=== PATIENT | female | born 1965 | race Caucasian/White ===

== ENCOUNTER 2016-03-16 12:46 | Outpatient (RCR) | payer OTHER ==
--- OUTSIDE RECORDS SUMMARY | 2016-02-03 12:28 | XMS REPORT | Continuity of Care Document ---
Author Author [facility] Organization [facility] Address Unknown Phone Unavailable Care Team Providers Care Liability Claims Adjuster Name Role Phone MICHAEL MACHUCA MD PCP Insurance Providers Payer Name Policy Number Subscriber Name Relationship [employer] [id number] Peter Downing 17 Self / Same As Patient Advance Directives Directive Response Recorded Date/Time Advance Directives No 09/27/14 10:30am Health Care Power of Development Representative No 09/27/14 10:30am Organ Donor No 09/27/14 10:30am Resuscitation Status Full Code 09/27/14 10:30am Problems No known problems or medical conditions. Medications Medication Dose Route Sig Days/Qty Instructions Order Date Discontinued Date Status Alprazolam 1 Mg PO THREE TIMES A DAY 02/02/07 04/23/13 Discontinued Propranolol HCl 02/02/07 02/01/09 Discontinued [Xopenex] 1 Inh INH QID PRN 02/02/07 04/17/13 Discontinued Levothyroxine Sodium 50 Mcg PO DAILY 08/06/08 04/17/13 Discontinued Promethazine HCl/Codeine 01/31/09 06/05/09 Discontinued Propranolol HCl 20 Mg PO FOUR TIMES DAILY 02/01/09 Active Fluoxetine HCl (Prozac) 06/05/09 06/09/10 Discontinued Budesonide/Formoterol Fumarate 2 Puff IH TWICE A DAY 06/09/10 Active Cefuroxime Axetil (Ceftin) 1 Each PO TWICE A DAY 10 Qty 06/13/1009/09 Discontinued Atropine Sulfate/Normal Saline 1 Mg IV 06/13/10 06/13/10 Discontinued Ipratropium [place] 0.5 Mg IH THREE TIMES A DAY 30 Qty 06/13/10 Discontinued Prednisone 10 Mg PO DIRECTED 12 Qty 3 TABS DAILY X2 DAYS 06/13/1004/21 Discontinued Phentermine Hcl 37.5 Mg PO DAILY 09/09/10 04/17/13 Discontinued [Motrin 600MG] PO EVERY 6 HOURS 40 Qty 09/15/10 04/17/13 Discontinued [Tylenol #3] PO EVERY 4HRS 15 Qty 09/15/10 04/17/13 Discontinued Metronidazole 1 Each PO THREE TIMES A DAY 30 Qty 06/30/12 04/17/13 Discontinued Aspirin/Acetaminophen/Caffeine 1 Tab PO EVERY 6 HOURS PRN 04/17/13 04/23/13 Discontinued Albuterol Sulfate/Ipratropium 2.5 Ml IH FOUR TIMES DAILY 04/17/13 Discontinued [Kenalog] 80 Mg IM NEEDED 04/17/13 04/23/13 Discontinued Levothyroxine Sodium (Levothroid) 50 Mcg PO DAILY 04/17/13 Active Phentermine Hcl 15 Mg PO DAILY 04/17/13 04/23/13 Discontinued Omeprazole 20 Mg PO DAILY PRN HEARTBURN 04/17/13 04/23/13 Discontinued Promethazine HCl/Codeine 5 Ml PO EVERY 4HRS PRN COUGH 04/17/13 Active Albuterol Sulfate 2.5 Mg IH THREE TIMES A DAY PT HOME DOSE IS 1.25MG/ 3ML 04/17/13 Active Levofloxacin 1 Each PO DAILY 5 Qty 04/20/13 Active Prednisone 1 Tab PO DAILY 5 Days 04/20/13 Active Ondansetron HCl 8 Mg PO EVERY 4HRS PRN NAUSEA 20 Qty 04/20/13 Active Acetaminophen 500 Mg PO EVERY 6 HOURS PRN PAIN 0 Qty 04/23/13 Active Albuterol Sulfate 2.5 Mg INH RT Q2HR FROM START TIME PRN SHORTNESS OF BREATH 0 Qty 04/23/13 Active Alprazolam 1 Mg PO THREE TIMES A DAY 0 Qty 04/23/13 Active Levofloxacin 250 Mg PO DAILY 5 Qty 04/23/13 Active Prednisone 1 Tab PO DAILY 5 Days 04/23/13 Active Fluconazole 1 Each PO Every 48 Hours 4 Qty 04/23/13 Active Social History Social History Problem Response Recorded Date/Time Alcohol Use Occasionally Uses 04/17/2013 4:41pm Recreational Drug Use No 04/17/2013 4:41pm Recent Foreign Travel No 04/17/2013 4:41pm Recent Infectious Disease Exposure No 04/17/2013 4:41pm Hospitalization with Isolation Denies 04/23/2013 2:53pm Smoking Status Former Smoker 09/27/2014 10:30am Query Response Start Date Stop Date Smoking Status Former Smoker 09/27/2006 Hospital Discharge Instructions No hospital discharge instructions. Plan of Care No plan of care. Functional Status No functional status results. Allergies, Adverse Reactions, Alerts Allergen Type Severity Reaction Status Last Updated Levofloxacin Allergy Unknown NAUSEA/VOMITING, NUMBNESS OF FACE AND ARMS Active 01/17/08 moxifloxacin ([id number]) Allergy Unknown N/V Active 01/17/08 Immunizations Name Given Type Date of Pneumonia Vaccine 04/17/11 Historical Date of Influenza Vaccine 04/19/13 Historical Vital Signs Acute Vital Signs Vital Response Date/Time Temperature (Fahrenheit) 97.0 degrees F (97.6 - 99.5) Temperature (Calculated Celsius) 36.54789 degrees C (36.4 - 37.5) Temperature Source Tympanic Pulse Rate (adult) 84 bpm (60 - 90) Respiratory Rate 20 bpm (12 - 24) O2 Sat by Pulse Oximetry 99 % (88 - 100) Blood Pressure 110/80 mm Hg Pain Pain Intensity 0 Height (Feet) 5 feet Height (Inches) 2.00 inches Height (Calculated Centimeters) 157.800065 cm Weight (Pounds) 112 pounds Weight (Calculated Grams) 83813.346 gm Weight (Calculated Kilograms) 50.897665 kilograms Calculated BMI 20.48 Results Laboratory Results Test Name Result Units Flags Reference Collection Date/Time Result Date/ Time Comments White Blood Count 8.3 10^3/uL 4.3-11.0 09/10/2014 5:33pm 09/10/2014 5: 43pm Red Blood Count 5.05 10^6/uL 4.35-5.85 09/10/2014 5:33pm 09/10/2014 5: 43pm Hemoglobin 14.7 G/DL 11.5-16.0 09/10/2014 5:33pm 09/10/2014 5:43pm Hematocrit 44 % 35-52 09/10/2014 5:33pm 09/10/2014 5:43pm Mean Corpuscular Volume 87 FL 80-99 09/10/2014 5:33pm 09/10/2014 5: 43pm Mean Corpuscular Hemoglobin 29 PG 25-34 09/10/2014 5:33pm 09/10/2014 5: 43pm Mean Corpuscular Hemoglobin Concent 33 G/DL 32-36 09/10/2014 5:33pm 05/2014 5:43pm Red Cell Distribution Width 13.5 % 10.0-14.5 09/10/2014 5:33pm 2014 5:43pm Platelet Count 321 10^3/uL 130-400 09/10/2014 5:33pm 09/10/2014 5:43pm Mean Platelet Volume 10.9 FL H 7.4-10.4 09/10/2014 5:33pm 09/10/2014 5: 43pm Prothrombin Time 11.2 SEC L 12.2-14.7 09/10/2014 5:33pm 09/10/2014 5: 52pm INR Comment 0.8 0.8-1.4 09/10/2014 5:33pm 09/10/2014 5:52pm INTERPRETIVE DATA SUGGESTED THERAPEUTIC RANGE FOR INR'S: VENOUS THROMBOSIS, PULMONARY EMBOLISM, OR PREVENTION OF SYSTEMIC EMBOLISM (EG. IN ATRIAL FIBRILLATION): 2.0 - 3.0 MECHANICAL PROSTHETIC HEART VALVES: 2.5 - 3.5* *NOTE: INR'S UP TO 4.5 MAY BE NECESSARY IN SELECTED GROUPS OF HIGH RISK PATIENTS. [employer] [employer] CONSENSUS CONFERENCE ON ANTITHROMBOTIC THERAPY (2000). Activated Partial Thromboplast Time 31 SEC 24-35 09/10/2014 5:33pm 05/2014 5:53pm Sodium Level 140 MMOL/L 135-145 09/10/2014 5:33pm 09/10/2014 6:03pm Potassium Level 4.7 MMOL/L 3.6-5.0 09/10/2014 5:33pm 09/10/2014 6:03pm Chloride Level 101 MMOL/L 98-107 09/10/2014 5:33pm 09/10/2014 6:03pm Carbon Dioxide Level 29 MMOL/L 21-32 09/10/2014 5:33pm 09/10/2014 6: 03pm Blood Urea Nitrogen 14 MG/DL 7-18 09/10/2014 5:33pm 09/10/2014 6:03pm Creatinine 0.84 MG/DL 0.60-1.30 09/10/2014 5:33pm 09/10/2014 6:03pm BUN/Creatinine Ratio 17 09/10/2014 5:33pm 09/10/2014 6:03pm Estimat Glomerular Filtration Rate > 60 09/10/2014 5:33pm 2014 6:03pm GFR INTERPRETIVE DATA UNITS FOR ESTIMATED GFR (eGFR): mL/min/1.73 M2 REFERENCE RANGE FOR ESTIMATED GFR (eGFR) eGFR NORMAL eGFR >60 MODERATELY DECREASED eGFR 30-59 SEVERLY DECREASED eGFR 15-29 KIDNEY FAILURE <15 (OR DIALYSIS) Glucose Level 97 MG/DL 70-105 09/10/2014 5:33pm 09/10/2014 6:03pm Calcium Level 10.0 MG/DL 8.5-10.1 09/10/2014 5:33pm 09/10/2014 6:03pm Total Bilirubin 0.3 MG/DL 0.1-1.0 09/10/2014 5:33pm 09/10/2014 6:03pm Alkaline Phosphatase 76 U/L 40-136 09/10/2014 5:33pm 09/10/2014 6:03pm Aspartate Amino Transf (AST/SGOT) 18 U/L 5-34 09/10/2014 5:33pm 2014 6:03pm Alanine Aminotransferase (ALT/SGPT) 22 U/L 0-55 09/10/2014 5:33pm 09/10 6:03pm Total Protein 7.5 G/DL 6.4-8.2 09/10/2014 5:33pm 09/10/2014 6:03pm Albumin 4.4 G/DL 3.2-4.5 09/10/2014 5:33pm 09/10/2014 6:03pm Procedures No known history of procedures. Encounters Encounter Location Date/Time Registered [facility] Day [facility] 09/27/14 10:07am Registered Clinic [facility] 09/24/14 9:39am Registered Clinic [facility] 09/10/14 5:26pm
[2016-02-03 13:21] LABS: BASOPHILS % (AUTO) 0 % (0-10); EOSINOPHILS # (AUTO) 0.1 10^3/uL (0.0-0.3); EOSINOPHILS % (AUTO) 1 % (0-10); LYMPHOCYTES # (AUTO) 0.5 X 10^3 (1.0-4.0); LYMPHOCYTES % (AUTO) 11 % (12-44); MEAN CORPUSCULAR HEMOGLOBIN 29 PG (25-34); MEAN CORPUSCULAR HGB CONC 34 G/DL (32-36); MEAN CORPUSCULAR VOLUME 85 FL (80-99); MEAN PLATELET VOLUME 10.5 FL (7.4-10.4); MONOCYTES # (AUTO) 0.4 X 10^3 (0.0-1.0); MONOCYTES % (AUTO) 9 % (0-12); NEUTROPHILS # (AUTO) 3.7 X 10^3 (1.8-7.8); NEUTROPHILS % (AUTO) 79 % (42-75); PLATELET COUNT 221 10^3/uL (130-400); RED BLOOD COUNT 4.73 10^6/uL (4.35-5.85); RED CELL DISTRIBUTION WIDTH 13.4 % (10.0-14.5); WHITE BLOOD COUNT 4.6 10^3/uL (4.3-11.0)
[2016-02-03 14:40] LABS: ALANINE AMINOTRANSFERASE 20 U/L (0-55); ALBUMIN 4.2 G/DL (3.2-4.5); ANION GAP 9 MMOL/L (5-14); ASPARTATE AMINO TRANSFERASE 16 U/L (5-34); BILIRUBIN,TOTAL 0.5 MG/DL (0.1-1.0); BLOOD UREA NITROGEN 13 MG/DL (7-18); BUN/CREATININE RATIO 16; CALCIUM 9.2 MG/DL (8.5-10.1); CARBON DIOXIDE 29 MMOL/L (21-32); CHLORIDE 102 MMOL/L (98-107); CREATININE SERUM 0.83 MG/DL (0.60-1.30); GFR ESTIMATED > 60; GLUCOSE 145 MG/DL (70-105); POTASSIUM 3.5 MMOL/L (3.6-5.0); SODIUM 140 MMOL/L (135-145); TOTAL PROTEIN 6.8 G/DL (6.4-8.2)
[2016-02-03 15:00] LABS: THYROID STIMULATING HORMONE 0.08 UIU/ML (0.35-4.94)
[~2016-03-16 12:46] MED LIST: AC500T PO; ALBU2.5V52 INH; ALBUNEBRX IH; ALPR0.25 PO; ALPR1T PO; ASPI1TAB15 PO; BUDE6HFA IH; CEFU500T5 PO; CODE118S2; CODE118S2 PO; FLC150T PO; FLUO20CA25; HYDR-3730 PO; IPRA0.2S18 IH; IPRA3AMP19 IH; KENALOG IM; LEVO250T7 PO; LVF250T PO; LVT.05T PO; METR500T PO; MOTRIN 600MG PO; OMEP-10 PO; ONDA8TAB6 PO; PHEN15CA67 PO; PHEN37.555 PO; PRD10T PO; PROP20TA23; PROP20TA23 PO; TYLENOL #3 PO; XOPENEX INH; [UNRECOGNIZED DRUG - CODE] IV
[2016-03-16 13:15] LABS: BASOPHILS % (AUTO) 1 % (0-10); EOSINOPHILS # (AUTO) 0.1 10^3/uL (0.0-0.3); EOSINOPHILS % (AUTO) 2 % (0-10); LYMPHOCYTES # (AUTO) 0.6 X 10^3 (1.0-4.0); LYMPHOCYTES % (AUTO) 11 % (12-44); MEAN CORPUSCULAR HEMOGLOBIN 30 PG (25-34); MEAN CORPUSCULAR HGB CONC 34 G/DL (32-36); MEAN CORPUSCULAR VOLUME 87 FL (80-99); MEAN PLATELET VOLUME 10.6 FL (7.4-10.4); MONOCYTES # (AUTO) 0.4 X 10^3 (0.0-1.0); MONOCYTES % (AUTO) 7 % (0-12); NEUTROPHILS # (AUTO) 4.1 X 10^3 (1.8-7.8); NEUTROPHILS % (AUTO) 80 % (42-75); PLATELET COUNT 245 10^3/uL (130-400); RED BLOOD COUNT 4.51 10^6/uL (4.35-5.85); RED CELL DISTRIBUTION WIDTH 13.9 % (10.0-14.5); WHITE BLOOD COUNT 5.2 10^3/uL (4.3-11.0)
[2016-03-16 14:20] LABS: ALANINE AMINOTRANSFERASE 62 U/L (0-55); ALBUMIN 4.4 G/DL (3.2-4.5); ANION GAP 11 MMOL/L (5-14); ASPARTATE AMINO TRANSFERASE 25 U/L (5-34); BILIRUBIN,TOTAL 0.5 MG/DL (0.1-1.0); BLOOD UREA NITROGEN 15 MG/DL (7-18); BUN/CREATININE RATIO 18; CALCIUM 9.2 MG/DL (8.5-10.1); CARBON DIOXIDE 25 MMOL/L (21-32); CHLORIDE 105 MMOL/L (98-107); CREATININE SERUM 0.83 MG/DL (0.60-1.30); GFR ESTIMATED > 60; GLUCOSE 138 MG/DL (70-105); POTASSIUM 3.6 MMOL/L (3.6-5.0); SODIUM 141 MMOL/L (135-145); TOTAL PROTEIN 6.8 G/DL (6.4-8.2)
[2016-03-16 14:43] LABS: THYROID STIMULATING HORMONE 4.07 UIU/ML (0.35-4.94)
== END 2016-05-03 | disposition home or self-care (01) ==
LOC: ONC 12:46
PROVIDERS: ATTEND Internal Medicine Hematology & Oncology
DX: C20 Malignant neoplasm of rectum (principal); E03.9 Hypothyroidism, unspecified; J44.9 Chronic obstructive pulmonary disease, unspecified; Z93.3 Colostomy status; Z79.899 Other long term (current) drug therapy
CPT/HCPCS: 36591; 80053; 80074; 84443; 85025; 99213

== ENCOUNTER → 2016-05-24 | Outpatient (CLI) | payer OTHER ==
[~2016-05-24] MED LIST changes: +CIPR-225 PO; +IPRA3AMP IH
--- OUTSIDE RECORDS SUMMARY | 2016-05-24 17:44 | XMS REPORT | Continuity of Care Document ---
Author Author [facility] Organization [facility] Address Unknown Phone Unavailable Care Team Providers Care Hardscape Foreman Name Role Phone MICHAEL MACHUCA MD PCP Insurance Providers Payer Name Policy Number Subscriber Name Relationship JESSICA [id number] Peter Downing 18 Self / Same As Patient Self Pay Pending [facility] Apprv [id number] Peter Downing 18 Self / Same As Patient Advance Directives Directive Response Recorded Date/Time Advance Directives No 05/11/15 12:19pm Health Care Power of Box Repairer No 05/11/15 12:19pm Organ Donor No 05/11/15 [...] Ml Disp.syrin, 1 Mg Intraven Discontinued Ipratropium [place] 0.5 Mg/2.5 Ml Nebu, 0.5 Mg Inhalation [...] OF FACE AND ARMS Active 01/17/08 moxifloxacin ([id number]) Allergy Unknown N/V Active 01/17/08 Immunizations No [...] Discharge/Depart Date Attending Provider Discharged Recurring [facility] 03/16/16 12:46pm 11:59pm LILIANA JARA MD
[2016-05-24 17:56] LABS: MEAN PLATELET VOLUME 10.9 FL (7.4-10.4); RED BLOOD COUNT 4.91 10^6/uL (4.35-5.85); RED CELL DISTRIBUTION WIDTH 13.2 % (10.0-14.5); WHITE BLOOD COUNT 4.4 10^3/uL (4.3-11.0)
[2016-05-24 18:16] LABS: ANION GAP 12 MMOL/L (5-14); BLOOD UREA NITROGEN 13 MG/DL (7-18); BUN/CREATININE RATIO 15; CARBON DIOXIDE 28 MMOL/L (21-32); CHLORIDE 99 MMOL/L (98-107); CREATININE SERUM 0.85 MG/DL (0.60-1.30); POTASSIUM 4.3 MMOL/L (3.6-5.0); SODIUM 139 MMOL/L (135-145)
[2016-05-24 18:17] LABS: ALANINE AMINOTRANSFERASE 57 U/L (0-55); ALBUMIN 4.3 G/DL (3.2-4.5); ASPARTATE AMINO TRANSFERASE 24 U/L (5-34); BILIRUBIN,TOTAL 0.4 MG/DL (0.1-1.0); CALCIUM 9.3 MG/DL (8.5-10.1); CHOLESTEROL 205 MG/DL (< 200); DIRECT LDL 102 MG/DL (1-129); GFR ESTIMATED > 60; GLUCOSE 97 MG/DL (70-105); TOTAL PROTEIN 7.3 G/DL (6.4-8.2); TRIGLYCERIDES 76 MG/DL (<150); VLDL CHOLESTEROL 15 MG/DL (5-40)
[2016-05-24 18:36] LABS: THYROID STIMULATING HORMONE 0.84 UIU/ML (0.35-4.94)
== END ==
LOC: LAB 17:40
PROVIDERS: ATTEND Nurse Practitioner Family
DX: Z00.00 Encounter for general adult medical examination without abnormal findings (principal)
CPT/HCPCS: 36415; 80053; 80061; 84443; 85027; 87070; 87077; 87186; 87205

== ENCOUNTER 2016-05-31 18:32 | Emergency (ER) | payer OTHER ==
[~2016-05-31] VITALS: Ht 157.5 cm; Wt 58.1 kg
[~2016-05-31 18:32] MED LIST changes: -CIPR-225 PO; -IPRA3AMP IH
--- OUTSIDE RECORDS SUMMARY | 2016-05-31 18:37 | XMS REPORT | Continuity of Care Document ---
Author Author [facility] Organization [facility] Address Unknown Phone Unavailable Care Team Providers Care Leading Firefighter Name Role Phone MICHAEL MACHUCA MD PCP Insurance Providers Payer Name Policy Number Subscriber Name Relationship JESSICA [id number] Peter Downing 18 Self / Same As Patient Self Pay Pending [facility] Apprv [id number] Peter Downing 18 Self / Same As Patient Advance Directives Directive Response Recorded Date/Time Advance Directives No 05/11/15 12:19pm Health Care Power of Sample Display Preparer No 05/11/15 12:19pm Organ Donor No 05/11/15 [...] Ml Disp.syrin, 1 Mg Intraven Discontinued Ipratropium [place] 0.5 Mg/2.5 Ml Nebu, 0.5 Mg [...] OF FACE AND ARMS Active 01/17/08 moxifloxacin ([id number]) Allergy Unknown N/V Active 01/17/08 Immunizations No [...] Discharge/Depart Date Attending Provider Discharged Recurring [facility] 03/16/16 12:46pm 11:59pm LILIANA JARA MD
[2016-05-31] MEDS ORDERED: CIPR-225 PO (18:51)
[2016-05-31] MEDS ORDERED: NS IV 1000 ML 1,000 ML IV ONE (19:08)
[2016-05-31] MEDS ORDERED: methylPREDNISolone 125 MG (Solu-MEDROL) VIAL IVP ONE (19:15)
[2016-05-31] MEDS ORDERED: RT-ALBUTEROL/IPRATROPIUM 3 ML (DUONEB) VIAL INH ONE (19:15)
[2016-05-31 19:22] LABS: BASOPHILS # (AUTO) 0.1 10^3/uL (0.0-0.1); BASOPHILS % (AUTO) 1 % (0-10); EOSINOPHILS # (AUTO) 0.1 10^3/uL (0.0-0.3); EOSINOPHILS % (AUTO) 1 % (0-10); LYMPHOCYTES # (AUTO) 0.8 X 10^3 (1.0-4.0); LYMPHOCYTES % (AUTO) 10 % (12-44); MEAN CORPUSCULAR HEMOGLOBIN 30 PG (25-34); MEAN CORPUSCULAR HGB CONC 34 G/DL (32-36); MEAN CORPUSCULAR VOLUME 87 FL (80-99); MEAN PLATELET VOLUME 10.9 FL (7.4-10.4); MONOCYTES # (AUTO) 0.7 X 10^3 (0.0-1.0); MONOCYTES % (AUTO) 8 % (0-12); NEUTROPHILS % (AUTO) 81 % (42-75); PLATELET COUNT 328 10^3/uL (130-400); WHITE BLOOD COUNT 8.7 10^3/uL (4.3-11.0)
[2016-05-31 19:32] LABS: INR 0.9 (0.8-1.4); PROTHROMBIN TIME PATIENT 11.3 SEC (12.2-14.7)
[2016-05-31 19:33] LABS: BILIRUBIN,URINE NEGATIVE (NEGATIVE); KETONES,URINE NEGATIVE (NEGATIVE); LEUKOCYTE ESTERASE ,URINE 2+ (NEGATIVE); NITRITE,URINE NEGATIVE (NEGATIVE); PH,URINE 7 (5-9); PROTEIN,URINE NEGATIVE (NEGATIVE); UROBILINOGEN,URINE NORMAL (NORMAL)
[2016-05-31 19:34] LABS: SQUAMOUS EPITHELIAL CELL,UR 0-2 /HPF
[2016-05-31 19:40] LABS: ALANINE AMINOTRANSFERASE 22 U/L (0-55); ALBUMIN 4.7 G/DL (3.2-4.5); ANION GAP 14 MMOL/L (5-14); ASPARTATE AMINO TRANSFERASE 16 U/L (5-34); BILIRUBIN,TOTAL 0.4 MG/DL (0.1-1.0); BLOOD UREA NITROGEN 15 MG/DL (7-18); BUN/CREATININE RATIO 16; CALCIUM 9.7 MG/DL (8.5-10.1); CARBON DIOXIDE 27 MMOL/L (21-32); CHLORIDE 98 MMOL/L (98-107); CREATININE SERUM 0.95 MG/DL (0.60-1.30); GFR ESTIMATED > 60; GLUCOSE 103 MG/DL (70-105); POTASSIUM 4.1 MMOL/L (3.6-5.0); SODIUM 139 MMOL/L (135-145); TOTAL PROTEIN 7.9 G/DL (6.4-8.2)
--- NOTE | 2016-05-31 19:55 | Diagnostic Imaging Report ---
INDICATION: Shortness of air. TECHNIQUE: Two view chest at 7:58 p.m. CORRELATION STUDY: 01/16/2015. FINDINGS: The heart size, mediastinal configuration and pulmonary vasculature are within normal limits. Lungs are slightly hyperinflated but overall clear. Hyperlucency at the lung apices compatible with likely bullous changes. Visualized osseous structures are unremarkable. IMPRESSION: 1. Stable chest demonstrates no acute abnormality. Dictated by: Dictated on workstation # [id number]
--- NOTE | 2016-05-31 20:01 | ED General ---
General Chief Complaint: Respiratory Problems Stated Complaint: SOA Nursing Triage Note: PT [facility] OF [employer] HAS BEEN ON ANTIBIOTIC CIPRO SINCE 05/28/16 Nursing Sepsis Screen: No Definite Risk Source of Information: Patient Exam Limitations: No Limitations History of Present Illness Time Seen by Provider: 18:58 Initial Comments This 50-year-old woman presents to the emergency room complaining of difficulty breathing. She feels shaky and sweaty. She developed a cough about 2 weeks ago and has been seen at Dr. Machuca's clinic. She was first started on Augmentin and steroids. Sputum culture was obtained and she was then started on Cipro. She has been taking Cipro since Tuesday. She has COPD but no longer smokes. She has been using nebulizer treatments at home. Her last treatment was at 15:30. She also complains of cramps in her legs. She is afebrile. Review of her sputum culture suggests that Cipro should have been sufficient for treatment of pneumonia if present. Allergies and Home Medications Allergies Coded Allergies: levofloxacin (Verified Allergy, Unknown, NAUSEA/VOMITING, NUMBNESS OF FACE AND ARMS, 01/17/08) moxifloxacin (Verified Allergy, Unknown, N/V, 01/17/08) Home Medications Albuterol Sulfate 2.5 Mg/3 Ml Nebu #0 2.5 MG INH RTQ2H PRN PRN SHORTNESS OF BREATH Prescribed by: SAUNDRA TAYLOR on 04/23/13 1238 Alprazolam 1 Mg Tab #0 1 MG PO TID Prescribed by: SAUNDRA TAYLOR on 04/23/13 1238 Budesonide/Formoterol Fumarate 10.2 Gm Hfa.aer.ad 2 PUFF IH BID (Reported) Ciprofloxacin HCl 500 Mg Tablet 500 MG PO BID (Reported) Ipratropium/Albuterol Sulfate 3 Ml Ampul.neb #20 3 ML IH Q6H PRN PRN SHORTNESS OF BREATH Use every 6 hours scheduled for 2 days, then as needed. Prescribed by: JANY FLORES on 05/31/162011 Levothyroxine Sodium 50 Mcg Tablet 100 MCG PO DAILY (Reported) Prednisone 10 Mg Tab #18 10 MG PO UD 3 tablets for 3 days, then 2 tablets for 3 days, then 1 tablet for 3 days. Prescribed by: JANY FLORES on 2/20/17 2012 Constitutional: see HPI EENTM: no symptoms reported Respiratory: see HPI Cardiovascular: no symptoms reported Gastrointestinal: no symptoms reported Genitourinary: no symptoms reported Musculoskeletal: no symptoms reported Skin: no symptoms reported Psychiatric/Neurological: No Symptoms Reported Hematologic/Lymphatic: No Symptoms Reported Past Zkulnxo-Ygltqs-Gvvrkd Hx Patient Social History Alcohol Use: Rarely Uses Recreational Drug Use: No Smoking Status: Former Smoker Former Smoker/When Quit: Sep 27, 2006 Recent Foreign Travel: No Contact w/Someone Who Travel: No Recent Infectious Disease Expo: No Recent Hopitalizations: No Immunizations Up To Date Date of Pneumonia Vaccine: Apr 17, 2011 Date of Influenza Vaccine: Apr 19, 2013 Surgeries HX Surgeries: Yes ( ENDOMETRIAL ABLATION) Respiratory Hx Respiratory Disorders: Yes Respiratory Disorders: Pneumonia, Chronic Bronchitis, COPD Cardiovascular Hx Cardiac Disorders: Yes (MVP) Neurological Hx Neurological Disorders: Yes Reproductive System : No (ABLATION) Genitourinary Hx Genitourinary Disorders: No Gastrointestinal Hx Gastrointestinal Disorders: Yes (RECTAL CA) Gastrointestinal Disorders: Gastroesophageal Reflux Musculoskeletal Hx Musculoskeletal Disorders: No Endocrine Hx Endocrine Disorders: Yes Endocrine Disorders: Hypothyroidsim HEENT HX ENT Disorders: No Cancer Hx Cancer: Yes Cancer: Rectal Psychosocial Hx Psychiatric Problems: Yes Behavioral Health Disorders: Anxiety Integumentary HX Skin/Integumentary Disorder: No Blood Transfusions Hx Blood Disorders: No Physical Exam-Suspected Sepsis Physical Exam Vital Signs Vital Sign - Last 12Hours 05/31/16 05/31/16 18:43 19:00 Temp 97.7 Pulse 110 Resp 18 B/P 109/82 Pulse Ox 99 O2 Delivery Nasal Cannula O2 Flow Rate 2 FiO2 99 Capillary Refill : Less Than 3 Seconds Blood Pressure Mean: 91 General Appearance: No Apparent Distress WD/WN HEENT: PERRL/EOMI Normal ENT Inspection Pharynx Normal Neck: Normal Inspection Respiratory: No Accessory Muscle Use No Respiratory Distress Wheezing (very tight wheezing) Cardiovascular: Regular Rate, Rhythm No Edema Gastrointestinal: Non Tender Soft Extremity: Normal Inspection No Pedal Edema Neurologic/Psychiatric: Alert Oriented x3 No Motor/Sensory Deficits Normal 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/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 Norm as Tested Skin: normal color warm/dry Progress/Results/Core Measures Suspected Sepsis Recent Fever Within 48 Hours: No Infection Criteria Present: None New/Unexplained Altered Menta: No Sepsis Screen: No Definite Risk Sepsis Diagnosis: SIRS Temperature:97.7 Pulse: 110 Respiratory Rate: 18 Laboratory Tests 05/31/16 19:10: White Blood Count 8.7 Blood Pressure 109 /82 Mean: 91 Laboratory Tests 05/31/16 19:10: Creatinine 0.95, INR Comment 0.9, Platelet Count 328, Total Bilirubin 0.4 Results/Orders Lab Results Laboratory Tests Test 05/31/16 19:10 Range/Units Activated Partial Thromboplast Time 26 24-35 SEC Alanine Aminotransferase (ALT/SGPT) 22 0-55 U/L Albumin 4.7 H 3.2-4.5 G/DL Alkaline Phosphatase 99 40-136 U/L Anion Gap 14 5-14 MMOL/L Aspartate Amino Transf (AST/SGOT) 16 5-34 U/L BUN/Creatinine Ratio 16 Basophils # (Auto) 0.1 0.0-0.1 10^3/uL Basophils (%) (Auto) 1 0-10 % Blood Urea Nitrogen 15 7-18 MG/DL Calcium Level 9.7 8.5-10.1 MG/DL Carbon Dioxide Level 27 21-32 MMOL/L Chloride Level 98 98-107 MMOL/L Creatinine 0.95 0.60-1.30 MG/DL Eosinophils # (Auto) 0.1 0.0-0.3 10^3/uL Eosinophils (%) (Auto) 1 0-10 % Estimat Glomerular Filtration Rate > 60 Glucose Level 103 70-105 MG/DL Hematocrit 47 35-52 % Hemoglobin 16.0 11.5-16.0 G/DL INR Comment 0.9 0.8-1.4 Lactic Acid Level 1.0 0.5-2.0 MMOL/L Lymphocytes # (Auto) 0.8 L 1.0-4.0 X 10^3 Lymphocytes (%) (Auto) 10 L 12-44 % Mean Corpuscular Hemoglobin 30 25-34 PG Mean Corpuscular Hemoglobin Concent 34 32-36 G/DL Mean Corpuscular Volume 87 80-99 FL Mean Platelet Volume 10.9 H 7.4-10.4 FL Monocytes # (Auto) 0.7 0.0-1.0 X 10^3 Monocytes (%) (Auto) 8 0-12 % Neutrophils # (Auto) 7.0 1.8-7.8 X 10^3 Neutrophils (%) (Auto) 81 H 42-75 % Platelet Count 328 130-400 10^3/uL Potassium Level 4.1 3.6-5.0 MMOL/L Prothrombin Time 11.3 L 12.2-14.7 SEC Red Blood Count 5.40 4.35-5.85 10^6/uL Red Cell Distribution Width 13.0 10.0-14.5 % Sodium Level 139 135-145 MMOL/L Total Bilirubin 0.4 0.1-1.0 MG/DL Total Protein 7.9 6.4-8.2 G/DL Urine Bacteria NONE /HPF Urine Bilirubin NEGATIVE NEGATIVE Urine Casts NONE /LPF Urine Clarity CLEAR Urine Color PALE YELLOW Urine Crystals NONE /LPF Urine Culture Indicated NO Urine Glucose (UA) NEGATIVE NEGATIVE Urine Ketones NEGATIVE NEGATIVE Urine Leukocyte Esterase 2+ H NEGATIVE Urine Mucus NEGATIVE /LPF Urine Nitrite NEGATIVE NEGATIVE Urine Protein NEGATIVE NEGATIVE Urine RBC NONE /HPF Urine RBC (Auto) NEGATIVE NEGATIVE Urine Specific [place] 1.005 L 1.016-1.022 Urine Squamous Epithelial Cells 0-2 /HPF Urine Urobilinogen NORMAL NORMAL MG/DL Urine WBC 2-5 /HPF Urine pH 7 5-9 White Blood Count 8.7 4.3-11.0 10^3/uL Micro Results Microbiology 05/31/16 Influenza Types A,B Antigen (YANDY) - Final, Complete My Orders Orders-JANY ENRIQUEZ MD Albuterol/Ipra Inhalation Soln (Duoneb I (05/31/16 19:15) Saline Lock/Iv-Start (05/31/16 19:08) Ns Iv 1000 Ml (Sodium Chloride 0.9%) (05/31/16 19:08) Chest Pa/Lat (2 View) (05/31/16 19:08) Cbc With Automated Diff (05/31/16 19:08) Comprehensive Metabolic Panel (05/31/16 19:08) Lactic Acid Analyzer (05/31/16 19:08) Blood Culture (05/31/16 19:08) Ua Culture If Indicated (05/31/16 19:08) Protime With Inr (05/31/16 19:08) Partial Thromboplastin Time (05/31/16 19:08) O2 (05/31/16 19:08) Saline Lock/Iv-Start (05/31/16 19:08) Saline Lock/Iv-Start (05/31/16 19:08) Vital Signs Adult Sepsis Patie Q1HR (05/31/16 19:08) Remove Rings In Anticipation O (05/31/16 19:08) Influenza A And B Antigens (05/31/16 19:08) Svn Sm Volume Nebulizer Rt-Rfs (05/31/16 19:08) Methylprednisolone Sod Succ (Solu-Medrol (05/31/16 19:15) Medications Given in ED Current Medications Medications Dose Ordered Sig/Jennifer Route Start Time Stop Time Status Last Admin Dose Admin Albuterol/ Ipratropium 3 ml 3 ml ONCE ONCE INH 05/31/16 19:15 05/31/16 19:16 DC 05/31/16 19:13 3 ML Methylprednisolone Sodium Succinate 62.5 mg ONCE ONCE IVP 05/31/16 19:15 05/31/16 19:16 DC 05/31/16 19:37 62.5 MG Sodium Chloride 1,000 ml @ 0 mls/hr Q0M ONCE IV 05/31/16 19:08 05/31/16 19:11 DC 05/31/16 19:37 0 MLS/HR Vital Signs/I&O Vital Sign - Last 12Hours 05/31/16 05/31/16 05/31/16 05/31/16 18:43 19:00 19:13 20:20 Temp 97.7 98.0 Pulse 110 90 Resp 18 16 B/P 109/82 Pulse Ox 99 98 97 O2 Delivery Nasal Cannula O2 Flow Rate 2 2.00 FiO2 99 Intake and Output 06/01/16 00:00 Intake Total 1000 ml Balance 1000 ml Capillary Refill : Less Than 3 Seconds Blood Pressure Mean: 91 Progress Note : Progress Note Because patient was thought to have pneumonia and was tachycardic, septic workup was pursued. Workup was relatively unremarkable including chest x-ray. Patient improved with DuoNeb treatment and Solu-Medrol. A liter of IV fluids was administered. She was ultimately sent home in stable condition. Diagnostic Imaging Diagonstic Imaging: Xray Plain Films/CT/US/NM/MRI: chest Comments Chest x-ray viewed by me and report reviewed. See report below: NAME: PETER ZARAGOZA [facility] REC#: [id number] PT STATUS: REG ER : 1965 PHYSICIAN: JANY ENRIQUEZ MD ADMIT DATE: 05/31/16/ER Draft Date of Exam:05/31/16 CHEST PA/LAT (2 VIEW) INDICATION: Shortness of air. TECHNIQUE: Two view chest at 7:58 p.m. CORRELATION STUDY: 01/16/2015. FINDINGS: The heart size, mediastinal configuration and pulmonary vasculature are within normal limits. Lungs are slightly hyperinflated but overall clear. Hyperlucency at the lung apices compatible with likely bullous changes. Visualized osseous structures are unremarkable. IMPRESSION: 1. Stable chest demonstrates no acute abnormality. Dictated on workstation # [id number] Dict: 05/31/161950 Trans: 05/31/161954 [id number] Interpreted by: GAY NELSON DO Departure Impression Impression: Primary Impression: COPD exacerbation Disposition: 01 HOME, SELF-CARE Condition: Improved Decision to Admit Reason: Admit from ER (General) Departure-Patient Inst. Decision time for Depature: 20:00 Referrals: MICHAEL MACHUCA MD (PCP/Family) Primary Care Physician Patient Instructions: Exacerbation of COPD Add. Discharge Instructions: Complete your medications as prescribed by Dr. Machuca. You may substitute DuoNeb for Albuterol and use as prescribed. Follow-up with Dr. Machuca later this week. Return to care if symptoms worsen. All discharge instructions reviewed with patient and/or family. Voiced understanding. Scripts Ipratropium/Albuterol Sulfate (Iprat-Albut 0.5-3(2.5) mg/3 ml)3 Ml Ampul.neb3 Ml IH Q6H PRN SHORTNESS OF BREATH #20 EACH Use every 6 hours scheduled for 2 days, then as needed. Prov:JANY ENRIQUEZ MD 05/31/16 Prednisone 10 Mg Tab10 Mg PO UD #18 TAB 3 tablets for 3 days, then 2 tablets for 3 days, then 1 tablet for 3 days. Prov:JANY ENRIQUEZ MD 05/31/16 Copy Copies To 1: MICHAEL MACHUCA MD, JOSHUA T MD May 31, 2016 20:01
[2016-05-31] MEDS ORDERED: IPRA3AMP IH (20:12)
[2016-05-31] MEDS ORDERED: PRD10T PO (20:12)
[2016-05-31 20:20] VITALS: BP 130/99
== END 2016-05-31 20:18 | disposition home or self-care (01) ==
LOC: EDUNIT# 18:32 → ER 18:33
DX: J44.1 Chronic obstructive pulmonary disease with (acute) exacerbation (principal); Z87.891 Personal history of nicotine dependence
CPT/HCPCS: 36415; 71020; 80053; 81000; 83605; 85025; 85610; 85730; 87040; 87804; 94640; 96361; 96374

== ENCOUNTER 2016-07-13 13:49 | Outpatient (RCR) | payer OTHER ==
--- OUTSIDE RECORDS SUMMARY | 2016-05-04 15:43 | XMS REPORT | Continuity of Care Document ---
Author Author [facility] Organization [facility] Address Unknown Phone Unavailable Care Team Providers Care Drying Can Worker Name Role Phone MICHAEL MACHUCA MD PCP Insurance Providers Payer Name Policy Number Subscriber Name Relationship JESSICA [id number] Peter Downing 18 Self / Same As Patient Self Pay Pending [facility] Apprv [id number] Peter Downing 18 Self / Same As Patient Advance Directives Directive Response Recorded Date/Time Advance Directives No 05/11/15 12:19pm Health Care Power of Boatbuilder Apprentice Wood No 05/11/15 12:19pm Organ Donor No 05/11/15 12:19pm Problems Active Problems Medical Problem Onset Date Status Corticosteroids adverse reaction Unknown Acute Medications Current Home Medications Medication Dose Units Route Directions Days/Qty Instructions Start Date Propranolol Hcl 20 Mg 20 Mg Oral Four Times Daily 02/01/09 Budesonide/Formoterol Fumarate 10.2 Gm 2 Puff Inhalation Twice A Day 06/09/10 Levothyroxine Sodium (Levothroid) 50 Mcg 50 Mcg Oral Daily 04/17/13 Albuterol Sulfate 2.5 Mg/3 Ml 2.5 Mg Inhalation Rt Q2hr From Start Time as needed for Shortness Of Breath 0 04/23/13 Alprazolam 1 Mg 1 Mg Oral Three Times A Day 0 04/23/13 Hydrocodone/Acetaminophen 1 Each 1-2 Each Oral Every 6 Hours 35 Alprazolam 0.25 Mg 0.25 Mg Oral Three Times A Day 10 05/11/15 Past Home Medications Medication Directions Ordered Status Alprazolam 1 Mg Tablet, 1 Mg Oral Three Times A Day 02/02/07 Discontinued Propranolol Hcl 20 Mg Tablet, 02/02/07 Discontinued [Xopenex] Inh, 1 Inh Inhalation Qid Prn 02/02/07 Discontinued Levothyroxine Sodium 50 Mcg Tab, 50 Mcg Oral Daily 08/06/08 Discontinued Promethazine Hcl/Codeine 120 Ml Syrup, 01/31/09 Discontinued Fluoxetine Hcl (Prozac) 20 Mg Capsule, 06/05/09 Discontinued Cefuroxime Axetil (Ceftin) 500 Mg Tablet, 1 Each Oral Twice A Day 06/13/10 Discontinued Atropine Sulfate/Normal Saline 1 Mg/2.5 Ml Disp.syrin, 1 Mg Intraven Discontinued Ipratropium [place] 0.5 Mg/2.5 Ml Nebu, 0.5 Mg Inhalation Three Times A Day 06/13/10 Discontinued Prednisone 10 Mg Tab, 10 Mg Oral As Directed 06/13/10 Discontinued Phentermine Hcl 37.5 Mg Capsule, 37.5 Mg Oral Daily 09/09/10 Discontinued [Motrin 600MG] , Oral Every 6 Hours 09/15/10 Discontinued [Tylenol #3] , Oral Every 4HRS 09/15/10 Discontinued Metronidazole 500 Mg Tab, 1 Each Oral Three Times A Day 06/30/12 Discontinued Aspirin/Acetaminophen/Caffeine 1 Each Tablet, 1 Tab Oral Every 6 Hours as needed for 04/17/13 Discontinued Albuterol Sulfate/Ipratropium 3 Ml Solution, 2.5 Ml Inhalation Four Times Daily 04/17/13 Discontinued [Kenalog] , 80 Mg Intramusc As Needed 04/17/13 Discontinued Phentermine Hcl 15 Mg Capsule, 15 Mg Oral Daily 04/17/13 Discontinued Omeprazole 20 Mg Capsule.dr, 20 Mg Oral Daily as needed for Heartburn Discontinued Promethazine Hcl/Codeine 120 Ml Syrup, 5 Ml Oral Every 4HRS as needed for Cough 04/17/13 Discontinued Albuterol Sulfate 2.5 Mg/3 Ml Vial.neb, 2.5 Mg Inhalation Three Times A Day 04/17/13 Discontinued Levofloxacin 250 Mg Tab, 1 Each Oral Daily 04/20/13 Discontinued Prednisone 10 Mg Tab, 1 Tab Oral Daily 04/20/13 Discontinued Ondansetron Hcl 8 Mg Tablet, 8 Mg Oral Every 4HRS as needed for Nausea Discontinued Acetaminophen 500 Mg Tablet, 500 Mg Oral Every 6 Hours as needed for Pain Discontinued Levofloxacin 250 Mg Tab, 250 Mg Oral Daily 04/23/13 Discontinued Prednisone 10 Mg Tab, 1 Tab Oral Daily 04/23/13 Discontinued Fluconazole 150 Mg Tablet, 1 Each Oral Every 48 Hours 04/23/13 Discontinued Social History Social History Problem Response Recorded Date/Time Alcohol Use Occasionally Uses 05/11/2015 12:19pm Recreational Drug Use No 05/11/2015 12:19pm Recent Foreign Travel No 04/17/2013 4:41pm Recent Infectious Disease Exposure No 04/17/2013 4:41pm Hospitalization with Isolation Denies 04/23/2013 2:53pm Do you dip or chew tobacco? No 05/11/2015 12:19pm Hospitalization with Isolation Denies 04/23/2013 2:53pm Hx Sexually Transmitted Disorders No 09/09/2010 10:17am Hospital Discharge Instructions No hospital discharge instructions. Plan of Care Prescriptions See Medication Section Functional Status No functional status results. Allergies, Adverse Reactions, Alerts Allergen Type Severity Reaction Status Last Updated Levofloxacin Allergy Unknown NAUSEA/VOMITING, NUMBNESS OF FACE AND ARMS Active 01/17/08 moxifloxacin ([id number]) Allergy Unknown N/V Active 01/17/08 Immunizations No immunization records. Vital Signs No known vital signs results. Results Laboratory Results Test Name Result Units Flags Reference Collection Date/Time Result Date/ Time Comments White Blood Count 5.2 10^3/uL 4.3-11.0 03/16/2016 1:06pm 03/16/2016 1: 18pm Red Blood Count 4.51 10^6/uL 4.35-5.85 03/16/2016 1:06pm 03/16/2016 1: 18pm Hemoglobin 13.4 G/DL 11.5-16.0 03/16/2016 1:06pm 03/16/2016 1:18pm Hematocrit 39 % 35-52 03/16/2016 1:06pm 03/16/2016 1:18pm Mean Corpuscular Volume 87 FL 80-99 03/16/2016 1:06pm 03/16/2016 1: 18pm Mean Corpuscular Hemoglobin 30 PG 25-34 03/16/2016 1:06pm 03/16/2016 1: 18pm Mean Corpuscular Hemoglobin Concent 34 G/DL 32-36 03/16/2016 1:06pm 09/2015 1:18pm Red Cell Distribution Width 13.9 % 10.0-14.5 03/16/2016 1:06pm 2015 1:18pm Platelet Count 245 10^3/uL 130-400 03/16/2016 1:06pm 03/16/2016 1:18pm Mean Platelet Volume 10.6 FL H 7.4-10.4 03/16/2016 1:06pm 03/16/2016 1: 18pm Neutrophils (%) (Auto) 80 % H 42-75 03/16/2016 1:06pm 03/16/2016 1:18pm Lymphocytes (%) (Auto) 11 % L 12-44 03/16/2016 1:06pm 03/16/2016 1:18pm Monocytes (%) (Auto) 7 % 0-12 03/16/2016 1:06pm 03/16/2016 1:18pm Eosinophils (%) (Auto) 2 % 0-10 03/16/2016 1:06pm 03/16/2016 1:18pm Basophils (%) (Auto) 1 % 0-10 03/16/2016 1:06pm 03/16/2016 1:18pm Neutrophils # (Auto) 4.1 X 10^3 1.8-7.8 03/16/2016 1:06pm 03/16/2016 1: 18pm Lymphocytes # (Auto) 0.6 X 10^3 L 1.0-4.0 03/16/2016 1:06pm 03/16/2016 1: 18pm Monocytes # (Auto) 0.4 X 10^3 0.0-1.0 03/16/2016 1:06pm 03/16/2016 1: 18pm Eosinophils # (Auto) 0.1 10^3/uL 0.0-0.3 03/16/2016 1:06pm 03/16/2016 1 :18pm Basophils # (Auto) 0.0 10^3/uL 0.0-0.1 03/16/2016 1:06pm 03/16/2016 1: 18pm Sodium Level 141 MMOL/L 135-145 03/16/2016 1:06pm 03/16/2016 2:21pm Potassium Level 3.6 MMOL/L 3.6-5.0 03/16/2016 1:06pm 03/16/2016 2:21pm Chloride Level 105 MMOL/L 98-107 03/16/2016 1:06pm 03/16/2016 2:21pm Carbon Dioxide Level 25 MMOL/L 21-32 03/16/2016 1:06pm 03/16/2016 2: 21pm Anion Gap 11 MMOL/L 5-14 03/16/2016 1:pm 03/16/2016 2:21pm Blood Urea Nitrogen 15 MG/DL 7-18 03/16/2016 1:06pm 03/16/2016 2:21pm Creatinine 0.83 MG/DL 0.60-1.30 03/16/2016 1:06pm 03/16/2016 2:21pm BUN/Creatinine Ratio 18 03/16/2016 1:pm 03/16/2016 2:21pm Estimat Glomerular Filtration Rate > 60 03/16/2016 1:06pm 2015 2:21pm GFR INTERPRETIVE DATA UNITS FOR ESTIMATED GFR (eGFR): mL/min/1.73 M2 REFERENCE RANGE FOR ESTIMATED GFR (eGFR) eGFR NORMAL eGFR >60 MODERATELY DECREASED eGFR 30-59 SEVERLY DECREASED eGFR 15-29 KIDNEY FAILURE <15 (OR DIALYSIS) Glucose Level 138 MG/DL H 70-105 03/16/2016 1:06pm 03/16/2016 2:21pm Calcium Level 9.2 MG/DL 8.5-10.1 03/16/2016 1:pm 03/16/2016 2:21pm Total Bilirubin 0.5 MG/DL 0.1-1.0 03/16/2016 1:06pm 03/16/2016 2:21pm Alkaline Phosphatase 104 U/L 40-136 03/16/2016 1:06pm 03/16/2016 2: 21pm Aspartate Amino Transf (AST/SGOT) 25 U/L 5-34 03/16/2016 1:06pm 2015 2:21pm Alanine Aminotransferase (ALT/SGPT) 62 U/L H 0-55 03/16/2016 1:06pm 03/16 2:21pm Total Protein 6.8 G/DL 6.4-8.2 03/16/2016 1:06pm 03/16/2016 2:21pm Albumin 4.4 G/DL 3.2-4.5 03/16/2016 1:06pm 03/16/2016 2:21pm Thyroid Stimulating Hormone (TSH) 4.07 UIU/ML 0.35-4.94 03/16/2016 1: 06pm 03/16/2016 2:44pm Procedures No known history of procedures. Encounters Encounter Location Arrival/Admit Date Discharge/Depart Date Attending Provider Discharged Recurring [facility] 03/16/16 12:46pm 11:59pm LILIANA JARA MD
[~2016-07-13 13:49] MED LIST changes: +CIPR-225 PO; +IPRA3AMP IH
[2016-07-13 14:17] LABS: BASOPHILS % (AUTO) 0 % (0-10); EOSINOPHILS # (AUTO) 0.1 10^3/uL (0.0-0.3); EOSINOPHILS % (AUTO) 1 % (0-10); LYMPHOCYTES # (AUTO) 0.7 X 10^3 (1.0-4.0); LYMPHOCYTES % (AUTO) 11 % (12-44); MEAN CORPUSCULAR HEMOGLOBIN 30 PG (25-34); MEAN CORPUSCULAR HGB CONC 34 G/DL (32-36); MEAN CORPUSCULAR VOLUME 88 FL (80-99); MEAN PLATELET VOLUME 11.5 FL (7.4-10.4); MONOCYTES # (AUTO) 0.6 X 10^3 (0.0-1.0); MONOCYTES % (AUTO) 9 % (0-12); NEUTROPHILS # (AUTO) 5.3 X 10^3 (1.8-7.8); NEUTROPHILS % (AUTO) 79 % (42-75); PLATELET COUNT 247 10^3/uL (130-400); RED CELL DISTRIBUTION WIDTH 12.8 % (10.0-14.5); WHITE BLOOD COUNT 6.7 10^3/uL (4.3-11.0)
[2016-07-13 14:35] LABS: ALBUMIN 3.9 G/DL (3.2-4.5); BILIRUBIN,TOTAL 0.3 MG/DL (0.1-1.0); CREATININE SERUM 0.98 MG/DL (0.60-1.30); POTASSIUM 4.1 MMOL/L (3.6-5.0); TOTAL PROTEIN 6.4 G/DL (6.4-8.2)
[2016-07-13 14:56] LABS: THYROID STIMULATING HORMONE 0.04 UIU/ML (0.35-4.94)
== END 2016-08-02 | disposition home or self-care (01) ==
LOC: ONC 13:49
PROVIDERS: ATTEND Internal Medicine Hematology & Oncology
DX: C20 Malignant neoplasm of rectum (principal); E03.9 Hypothyroidism, unspecified; J44.9 Chronic obstructive pulmonary disease, unspecified; Z93.3 Colostomy status; Z79.899 Other long term (current) drug therapy; Z45.2 Encounter for adjustment and management of vascular access device
CPT/HCPCS: 36415; 36591; 80053; 82378; 84443; 85025; 96523; 99213

== ENCOUNTER 2016-07-19 13:44 | Emergency (ER) | payer OTHER ==
[~2016-07-19] VITALS: Ht 157.5 cm; Wt 56.7 kg
[2016-07-19] MEDS ORDERED: NS IV 1000 ML 1,000 ML IV ONE (14:40)
[2016-07-19] MEDS ORDERED: KETOROLAC 30 MG/ML VIAL IVP STA (14:40)
[2016-07-19] MEDS ORDERED: ONDANSETRON 4 MG/2 ML (SDV) Z0FRAN IVP ONE (14:45)
[2016-07-19 14:46] LABS: BASOPHILS % (AUTO) 0 % (0-10); EOSINOPHILS % (AUTO) 0 % (0-10); LYMPHOCYTES # (AUTO) 0.4 X 10^3 (1.0-4.0); LYMPHOCYTES % (AUTO) 3 % (12-44); MEAN CORPUSCULAR HEMOGLOBIN 29 PG (25-34); MEAN CORPUSCULAR HGB CONC 33 G/DL (32-36); MEAN CORPUSCULAR VOLUME 88 FL (80-99); MEAN PLATELET VOLUME 11.1 FL (7.4-10.4); MONOCYTES # (AUTO) 0.8 X 10^3 (0.0-1.0); MONOCYTES % (AUTO) 7 % (0-12); NEUTROPHILS # (AUTO) 9.6 X 10^3 (1.8-7.8); NEUTROPHILS % (AUTO) 90 % (42-75); PLATELET COUNT 182 10^3/uL (130-400); RED BLOOD COUNT 4.59 10^6/uL (4.35-5.85); RED CELL DISTRIBUTION WIDTH 12.8 % (10.0-14.5); WHITE BLOOD COUNT 10.7 10^3/uL (4.3-11.0)
[2016-07-19 14:59] LABS: BAND NEUTROPHILS 14 %; BASOPHILS % (MANUAL) 0 %; EOSINOPHILS % (MANUAL) 0 %; LYMPHOCYTES % (MANUAL) 4 %; NEUTROPHILS % (MANUAL) 77 %
[2016-07-19 15:04] LABS: ALANINE AMINOTRANSFERASE 58 U/L (0-55); ANION GAP 9 MMOL/L (5-14); ASPARTATE AMINO TRANSFERASE 53 U/L (5-34); BILIRUBIN,TOTAL 0.7 MG/DL (0.1-1.0); BLOOD UREA NITROGEN 10 MG/DL (7-18); BUN/CREATININE RATIO 13; CALCIUM 9.2 MG/DL (8.5-10.1); CARBON DIOXIDE 26 MMOL/L (21-32); CHLORIDE 100 MMOL/L (98-107); CREATININE SERUM 0.79 MG/DL (0.60-1.30); GFR ESTIMATED > 60; GLUCOSE 102 MG/DL (70-105); POTASSIUM 3.8 MMOL/L (3.6-5.0); SODIUM 135 MMOL/L (135-145); TOTAL PROTEIN 6.7 G/DL (6.4-8.2)
[2016-07-19 15:07] LABS: BILIRUBIN,URINE NEGATIVE (NEGATIVE); KETONES,URINE NEGATIVE (NEGATIVE); LEUKOCYTE ESTERASE ,URINE 1+ (NEGATIVE); NITRITE,URINE NEGATIVE (NEGATIVE); PH,URINE 7 (5-9); PROTEIN,URINE NEGATIVE (NEGATIVE); UROBILINOGEN,URINE NORMAL (NORMAL)
--- NOTE | 2016-07-19 15:21 | ED General ---
General Chief Complaint: General Problems/Pain Stated Complaint: PAIN ALL OVER/VOMITING SHAKEY Nursing Triage Note: PT TO ED FROM [facility] FOR C/O GENERALIZED PAIN ONSET THIS AM, WORSE THROUGHOUT THE DAY. ALSO C/O N/V ONSET THIS AM ET DIARRHEA LAST NOC Nursing Sepsis Screen: No Definite Risk Source of Information: Patient, Family Exam Limitations: No Limitations (VONDA KENDALL) History of Present Illness Time Seen by Provider: 15:20 Initial Comments Patient seen and evaluated by Dr. Muñoz. (VONDA KENDALL) Initial Comments Here from [facility] center with body aches overall and shaking. She had diarrhea yesterday followed by no stool today. She has drink a fair amount today and still has had no output. She has history of colon cancer and stoma. She states her stoma is dry and has not had stool today. Complains of pain to the abdomen that worsens was straightening her legs. She complains of all large muscle group pain. Also complains of mild headache. Denies fever. Timing/Duration: 24 Hours Severity: Moderate Associated Systoms: No Chest Pain, No Cough, No Fever/Chills, No Nausea/ Vomiting, No Shortness of Air, Weakness (CONRAD MUÑOZ MD) Allergies and Home Medications Allergies Coded Allergies: levofloxacin (Verified Allergy, Unknown, NAUSEA/VOMITING, NUMBNESS OF FACE AND ARMS, 01/17/08) moxifloxacin (Verified Allergy, Unknown, N/V, 01/17/08) Home Medications Albuterol Sulfate 2.5 Mg/3 Ml Nebu, 2.5 MG INH RTQ2H PRN for SHORTNESS OF BREATH , #0 Prescribed by: SAUNDRA TAYLOR on 04/23/13 1238 Alprazolam 1 Mg Tab, 1 MG PO TID, #0 Prescribed by: SAUNDRA A COLTRIN on 04/23/13 1238 Budesonide/Formoterol Fumarate 10.2 Gm Hfa.aer.ad, 2 PUFF IH BID, (Reported) Ciprofloxacin HCl 500 Mg Tablet, 500 MG PO BID, (Reported) Ipratropium/Albuterol Sulfate 3 Ml Ampul.neb, 3 ML IH Q6H PRN for SHORTNESS OF BREATH, #20 Use every 6 hours scheduled for 2 days, then as needed. Prescribed by: JANY FLORES on 05/31/162011 Levothyroxine Sodium 50 Mcg Tablet, 100 MCG PO DAILY, (Reported) Prednisone 10 Mg Tab, 10 MG PO UD, #18 3 tablets for 3 days, then 2 tablets for 3 days, then 1 tablet for 3 days. Prescribed by: JANY FLORES on 05/31/162011 Constitutional: see HPI, No chills, No fever EENTM: no symptoms reported Respiratory: no symptoms reported Cardiovascular: no symptoms reported Gastrointestinal: see HPI, abdominal pain, diarrhea, No nausea, No vomiting Genitourinary: no symptoms reported Musculoskeletal: see HPI, muscle pain, muscle weakness Skin: no symptoms reported Psychiatric/Neurological: No Symptoms Reported (CONRAD MUÑOZ MD) All Other Systems Reviewed Negative Unless Noted: Yes (CONRAD MUÑOZ MD) Past Jdwrwpa-Cbfkdk-Mcpwaq Hx Patient Social History Alcohol Use: Rarely Uses Recreational Drug Use: No Smoking Status: Former Smoker Former Smoker/When Quit: Sep 27, 2006 2nd Hand Smoke Exposure: No Recent Foreign Travel: No Contact w/Someone Who Travel: No Recent Infectious Disease Expo: No Recent Hopitalizations: No (VONDA KENDALL) Alcohol Use: Rarely Uses Recreational Drug Use: No Smoking Status: Former Smoker (CONRAD MUÑOZ MD) Immunizations Up To Date Date of Pneumonia Vaccine: Apr 17, 2011 Date of Influenza Vaccine: Apr 19, 2013 (VONDA KENDALL) Surgeries HX Surgeries: Yes ( ENDOMETRIAL ABLATION, COLOSTOMY) Surgeries: Abdominal (VONDA KENDALL) Respiratory Hx Respiratory Disorders: Yes Respiratory Disorders: Pneumonia, Chronic Bronchitis, COPD (VONDA KENDALL) Cardiovascular Hx Cardiac Disorders: Yes (MVP) (VONDA KENDALL) Neurological Hx Neurological Disorders: Yes (VONDA KENDALL) Genitourinary Hx Genitourinary Disorders: No (VONDA KENDALL) Gastrointestinal Hx Gastrointestinal Disorders: Yes (RECTAL CA) Gastrointestinal Disorders: Gastroesophageal Reflux (VONDA KENDALL) Musculoskeletal Hx Musculoskeletal Disorders: No (VONDA KENDALL) Endocrine Hx Endocrine Disorders: Yes Endocrine Disorders: Hypothyroidsim (VONDA KENDALL) HEENT HX ENT Disorders: No (VONDA KENDALL) Cancer Hx Cancer: Yes Cancer: Rectal (VONDA KENDALL) Psychosocial Hx Psychiatric Problems: Yes Behavioral Health Disorders: Anxiety (VONDA KENDALL) Integumentary HX Skin/Integumentary Disorder: No (VONDA KENDALL) Blood Transfusions Hx Blood Disorders: No (VONDA KENDALL) Reviewed Nursing Assessment Reviewed/Agree w Nursing PMH: Yes (CONRAD MUÑOZ MD) Family Medical History Significant Family History: No Pertinent Family Hx (CONRAD MUÑOZ MD) Physical Exam Vital Signs Vital Sign - Last 12Hours 07/19/16 13:55 Temp 98.2 Pulse 125 Resp 20 B/P (MAP) 133/78 Pulse Ox 96 O2 Delivery Room Air (CONRAD MUÑOZ MD) Vital Signs Capillary Refill : Less Than 3 Seconds (VONDA KENDALL) General Appearance: WD/WN, Mild Distress HEENT: PERRL/EOMI, Pharynx Normal Neck: Non Tender, Supple Respiratory: Lungs Clear, Normal Breath Sounds Cardiovascular: Regular Rate, Rhythm, No Murmur Gastrointestinal: Non Tender, Soft Back: Normal Inspection, No CVA Tenderness, No Vertebral Tenderness Extremity: Normal Range of Motion, Other (tender to all the large muscle groups.) Neurologic/Psychiatric: Alert, Oriented x3 (CONRAD MUÑOZ MD) Focused Exam Lactic Acid Level Laboratory Tests Test 07/19/16 14:30 Lactic Acid Level 0.88 MMOL/L (0.50-2.00) (CONRAD MUÑOZ MD) Progress/Results/Core Measures Results/Orders Lab Results Laboratory Tests Test 07/19/16 14:30 07/19/16 14:58 Range/Units White Blood Count 10.7 4.3-11.0 10^3/uL Red Blood Count 4.59 4.35-5.85 10^6/uL Hemoglobin 13.3 11.5-16.0 G/DL Hematocrit 40 35-52 % Mean Corpuscular Volume 88 80-99 FL Mean Corpuscular Hemoglobin 29 25-34 PG Mean Corpuscular Hemoglobin Concent 33 32-36 G/DL Red Cell Distribution Width 12.8 10.0-14.5 % Platelet Count 182 130-400 10^3/uL Mean Platelet Volume 11.1 H 7.4-10.4 FL Neutrophils (%) (Auto) 90 H 42-75 % Lymphocytes (%) (Auto) 3 L 12-44 % Monocytes (%) (Auto) 7 0-12 % Eosinophils (%) (Auto) 0 0-10 % Basophils (%) (Auto) 0 0-10 % Neutrophils # (Auto) 9.6 H 1.8-7.8 X 10^3 Lymphocytes # (Auto) 0.4 L 1.0-4.0 X 10^3 Monocytes # (Auto) 0.8 0.0-1.0 X 10^3 Eosinophils # (Auto) 0.0 0.0-0.3 10^3/uL Basophils # (Auto) 0.0 0.0-0.1 10^3/uL Neutrophils % (Manual) 77 % Lymphocytes % (Manual) 4 % Monocytes % (Manual) 5 % Eosinophils % (Manual) 0 % Basophils % (Manual) 0 % Band Neutrophils 14 % Blood Morphology Comment NORMAL Sodium Level 135 135-145 MMOL/L Potassium Level 3.8 3.6-5.0 MMOL/L Chloride Level 100 98-107 MMOL/L Carbon Dioxide Level 26 21-32 MMOL/L Anion Gap 9 5-14 MMOL/L Blood Urea Nitrogen 10 7-18 MG/DL Creatinine 0.79 0.60-1.30 MG/DL Estimat Glomerular Filtration Rate > 60 BUN/Creatinine Ratio 13 Glucose Level 102 70-105 MG/DL Lactic Acid Level 0.88 0.50-2.00 MMOL/L Calcium Level 9.2 8.5-10.1 MG/DL Total Bilirubin 0.7 0.1-1.0 MG/DL Aspartate Amino Transf (AST/SGOT) 53 H 5-34 U/L Alanine Aminotransferase (ALT/SGPT) 58 H 0-55 U/L Alkaline Phosphatase 84 40-136 U/L Total Creatine Kinase 136 29-168 U/L Total Protein 6.7 6.4-8.2 G/DL Albumin 4.0 3.2-4.5 G/DL Urine Color YELLOW Urine Clarity CLEAR Urine pH 7 5-9 Urine Specific [place] 1.005 L 1.016-1.022 Urine Protein NEGATIVE NEGATIVE Urine Glucose (UA) NEGATIVE NEGATIVE Urine Ketones NEGATIVE NEGATIVE Urine Nitrite NEGATIVE NEGATIVE Urine Bilirubin NEGATIVE NEGATIVE Urine Urobilinogen NORMAL NORMAL MG/DL Urine Leukocyte Esterase 1+ H NEGATIVE Urine RBC (Auto) NEGATIVE NEGATIVE Urine RBC NONE /HPF Urine WBC RARE /HPF Urine Squamous Epithelial Cells RARE /HPF Urine Crystals NONE /LPF Urine Bacteria NEGATIVE /HPF Urine Casts NONE /LPF Urine Mucus NEGATIVE /LPF Urine Culture Indicated NO (CONRAD MUÑOZ MD) Micro Results Microbiology 07/19/16 Influenza Types A,B Antigen (YANDY) - Final, Complete (CONRAD MUÑOZ MD) My Orders Orders - CONRAD MUÑOZ MD Fentanyl Injection (Sublimaze Injection (07/19/16 15:25) Ct Abdomen/Pelvis W (07/19/16 15:25) Creatine Kinase (07/19/16 15:25) Influenza A And B Antigens (07/19/16 15:25) Iohexol Injection (Omnipaque 350 Mg/Ml 1 (07/19/16 15:30) Ns (Ivpb) (Sodium Chloride 0.9% Ivpb Bag (07/19/16 15:30) Lorazepam Injection (Ativan Injection) (07/19/16 15:43) Lorazepam Injection (Ativan Injection) (07/19/16 16:00) (CONRAD MUÑOZ MD) Medications Given in ED Current Medications Medications Dose Ordered Sig/Jennifer Route Start Time Stop Time Status Last Admin Dose Admin Lorazepam 0.5 mg ONCE ONCE IVP 07/19/16 16:00 07/19/16 16:01 DC 07/19/16 15:46 0.5 MG Ondansetron HCl 4 mg ONCE ONCE IVP 07/19/16 14:45 07/19/16 14:46 DC 07/19/16 15:01 4 MG Sodium Chloride 1,000 ml @ 0 mls/hr Q0M ONCE IV 07/19/16 14:40 07/19/16 14:42 DC 07/19/16 15:01 1,000 MLS/HR (CONRAD MUÑOZ MD) Vital Signs/I&O Vital Sign - Last 12Hours 07/19/16 13:55 Temp 98.2 Pulse 125 Resp 20 B/P (MAP) 133/78 Pulse Ox 96 O2 Delivery Room Air (CONRAD MUÑOZ MD) Blood Pressure Mean: 96 Progress Note : Progress Note Seen and evaluated. IV, labs, normal saline 1 L bolus, Toradol 30 mg IV and Zofran 4 mg IV. UA ordered. Monitor patient. Patient's pain remains. Fentanyl [address] abdomen and pelvis do to history of cancer and due to increasing pain and cannot straighten her legs without pain increasing to her belly. Influenza screen ordered. Patient did receive Ativan 0.5 mg IV due to anxiety related to CT scan. 1650: All findings reviewed. No significant findings currently. Discharged home with return precautions. Patient verbalize understanding instructions and agreement with plan. will give her a ride home. (CONRAD MUÑOZ MD) Diagnostic Imaging Diagonstic Imaging: CT Plain Films/CT/US/NM/MRI: abdomen, pelvis Comments VIA [facility]. [place], [place] NAME: PETER ZARAGOZA [facility] REC#: [id number] PT STATUS: REG ER : 1965 PHYSICIAN: CONRAD MUÑOZ MD ADMIT DATE: 07/19/16/ER Draft Date of Exam:07/19/16 CT ABDOMEN/PELVIS W PROCEDURE: CT abdomen and pelvis with contrast. TECHNIQUE: Multiple contiguous axial images were obtained through the abdomen and pelvis after administration of intravenous contrast. INDICATION: Abdominal pain with nausea, vomiting, and diarrhea. History of colon cancer. CONTRAST: 100 mL of Omnipaque 350 was administered intravenously. COMPARISON: 12/01/2015. FINDINGS: The lung bases demonstrate no significant abnormality. The liver, gallbladder, spleen, adrenals, and pancreas appear unremarkable. The kidneys have symmetric enhancement and contrast excretion. There is no hydronephrosis. The abdominal aorta is normal in caliber. No ashley-aortic significantly enlarged lymph node is seen. A left lower quadrant colostomy is seen. There is no bowel obstruction. Moderate amounts of fecal material in the right colon are seen. The urinary bladder appears distended with no focal lesion identified. There is nonspecific soft tissue thickening in the presacral region which is minimally more prominent compared to the 12/01/2015 exam. This may relate to scarring from prior treatment. Nonspecific sclerotic foci in the pelvis up to 5 mm are again noted. These are most prominent in the right iliac bone which could be incidental bone islands. IMPRESSION: 1. Presacral soft tissue thickening is probably related to scarring from prior therapy with no definite enhancing mass. 2. Stable subcentimeter sclerotic foci in the pelvis up to 5 mm in the left iliac bone may relate to bone islands. Dictated on workstation # [id number] Dict: 07/19/16 1613 Trans: 07/19/16 1629 [id number] Interpreted by: LATANYA VALENTIN MD Electronically signed by: (CONRAD MUÑOZ MD) Departure Impression Impression: Primary Impression: Diarrhea Qualified Codes: R19.7 - Diarrhea, unspecified Additional Impression: Viral syndrome Disposition: 01 HOME, SELF-CARE Condition: Improved Departure-Patient Inst. Decision time for Depature: 16:59 (CONRAD MUÑOZ MD) Referrals: MICHAEL MACHUCA MD (PCP/Family) Primary Care Physician Patient Instructions: Diarrhea in Adolescents and Adults, Viral Syndrome (DC) Add. Discharge Instructions: All discharge instructions reviewed with patient and/or family. Voiced understanding. Clear liquid diet for 24 hours and then advance as tolerated. Follow-up with your Dr. in a few days for recheck. Return for worse pain, fever, vomiting, weakness, breathing problems or other concerns as needed. You may take Tylenol 1000 mg every 8 hours as needed for pain. You may take ibuprofen 600 mg every 8 hours as needed for pain. Work/School Note: Work Release Form Date Seen in the Emergency Department: Jul 19, 2016 Return to Work: Jul 21, 2016 Restrictions: No Restrictions VONDA KENDALL Jul 19, 2016 15:21 CONRAD MUÑOZ MD Jul 19, 2016 15:32
[2016-07-19] MEDS ORDERED: fentaNYL INJECTION 100 MCG/2 ML AMP IVP STA (15:25)
[2016-07-19] MEDS ORDERED: IOHEXOL 350 MG/ML 100 ML (OMNIPAQUE 350) VIAL IV ONE (15:30)
[2016-07-19] MEDS ORDERED: NS 100 ML (IVPB) BAG IV ONE (15:30)
[2016-07-19 15:42] LABS: SQUAMOUS EPITHELIAL CELL,UR RARE /HPF; WBC,URINE RARE /HPF
[2016-07-19] MEDS ORDERED: LORazepam INJ 2 MG/ML (ATIVAN) VIAL ONE (15:43)
[2016-07-19] MEDS ORDERED: LORazepam INJ 2 MG/ML (ATIVAN) VIAL IVP ONE (16:00)
--- NOTE | 2016-07-19 16:29 | Diagnostic Imaging Report ---
PROCEDURE: CT abdomen and pelvis with contrast. TECHNIQUE: Multiple contiguous axial images were obtained through the abdomen and pelvis after administration of intravenous contrast. INDICATION: Abdominal pain with nausea, vomiting, and diarrhea. History of colon cancer. CONTRAST: 100 mL of Omnipaque 350 was administered intravenously. COMPARISON: 12/01/2015. FINDINGS: The lung bases demonstrate no significant abnormality. The liver, gallbladder, spleen, adrenals, and pancreas appear unremarkable. The kidneys have symmetric enhancement and contrast excretion. There is no hydronephrosis. The abdominal aorta is normal in caliber. No ashley-aortic significantly enlarged lymph node is seen. A left lower quadrant colostomy is seen. There is no bowel obstruction. Moderate amounts of fecal material in the right colon are seen. The urinary bladder appears distended with no focal lesion identified. There is nonspecific soft tissue thickening in the presacral region which is minimally more prominent compared to the 12/01/2015 exam. This may relate to scarring from prior treatment. Nonspecific sclerotic foci in the pelvis up to 5 mm are again noted. These are most prominent in the right iliac bone which could be incidental bone islands. IMPRESSION: 1. Presacral soft tissue thickening is probably related to scarring from prior therapy with no definite enhancing mass. 2. Stable subcentimeter sclerotic foci in the pelvis up to 5 mm in the left iliac bone may relate to bone islands. Dictated by: Dictated on workstation # [id number]
[2016-07-19 17:07] VITALS: BP 106/69
== END 2016-07-19 17:07 | disposition home or self-care (01) ==
LOC: EDUNIT# 13:44 → ER 13:47
DX: B34.9 Viral infection, unspecified (principal); R10.84 Generalized abdominal pain; R19.7 Diarrhea, unspecified; J44.9 Chronic obstructive pulmonary disease, unspecified; Z93.3 Colostomy status; Z85.038 Personal history of other malignant neoplasm of large intestine
CPT/HCPCS: 36415; 74177; 80053; 81000; 82550; 83605; 85007; 85027; 87804; 96361; 96374; 96375

== ENCOUNTER 2016-10-19 16:58 | Outpatient (RCR) | payer OTHER ==
[2016-09-07 14:26] LABS: BASOPHILS % (AUTO) 1 % (0-10); EOSINOPHILS # (AUTO) 0.1 10^3/uL (0.0-0.3); EOSINOPHILS % (AUTO) 1 % (0-10); LYMPHOCYTES # (AUTO) 0.6 X 10^3 (1.0-4.0); LYMPHOCYTES % (AUTO) 10 % (12-44); MEAN CORPUSCULAR HEMOGLOBIN 29 PG (25-34); MEAN CORPUSCULAR HGB CONC 33 G/DL (32-36); MEAN CORPUSCULAR VOLUME 88 FL (80-99); MEAN PLATELET VOLUME 10.6 FL (7.4-10.4); MONOCYTES # (AUTO) 0.6 X 10^3 (0.0-1.0); MONOCYTES % (AUTO) 9 % (0-12); NEUTROPHILS # (AUTO) 4.8 X 10^3 (1.8-7.8); NEUTROPHILS % (AUTO) 79 % (42-75); PLATELET COUNT 246 10^3/uL (130-400); RED BLOOD COUNT 4.38 10^6/uL (4.35-5.85); RED CELL DISTRIBUTION WIDTH 13.7 % (10.0-14.5)
[2016-09-07 15:21] LABS: ALANINE AMINOTRANSFERASE 28 U/L (0-55); ANION GAP 10 MMOL/L (5-14); ASPARTATE AMINO TRANSFERASE 20 U/L (5-34); BILIRUBIN,TOTAL 0.4 MG/DL (0.1-1.0); BLOOD UREA NITROGEN 14 MG/DL (7-18); BUN/CREATININE RATIO 19; CALCIUM 9.3 MG/DL (8.5-10.1); CARBON DIOXIDE 27 MMOL/L (21-32); CHLORIDE 105 MMOL/L (98-107); CREATININE SERUM 0.75 MG/DL (0.60-1.30); GFR ESTIMATED > 60; GLUCOSE 93 MG/DL (70-105); POTASSIUM 3.8 MMOL/L (3.6-5.0); SODIUM 142 MMOL/L (135-145); TOTAL PROTEIN 6.7 G/DL (6.4-8.2)
[2016-09-07 15:43] LABS: THYROID STIMULATING HORMONE 0.39 UIU/ML (0.35-4.94)
== END 2016-11-17 | disposition home or self-care (01) ==
LOC: ONC 16:58
PROVIDERS: ATTEND Internal Medicine Hematology & Oncology
DX: C20 Malignant neoplasm of rectum (principal); E03.9 Hypothyroidism, unspecified; J44.9 Chronic obstructive pulmonary disease, unspecified; Z93.3 Colostomy status; Z79.899 Other long term (current) drug therapy; Z45.2 Encounter for adjustment and management of vascular access device
CPT/HCPCS: 36591; 80053; 82378; 84443; 85025; 96523; 99213

== ENCOUNTER 2016-11-30 14:05 | Outpatient (RCR) | payer OTHER ==
[2016-11-30 14:28] LABS: BASOPHILS % (AUTO) 1 % (0-10); EOSINOPHILS # (AUTO) 0.1 10^3/uL (0.0-0.3); EOSINOPHILS % (AUTO) 1 % (0-10); LYMPHOCYTES # (AUTO) 0.8 X 10^3 (1.0-4.0); LYMPHOCYTES % (AUTO) 13 % (12-44); MEAN CORPUSCULAR HEMOGLOBIN 29 PG (25-34); MEAN CORPUSCULAR HGB CONC 33 G/DL (32-36); MEAN CORPUSCULAR VOLUME 88 FL (80-99); MEAN PLATELET VOLUME 11.1 FL (7.4-10.4); MONOCYTES # (AUTO) 0.7 X 10^3 (0.0-1.0); MONOCYTES % (AUTO) 11 % (0-12); NEUTROPHILS # (AUTO) 4.4 X 10^3 (1.8-7.8); NEUTROPHILS % (AUTO) 74 % (42-75); PLATELET COUNT 261 10^3/uL (130-400); RED BLOOD COUNT 4.41 10^6/uL (4.35-5.85); RED CELL DISTRIBUTION WIDTH 13.8 % (10.0-14.5)
[2016-11-30 15:33] LABS: ALANINE AMINOTRANSFERASE 52 U/L (0-55); ANION GAP 8 MMOL/L (5-14); ASPARTATE AMINO TRANSFERASE 46 U/L (5-34); BILIRUBIN,TOTAL 0.2 MG/DL (0.1-1.0); BLOOD UREA NITROGEN 16 MG/DL (7-18); BUN/CREATININE RATIO 22; CALCIUM 8.8 MG/DL (8.5-10.1); CARBON DIOXIDE 27 MMOL/L (21-32); CHLORIDE 106 MMOL/L (98-107); CREATININE SERUM 0.72 MG/DL (0.60-1.30); GFR ESTIMATED > 60; GLUCOSE 88 MG/DL (70-105); POTASSIUM 3.7 MMOL/L (3.6-5.0); SODIUM 141 MMOL/L (135-145); TOTAL PROTEIN 6.5 GM/DL (6.4-8.2)
== END 2017-01-08 | disposition home or self-care (01) ==
LOC: ONC 14:05
PROVIDERS: ATTEND Internal Medicine Hematology & Oncology
DX: J44.9 Chronic obstructive pulmonary disease, unspecified; Z93.3 Colostomy status; C20 Malignant neoplasm of rectum; E03.9 Hypothyroidism, unspecified; Z79.899 Other long term (current) drug therapy
CPT/HCPCS: 36591; 80053; 85025

== ENCOUNTER 2017-04-12 15:45 | Outpatient (RCR) | payer OTHER | END 2017-04-25 | disposition home or self-care (01) | LOC: ONC 15:45 | PROVIDERS: ATTEND Internal Medicine Hematology & Oncology | DX: C20 Malignant neoplasm of rectum (principal); E03.9 Hypothyroidism, unspecified; J44.9 Chronic obstructive pulmonary disease, unspecified; Z93.3 Colostomy status; Z79.899 Other long term (current) drug therapy; Z45.2 Encounter for adjustment and management of vascular access device | CPT/HCPCS: 36591; 96523 ==

== ENCOUNTER 2017-05-22 09:27 | Inpatient (IN) | payer OTHER ==
[~2017-05-22] VITALS: Ht 157.5 cm; Wt 52.3 kg
[2017-05-22] MEDS ORDERED: OSEL75CA15 PO (10:34)
[2017-05-22] MEDS ORDERED: LACTATED RINGERS 1,000 ML IV ONE (10:39)
[2017-05-22] MEDS ORDERED: RT-ALBUTEROL SULF 2.5 MG/3 ML PRE-MIX VIAL INH STA (10:39)
[2017-05-22] MEDS ORDERED: RT-ALBUTEROL/IPRATROPIUM 3 ML (DUONEB) VIAL ONE (10:40)
[2017-05-22] MEDS ORDERED: RT-ALBUTEROL/IPRATROPIUM 3 ML (DUONEB) VIAL INH ONE (10:45)
[2017-05-22 10:51] LABS: BASOPHILS % (AUTO) 1 % (0-10); EOSINOPHILS % (AUTO) 1 % (0-10); HEMATOCRIT 42 % (35-52); LYMPHOCYTES # (AUTO) 0.4 X 10^3 (1.0-4.0); LYMPHOCYTES % (AUTO) 6 % (12-44); MEAN CORPUSCULAR HEMOGLOBIN 30 PG (25-34); MEAN CORPUSCULAR HGB CONC 34 G/DL (32-36); MEAN CORPUSCULAR VOLUME 91 FL (80-99); MEAN PLATELET VOLUME 11.3 FL (7.4-10.4); MONOCYTES # (AUTO) 0.8 X 10^3 (0.0-1.0); MONOCYTES % (AUTO) 13 % (0-12); NEUTROPHILS # (AUTO) 5.3 X 10^3 (1.8-7.8); NEUTROPHILS % (AUTO) 80 % (42-75); PLATELET COUNT 223 10^3/uL (130-400); RED BLOOD COUNT 4.61 10^6/uL (4.35-5.85); RED CELL DISTRIBUTION WIDTH 14.4 % (10.0-14.5); WHITE BLOOD COUNT 6.6 10^3/uL (4.3-11.0)
--- NOTE | 2017-05-22 10:51 | ED Respiratory ---
General Chief Complaint: Respiratory Problems Stated Complaint: CONGESTION,SOA Nursing Triage Note: AMB TO ROOM REPORTS HAS BEEN CONGESTED FOR 3 DAYS WAS SEEN BY FAMILY ON TUESDAY STRTED ON TAMIFLU DUE SON WAS POS FOR. HX OF COPD, [id number] [place] DONE [employer] Source: patient Exam Limitations: no limitations History of Present Illness Date Seen by Provider: May 22, 2017 Time Seen by Provider: 10:35 Initial Comments Patient present to ER by private conveyance with chief complaint of the last 3 or 4 days of aggressively worsening shortness of breath, cough productive of sputum and a history of COPD. She does not have a history of coronary disease. She does have a distant history of smoking about 10 years ago she quit. She says she's been having some chills and sweats but no documented fever. She says her son was recently diagnosed with influenza so she was put on Tamiflu prophylactically 4 days ago. She's been tolerating the Tamiflu okay. She feels very short of breath does not use oxygen at home but she knows when she gets up to go from her bedroom to the living room to get a breathing treatment of DuoNeb she gets short of breath and she has checked her oxygen sats on her home meter and they've been as low as 88%. She has been using the DuoNeb treatments every 4 hours [id number]. She also uses her Spiriva and sent to [facility] appropriately. She says it's been a couple months since she was on antibiotics and steroids again for a COPD exacerbation. She's not having any chest pain, numbness, nausea. Allergies and Home Medications Allergies Coded Allergies: levofloxacin (Verified Allergy, Unknown, NAUSEA/VOMITING, NUMBNESS OF FACE AND ARMS, 01/17/08) moxifloxacin (Verified Allergy, Unknown, N/V, 01/17/08) Home Medications Albuterol Sulfate 2.5 Mg/3 Ml Nebu, 2.5 MG INH RTQ2H PRN for SHORTNESS OF BREATH , #0 Prescribed by: SAUNDRA TAYLOR on 04/23/13 1238 Alprazolam 1 Mg Tab, 1 MG PO TID, #0 Prescribed by: SAUNDRA Melvin COLTRIN on 04/23/13 1238 Budesonide/Formoterol Fumarate 10.2 Gm Hfa.aer.ad, 2 PUFF IH BID, (Reported) Ipratropium/Albuterol Sulfate 3 Ml Ampul.neb, 3 ML IH Q6H PRN for SHORTNESS OF BREATH, #20 Use every 6 hours scheduled for 2 days, then as needed. Prescribed by: JANY FLORES on 05/31/162011 Levothyroxine Sodium 50 Mcg Tablet, 100 MCG PO DAILY, (Reported) Oseltamivir Phosphate 75 Mg Capsule, (Reported) Constitutional: chills, diaphoresis, malaise EENTM: No ear discharge, No hearing loss Respiratory: cough, phlegm, short of breath, wheezing Cardiovascular: No chest pain, No Hx of Intervention, No palpitations, No syncope Gastrointestinal: No abdominal pain, No constipation, No diarrhea, No nausea Genitourinary: No discharge, No dysuria Past Mykguzp-Usoiqj-Dlqzbu Hx Patient Social History Alcohol Use: Denies Use Recreational Drug Use: No Smoking Status: Former Smoker Former Smoker, Quit: Apr 11, 2006 2nd Hand Smoke Exposure: No Recent Foreign Travel: No Contact w/Someone Who Travel: No Recent Infectious Disease Expo: No Recent Hopitalizations: No Immunizations Up To Date Date of Pneumonia Vaccine: Apr 17, 2011 Date of Influenza Vaccine: Apr 19, 2013 Surgeries History of Surgeries: Yes ( ENDOMETRIAL ABLATION, COLOSTOMY) Surgeries: Abdominal Respiratory History of Respiratory Disorde: Yes Respiratory Disorders: Pneumonia, Chronic Bronchitis, COPD Cardiovascular History of Cardiac Disorders: Yes (MVP) Neurological History of Neurological Disord: Yes Gastrointestinal History of Gastrointestinal Di: Yes (RECTAL CA) Gastrointestinal Disorders: Gastroesophageal Reflux Musculoskeletal History of Musculoskeletal Dis: No Endocrine History of Endocrine Disorders: Yes Endocrine Disorders: Hypothyroidsim Cancer History of Cancer: Yes Cancer: Rectal Psychosocial History of Psychiatric Problem: Yes Behavioral Health Disorders: Anxiety Integumentary History of Skin or Integumenta: No Blood Transfusions History of Blood Disorders: No Family Medical History Significant Family History: No Pertinent Family Hx Physical Exam Vital Signs Vital Signs - First Documented 05/22/17 05/22/17 09:49 10:47 Temp 100.0 Pulse 126 Resp 20 B/P (MAP) 121/92 (102) Pulse Ox 94 O2 Delivery Room Air O2 Flow Rate 2.00 Capillary Refill : Less Than 3 Seconds General Appearance: WD/WN, mild distress Eyes: Bilateral Eye Normal Inspection, Bilateral Eye PERRL, Bilateral Eye EOMI HEENT: PERRL/EOMI, normal ENT inspection, TMs normal, pharynx normal Neck: non-tender (oral mucosa is mildly dry), supple, normal inspection Respiratory: chest non-tender, respiratory distress (mild), decreased breath sounds, accessory muscle use (mild), wheezing Cardiovascular: normal peripheral pulses, regular rate, rhythm, no edema Gastrointestinal: normal bowel sounds, non tender, soft Neurologic/Psychiatric: alert, oriented x 3 Skin: normal color, warm/dry Focused Exam Evaluation Lactate Level Laboratory Tests 05/22/17 10:52: Lactic Acid Level 0.80 Lactic Acid Level Laboratory Tests Test 05/22/17 10:52 Lactic Acid Level 0.80 MMOL/L (0.50-2.00) Progress/Results/Core Measures Suspected Sepsis Recent Fever Within 48 Hours: No Infection Criteria Present: Suspected New Infection New/Unexplained Altered Menta: No Sepsis Screen: No Definite Risk Sepsis Diagnosis: SIRS Temperature:100.0 Pulse: 126 Respiratory Rate: 20 Laboratory Tests 05/22/17 10:22: White Blood Count 6.6 Blood Pressure 121 /92 Mean: 102 Laboratory Tests 05/22/17 10:52: Lactic Acid Level 0.80 Laboratory Tests 05/22/17 10:22: Creatinine 0.78, Platelet Count 223, Total Bilirubin 0.4 Results/Orders Lab Results Laboratory Tests Test 05/22/17 10:22 05/22/17 10:52 Range/Units White Blood Count 6.6 4.3-11.0 10^3/uL Red Blood Count 4.61 4.35-5.85 10^6/uL Hemoglobin 14.0 11.5-16.0 G/DL Hematocrit 42 35-52 % Mean Corpuscular Volume 91 80-99 FL Mean Corpuscular Hemoglobin 30 25-34 PG Mean Corpuscular Hemoglobin Concent 34 32-36 G/DL Red Cell Distribution Width 14.4 10.0-14.5 % Platelet Count 223 130-400 10^3/uL Mean Platelet Volume 11.3 H 7.4-10.4 FL Neutrophils (%) (Auto) 80 H 42-75 % Lymphocytes (%) (Auto) 6 L 12-44 % Monocytes (%) (Auto) 13 H 0-12 % Eosinophils (%) (Auto) 1 0-10 % Basophils (%) (Auto) 1 0-10 % Neutrophils # (Auto) 5.3 1.8-7.8 X 10^3 Lymphocytes # (Auto) 0.4 L 1.0-4.0 X 10^3 Monocytes # (Auto) 0.8 0.0-1.0 X 10^3 Eosinophils # (Auto) 0.0 0.0-0.3 10^3/uL Basophils # (Auto) 0.0 0.0-0.1 10^3/uL Neutrophils % (Manual) 82 % Lymphocytes % (Manual) 5 % Monocytes % (Manual) 10 % Eosinophils % (Manual) 0 % Basophils % (Manual) 0 % Band Neutrophils 3 % Blood Morphology Comment NORMAL Sodium Level 139 135-145 MMOL/L Potassium Level 4.0 3.6-5.0 MMOL/L Chloride Level 101 98-107 MMOL/L Carbon Dioxide Level 24 21-32 MMOL/L Anion Gap 14 5-14 MMOL/L Blood Urea Nitrogen 10 7-18 MG/DL Creatinine 0.78 0.60-1.30 MG/DL Estimat Glomerular Filtration Rate > 60 BUN/Creatinine Ratio 13 Glucose Level 104 70-105 MG/DL Calcium Level 9.4 8.5-10.1 MG/DL Total Bilirubin 0.4 0.1-1.0 MG/DL Aspartate Amino Transf (AST/SGOT) 19 5-34 U/L Alanine Aminotransferase (ALT/SGPT) 25 0-55 U/L Alkaline Phosphatase 105 40-136 U/L C-Reactive Protein High Sensitivity 2.70 H 0.00-0.50 MG/DL Total Protein 7.6 6.4-8.2 GM/DL Albumin 4.3 3.2-4.5 GM/DL Lactic Acid Level 0.80 0.50-2.00 MMOL/L Micro Results Microbiology 05/22/17 Influenza Types A,B Antigen (YANDY) - Final, Complete My Orders Orders - CHANEL WILLIAMSON Albuterol/Ipra Inhalation Soln (Duoneb I (05/22/17 10:40) Cbc With Automated Diff (05/22/17 10:39) Comprehensive Metabolic Panel (05/22/17 10:39) Hs C Reactive Protein (05/22/17 10:39) Blood Culture (05/22/17 10:39) Influenza A And B Antigens (05/22/17 10:39) Sputum Culture (05/22/17 10:39) Chest Pa/Lat (2 View) (05/22/17 10:39) Albuterol Pre-Mix Nebs (Rt) (Proventil (05/22/17 10:39) Albuterol/Ipra Inhalation Soln (Duoneb I (05/22/17 10:45) Saline Lock/Iv-Start (05/22/17 10:39) Lactated Ringers (Lr 1000 Ml Iv Solution (05/22/17 10:39) Svn Sm Volume Nebulizer Rt-Rfs (05/22/17 10:39) Lactic Acid Analyzer (05/22/17 10:39) Manual Differential (05/22/17 10:22) Methylprednisolone Sod Succ (Solu-Medrol (05/22/17 13:15) Azithromycin Injection (Zithromax Inject (05/22/17 13:15) Medications Given in ED Current Medications Medications Dose Ordered Sig/Jennifer Route Start Time Stop Time Status Last Admin Dose Admin Albuterol/ Ipratropium 3 ml STK-MED ONCE .ROUTE 05/22/17 10:40 05/22/17 10:42 DC 05/22/17 10:44 3 ML Lactated Ringer's 1,000 ml @ 0 mls/hr Q0M ONCE IV 05/22/17 10:39 05/22/17 10:44 DC 05/22/17 11:00 1,000 MLS/HR Vital Signs/I&O Vital Sign - Last 12Hours 05/22/17 05/22/17 05/22/17 09:49 10:47 12:21 Temp 100.0 Pulse 126 116 Resp 20 18 B/P (MAP) 121/92 (102) 107/69 (82) Pulse Ox 94 95 94 O2 Delivery Room Air Nasal Cannula O2 Flow Rate 2.00 Capillary Refill : Less Than 3 Seconds Blood Pressure Mean: 102 Progress Note : Time: 10:50 Progress Note COPD exacerbation with possible pneumonia versus influenza. Diagnostic Imaging Diagonstic Imaging: Xray Plain Films/CT/US/NM/MRI: chest (2v) Comments VIA [facility] [address] [place], [place] NAME: MILAPETER Jocy JOYCE REC#: [id number] PT STATUS: REG ER : 1965 PHYSICIAN: CHANEL WILLIAMSON MD ADMIT DATE: 05/22/17/ER Draft Date of Exam:05/22/17 CHEST PA/LAT (2 VIEW) EXAM: CHEST PA/LAT (2 VIEW) INDICATION: Chest radiographs 05/22/2017. COMPARISON: Chest radiograph 05/31/2016. FINDINGS: Normal heart size and pulmonary vascularity. Hyperinflation. No dense consolidation. No pleural effusion or pneumothorax. Left subclavian CVC tip mid SVC. No acute osseous findings. IMPRESSION: COPD. No acute cardiopulmonary findings. Dictated on workstation # [id number] Dict: 05/22/17 1146 Trans: 05/22/17 1154 [facility] [id number] Interpreted by: REBECA SILVERIO MD Electronically signed by: Reviewed: Reviewed by Me Departure Communication (Admissions) Time/Spoke to Admitting Phy: 13:09 Communication Discussed case with Dr. Paniagua and she is willing to see the patient. Impression Impression: Primary Impression: COPD exacerbation Additional Impression: Hypoxia Disposition: ADMITTED INPATIENT Condition: Improved Admissions Decision to Admit Reason: Admit from ER (General) Decision to Admit/Date: May 22, 2017 Time/Decision to Admit Time: 13:18 Departure-Patient Inst. Referrals: MICHAEL MACHUCA MD (PCP/Family) Primary Care Physician Copy Copies To 1: MICHAEL MACHUCA MD, TITUS J May 22, 2017 10:51
[2017-05-22 11:06] LABS: ALANINE AMINOTRANSFERASE 25 U/L (0-55); ALBUMIN 4.3 GM/DL (3.2-4.5); ALKALINE PHOSPHATASE 105 U/L (40-136); BILIRUBIN,TOTAL 0.4 MG/DL (0.1-1.0); BUN/CREATININE RATIO 13; CALCIUM 9.4 MG/DL (8.5-10.1); CARBON DIOXIDE 24 MMOL/L (21-32); CHLORIDE 101 MMOL/L (98-107); CREATININE SERUM 0.78 MG/DL (0.60-1.30); GFR ESTIMATED > 60; GLUCOSE 104 MG/DL (70-105); SODIUM 139 MMOL/L (135-145); TOTAL PROTEIN 7.6 GM/DL (6.4-8.2)
[2017-05-22 11:23] LABS: BAND NEUTROPHILS 3 %; BASOPHILS % (MANUAL) 0 %; EOSINOPHILS % (MANUAL) 0 %; LYMPHOCYTES % (MANUAL) 5 %; MONOCYTES % (MANUAL) 10 %; NEUTROPHILS % (MANUAL) 82 %; RBC MORPH NORMAL
--- NOTE | 2017-05-22 11:54 | Diagnostic Imaging Report ---
EXAM: CHEST PA/LAT (2 VIEW) INDICATION: Chest radiographs 05/22/2017. COMPARISON: Chest radiograph 05/31/2016. FINDINGS: Normal heart size and pulmonary vascularity. Hyperinflation. No dense consolidation. No pleural effusion or pneumothorax. Left subclavian CVC tip mid SVC. No acute osseous findings. IMPRESSION: COPD. No acute cardiopulmonary findings. Dictated by: Dictated on workstation # [id number]
[2017-05-22 12:21] VITALS: BP 107/69
[2017-05-22] MEDS ORDERED: methylPREDNISolone 125 MG (Solu-MEDROL) VIAL IVP ONE (13:15)
[2017-05-22] MEDS ORDERED: AZITHROMYCIN INJECTION 500 MG in NS (IVPB) 250 ML IV ONE (13:15)
[2017-05-22 14:30] VITALS: BP 118/76
[2017-05-22] MEDS ORDERED: CATHETER FLUSH 10 ML SYR IV PRN (15:00)
[2017-05-22] MEDS ORDERED: ASPI-992 PO (15:09)
[2017-05-22] MEDS ORDERED: ALPR1TAB7 PO (15:09)
[2017-05-22] MEDS ORDERED: LEVO100T7 PO (15:09)
[2017-05-22] MEDS ORDERED: CODE118S2 PO (15:09)
[2017-05-22] MEDS ORDERED: BUDE10.2 IH (15:09)
[2017-05-22] MEDS ORDERED: ROFL500T4 PO (15:09)
[2017-05-22] MEDS ORDERED: IPRA3AMP IH (15:09)
[2017-05-22] MEDS: ACETAMINOPHEN 500 MG TAB (TYLENOL) PO PRN (15:38)
[2017-05-22 16:05] VITALS: BP 114/78
[2017-05-22] MEDS ORDERED: RT-ALBUTEROL SULF 2.5 MG/3 ML PRE-MIX VIAL INH SCH (17:30)
[2017-05-22] MEDS ORDERED: RT-ALBUTEROL SULF 2.5 MG/3 ML PRE-MIX VIAL ONE (18:33)
[2017-05-22 19:45] VITALS: BP 111/71
[2017-05-22] MEDS: RT-ALBUTEROL/IPRATROPIUM 3 ML (DUONEB) VIAL INH SCH ×3 (20:30→23:55)
[2017-05-22] MEDS: ALPRAZolam 1 MG (XANAX) TAB PO SCH (21:35)
[2017-05-22] MEDS: methylPREDNISolone 125 MG (Solu-MEDROL) VIAL IV SCH (21:36)
[2017-05-22] MEDS: CATHETER FLUSH 10 ML SYR IV SCH (21:42)
[2017-05-23] VITALS (7 sets, daily range): BP systolic 111–133; BP diastolic 65–86
[2017-05-23] MEDS: RT-ALBUTEROL/IPRATROPIUM 3 ML (DUONEB) VIAL INH SCH ×6 (01:35→21:20)
[2017-05-23] MEDS: ACETAMINOPHEN 500 MG TAB (TYLENOL) PO PRN (04:10)
[2017-05-23] MEDS: LEVOTHYROXINE 50 MCG (LEVOTHROID) TAB PO SCH (05:54)
[2017-05-23] MEDS: methylPREDNISolone 125 MG (Solu-MEDROL) VIAL IV SCH ×3 (05:54→21:04)
[2017-05-23] MEDS: CATHETER FLUSH 10 ML SYR IV SCH ×3 (05:54→21:04)
[2017-05-23 06:42] LABS: BASOPHILS % (AUTO) 0 % (0-10); EOSINOPHILS % (AUTO) 0 % (0-10); HEMATOCRIT 39 % (35-52); HEMOGLOBIN 13.2 G/DL (11.5-16.0); LYMPHOCYTES # (AUTO) 0.2 X 10^3 (1.0-4.0); LYMPHOCYTES % (AUTO) 2 % (12-44); MEAN CORPUSCULAR HEMOGLOBIN 30 PG (25-34); MEAN CORPUSCULAR HGB CONC 34 G/DL (32-36); MEAN CORPUSCULAR VOLUME 91 FL (80-99); MEAN PLATELET VOLUME 11.6 FL (7.4-10.4); MONOCYTES # (AUTO) 0.3 X 10^3 (0.0-1.0); MONOCYTES % (AUTO) 4 % (0-12); NEUTROPHILS # (AUTO) 6.6 X 10^3 (1.8-7.8); NEUTROPHILS % (AUTO) 94 % (42-75); PLATELET COUNT 223 10^3/uL (130-400); RED BLOOD COUNT 4.34 10^6/uL (4.35-5.85); RED CELL DISTRIBUTION WIDTH 14.2 % (10.0-14.5); WHITE BLOOD COUNT 7.1 10^3/uL (4.3-11.0)
[2017-05-23 06:55] LABS: ALANINE AMINOTRANSFERASE 31 U/L (0-55); ALKALINE PHOSPHATASE 97 U/L (40-136); BILIRUBIN,TOTAL 0.3 MG/DL (0.1-1.0); BUN/CREATININE RATIO 17; CALCIUM 9.6 MG/DL (8.5-10.1); CARBON DIOXIDE 25 MMOL/L (21-32); CHLORIDE 100 MMOL/L (98-107); CREATININE SERUM 0.71 MG/DL (0.60-1.30); GFR ESTIMATED > 60; GLUCOSE 153 MG/DL (70-105); POTASSIUM 3.1 MMOL/L (3.6-5.0); SODIUM 139 MMOL/L (135-145)
[2017-05-23] MEDS: ALPRAZolam 1 MG (XANAX) TAB PO SCH ×3 (08:06→21:04)
[2017-05-23] MEDS: AZITHROMYCIN 250 MG/NS 250 ML IVPB IV SCH ×2 (08:14)
[2017-05-23] MEDS ORDERED: POTASSIUM CL 10MEQ/50ML IVPB 150 ML IV ONE (09:22)
[2017-05-23] MEDS ORDERED: NS IV 500 ML 0 ML ONE (09:23)
[2017-05-23] MEDS ORDERED: predniSONE 10 MG TAB ONE (09:23)
[2017-05-23] MEDS: ONDANSETRON 4 MG/2 ML (SDV) Z0FRAN IV PRN (09:53)
[2017-05-23] MEDS: NS IV 500 ML 500 ML IV SCH ×2 (09:54→20:56)
--- NOTE | 2017-05-23 14:59 | History & Physical-Hospitalist ---
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 She reports that over the last 2 or 3 days should become progressively more short of breath. She ultimately came to the emergency room yesterday and was admitted. She reports she is been unaware of fever. She had been started on Tamiflu as her son was diagnosed as having the flu. She noted increased dyspnea on exertion. She reports that today she is modestly improved but still quite short of breath. Date Seen 05/23/17 Time Seen by Provider: 15:50 Attending Physician Kaylan Reardon MD PCP Bashir Wright MD Referring Physician Date of Admission May 22, 2017 at 14:01 Home Medications & Allergies Home Medications Reviewed patient Home Medication Reconciliation Form Allergies Allergies Coded Allergies levofloxacin (Verified Allergy, Unknown, NAUSEA/VOMITING, NUMBNESS OF FACE AND ARMS, 05/24/17) moxifloxacin (Verified Allergy, Unknown, N/V, 01/17/08) Past Hympwic-Wllsav-Hnngvg Hx Patient Social History Alcohol Use: Occasionally Uses Number of Drinks Today: 0 Alcohol Beverage of Choice: Other Recreational Drug Use: No Smoking Status: Former Smoker Former Smoker, Quit: May 22, 2006 Type Used: Cigarettes 2nd Hand Smoke Exposure: No Physical Abuse Screen: No Sexual Abuse: No Recent Foreign Travel: No Contact w/other who traveled: No Recent Hopitalizations: No Recent Infectious Disease Expo: No Immunizations Up To Date Date of Pneumonia Vaccine: Apr 17, 2011 Date of Influenza Vaccine: Feb 09, 2017 Seasonal Allergies Seasonal Allergies: No Surgeries Yes ( ENDOMETRIAL ABLATION, COLOSTOMY) Abdominal Respiratory Yes Currently Using CPAP: No Currently Using BIPAP: No Cardiovascular Yes Neurological Yes Genitourinary No Gastrointestinal Yes (RECTAL CA) Gastroesophageal Reflux, Chronic Diarrhea Musculoskeletal No Endocrine History of Endocrine Disorders: Yes Endocrine Disorders: Hypothyroidsim Are Your Blood Sugars Over 250: No HEENT History of HEENT Disorders: No Cancer Yes Rectal Did You Recieve Any Treatments: Yes Type of Treatment: Chemotherapy, Radiation Psychosocial History of Psychiatric Problem: Yes Behavioral Health Disorders: Anxiety Integumentary History of Skin or Integumenta: No Blood Transfusions History of Blood Disorders: No Family Medical History Significant Family History: No Pertinent Family Hx Family Hx: Review of Systems Constitutional: see HPI Respiratory: see HPI, cough, phlegm (some but clear), short of breath Gastrointestinal: no symptoms reported Genitourinary: no symptoms reported Musculoskeletal: other (subcostal pain which seems to be secondary to coughing) Skin: no symptoms reported Psychiatric/Neurological: No Symptoms Reported Physical Exam Physical Exam Vital Signs Vital Signs - First Documented 05/22/17 05/22/17 05/22/17 09:49 09:50 17:18 Temp 100.0 Pulse 126 Resp 20 B/P (MAP) 121/92 (102) Pulse Ox 94 O2 Delivery Room Air O2 Flow Rate 2.00 FiO2 28 Capillary Refill : Less Than 3 Seconds General Appearance: Moderate Distress Eyes: Bilateral Eye Normal Inspection Neck: Normal Inspection Respiratory: Other (breath sounds are distant and tight) Cardiovascular: Regular Rate, Rhythm, No Edema, No Gallop, No JVD, No Murmur, Normal Peripheral Pulses Gastrointestinal: Normal Bowel Sounds, No Organomegaly, No Pulsatile Mass, Non Tender, Soft Back: Normal Inspection, No CVA Tenderness, No Vertebral Tenderness Extremity: Normal Capillary Refill, Normal Inspection, Normal Range of Motion, Non Tender, No Calf Tenderness, No Pedal Edema Neurologic/Psychiatric: Alert, Oriented x3, No Motor/Sensory Deficits, Normal Mood/Affect Skin: Normal Color, Warm/Dry Lymphatic: No Adenopathy Results Results/Procedures Lab Laboratory Tests 05/26/17 03:50 05/27/17 03:50 Assessment/Plan Admission Diagnosis COPD in exacerbation. 2.history of rectal cancer with left upper quadrant colostomy Assessment and Plan 1.IV Solu-Medrol. 2.pulmonary toilet. Clinical Quality Measures DVT/VTE Risk/Contraindication: Risk Factor Score Per Nursin RFS Level Per Nursing on Admit: 3=High IRENE ESTEVEZ MD May 23, 2017 14:59
[2017-05-23] MEDS ORDERED: ACETAMINOPHEN 325 MG TABLET/CAPLET (TYLENOL) PO PRN (15:15)
[2017-05-23] MEDS ORDERED: ASPIRIN E.C. 325 MG (ECOTRIN) TABLET PO PRN (15:15)
[2017-05-23] MEDS ORDERED: ASPIRIN E.C. 81 MG (ECOTRIN) TAB PO PRN (15:15)
[2017-05-23] MEDS: PROMETHAZINE/ CODEINE SYRUP 5 ML UDC PO PRN ×2 (17:43→21:47)
[2017-05-24] MEDS: PROMETHAZINE/ CODEINE SYRUP 5 ML UDC PO PRN (03:18)
[2017-05-24] MEDS: RT-ALBUTEROL/IPRATROPIUM 3 ML (DUONEB) VIAL INH SCH ×8 (03:42→22:19)
[2017-05-24 04:00] VITALS: BP 130/84
[2017-05-24] MEDS: NS IV 500 ML 500 ML IV SCH ×2 (05:09→15:43)
[2017-05-24] MEDS: CATHETER FLUSH 10 ML SYR IV SCH ×3 (05:09→21:14)
[2017-05-24] MEDS: methylPREDNISolone 125 MG (Solu-MEDROL) VIAL IV SCH ×3 (05:42→21:14)
[2017-05-24] MEDS: LEVOTHYROXINE 50 MCG (LEVOTHROID) TAB PO SCH (05:42)
[2017-05-24] MEDS: ALPRAZolam 1 MG (XANAX) TAB PO SCH ×3 (08:57→21:14)
[2017-05-24] MEDS: AZITHROMYCIN 250 MG/NS 250 ML IVPB IV SCH ×2 (08:57)
[2017-05-24 08:58] VITALS: BP 124/74
[2017-05-24] MEDS ORDERED: LEVOTHYROXINE 100 MCG (LEVOTHROID) TAB PO SCH (09:00)
[2017-05-24 12:00] VITALS: BP 125/82
[2017-05-24] MEDS ORDERED: RT-ALBUTEROL/IPRATROPIUM 3 ML (DUONEB) VIAL INH PRN (12:30)
--- NOTE | 2017-05-24 13:06 | Pulmonary Consultation ---
History of Present Illness History of Present Illness Date of Consultation 05/24/17 13:01 Time Seen by Provider: 13:01 Date of Admission History of Present Illness 51yo presented to ED secondary to worsening SOB over the last 2-3 days. Denies fever. Her son was recently diagnosed with flu and she was also treated with tamiflu secondary to being in close contact with her son. SOB is much worse with exertion. she has had similar episodes in the past. I am consulted for pulmonary management. Allergies and Home Medications Allergies Coded Allergies: levofloxacin (Verified Allergy, Unknown, NAUSEA/VOMITING, NUMBNESS OF FACE AND ARMS, 05/24/17) moxifloxacin (Verified Allergy, Unknown, N/V, 01/17/08) Home Medications Alprazolam 1 Mg Tablet, 1 MG PO TID, (Reported) Aspirin/Acetaminophen/Caffeine 1 Each Tablet, 1 TAB PO BID PRN for HEADACHE, ( Reported) Budesonide/Formoterol Fumarate 10.2 Gm Hfa.aer.ad, 2 PUFF IH BID, (Reported) Cefepime HCl/D5w 2 Gm/50 Ml Piggyback, 2 GM IV BID for 7 Days Prescribed by: ELO RODRÍGUEZ on 05/27/17 115 Ciprofloxacin HCl 500 Mg Tablet, 500 MG PO BID for 7 Days Prescribed by: ELO RODRÍGUEZ on 05/27/17 115 Fluconazole 100 Mg Tablet, 100 MG PO DAILY for 7 Days Prescribed by: ELO RODRÍGUEZ on 05/27/17 115 Heparin Sodium,Porcine 5,000 Unit/1 Ml Vial, 5,000 UNITS SC Q8HR for 7 Days Prescribed by: ELO RODRÍGUEZ on 05/27/17 115 Ipratropium/Albuterol Sulfate 3 Ml Ampul.neb, 3 ML IH Q4H PRN for SHORTNESS OF BREATH, (Reported) Levothyroxine Sodium 100 Mcg Tablet, 50 MCG PO DAILY, (Reported) TAKES 1/2 OF A (100 MG) Nystatin 100,000 Unit/1 Ml Oral.susp, 5 ML PO Q6HR for 7 Days Prescribed by: ELO RODRÍGUEZ on 05/27/17 115 Polyethylene Glycol 3350 17 Gm Powd.pack, 34 GM PO BID for 7 Days Prescribed by: ELO RODRÍGUEZ on 05/27/17 115 Prednisone 10 Mg Tab, 50 MG PO DAILY for 10 Days Prescribed by: ELO RODRÍGUEZ on 05/27/17 1155 Promethazine HCl/Codeine 118 Ml Syrup, 5 ML PO Q4H PRN for COUGH, (Reported) Roflumilast 500 Mcg Tablet, 500 MCG PO DAILY, (Reported) [Miconazole Nitrate 2% Crm] 28.4 GM CREAM..G., 0 GM TP BID for 7 Days Prescribed by: ELO RODRÍGUEZ on 05/27/17 1155 Past Jwwiztv-Ffyszg-Dndxen Hx Patient Social History Alcohol Use: Occasionally Uses Number of Drinks Today: 0 Alcohol Beverage of Choice: Other Recreational Drug Use: No Smoking Status: Former Smoker Type Used: Cigarettes Former Smoker, Quit: May 22, 2006 2nd Hand Smoke Exposure: No Recent Foreign Travel: No Contact w/Someone Who Travel: No Recent Infectious Disease Expo: No Recent Hopitalizations: No Immunizations Up To Date Date of Pneumonia Vaccine: Apr 17, 2011 Date of Influenza Vaccine: Feb 09, 2017 Seasonal Allergies Seasonal Allergies: No Surgeries History of Surgeries: Yes ( ENDOMETRIAL ABLATION, COLOSTOMY) Surgeries: Abdominal Respiratory History of Respiratory Disorde: Yes Respiratory Disorders: Pneumonia, Chronic Bronchitis, COPD Currently Using CPAP: No Currently Using BIPAP: No Cardiovascular History of Cardiac Disorders: Yes Neurological History of Neurological Disord: Yes Genitourinary History of Genitourinary Disor: No Gastrointestinal History of Gastrointestinal Di: Yes (RECTAL CA) Gastrointestinal Disorders: Gastroesophageal Reflux, Chronic Diarrhea Musculoskeletal History of Musculoskeletal Dis: No Endocrine History of Endocrine Disorders: Yes Endocrine Disorders: Hypothyroidsim Are Your Blood Sugars Over 250: No HEENT History of HEENT Disorders: No Cancer History of Cancer: Yes Cancer: Rectal Did You Recieve Any Treatments: Yes Type of Tx Receive: Chemotherapy, Radiation Psychosocial History of Psychiatric Problem: Yes Behavioral Health Disorders: Anxiety Integumentary History of Skin or Integumenta: No Blood Transfusions History of Blood Disorders: No Family Medical History Significant Family History: No Pertinent Family Hx Family Medial History: Review of Systems Time Seen by Provider: 09:39 Constitutional: Weakness, Malaise, No: Fever, Chills, Sweats, Other Respiratory: Cough, Dry, Shortness of breath, SOB with excertion Cardiovascular: Paroxysmal Noc. Dyspnea, No: Chest Pain, Palpitations, Orthopnea, Edema, Lt Headedness, Other Neurological: Weakness Exam Exam Vital Signs Date Time Temp Pulse Resp B/P (MAP) Pulse Ox O2 Delivery O2 Flow Rate FiO2 05/24/17 12:37 97 Nasal Cannula 2.00 05/24/17 10:06 95 Nasal Cannula 1.00 05/24/17 09:00 93 Nasal Cannula 1.00 05/24/17 08:58 97.5 105 18 124/74 (91) 93 Room Air 1.00 05/24/17 06:43 95 Nasal Cannula 2.00 05/24/17 04:00 98.4 92 24 130/84 (99) 97 Nasal Cannula 2.00 05/24/17 03:43 98 Nasal Cannula 1.00 05/23/17 23:11 97.8 107 22 133/86 (102) 96 Nasal Cannula 1.00 05/23/17 21:21 98 Nasal Cannula 1.00 05/23/17 21:00 Room Air 05/23/17 19:29 99.1 104 22 116/74 (88) 95 Room Air 1.00 05/23/17 15:44 99.1 116 22 112/71 (85) 92 Room Air 05/23/17 14:20 98 Nasal Cannula 1.00 I & O 05/24/17 07:00 Intake Total 3150 ml Output Total 2350 ml Balance 800 ml General Appearance: Moderate Distress Neck: Normal Inspection Respiratory: Other (breath sounds are distant and tight) Cardiovascular: Regular Rate, Rhythm, No Edema, No Gallop, No JVD, No Murmur, Normal Peripheral Pulses Capillary Refill: Less Than 3 Seconds Gastrointestinal: normal bowel sounds, non tender, soft Extremity: Normal Capillary Refill, Normal Inspection, Normal Range of Motion, Non Tender, No Calf Tenderness, No Pedal Edema Neurologic/Psychiatric: Alert, Oriented x3, No Motor/Sensory Deficits, Normal Mood/Affect Skin: Normal Color, Warm/Dry Lymphatic: No Adenopathy Results Lab Laboratory Tests 05/23/17 05:33 Assessment/Plan Assessment/Plan COPDAE -Pt is colonized with Pseudomonas. Every sputum culture going back to 2008 shows pseudomonas. Last CXR show no infiltration. She has no fever. She has no leukocytosis even on steroids. -Will repeat CXR and labs. Unless CXR shows infiltration there is no need to treat Pseudomonas because this is colonization. -Solumedrol -oxygen -SVNs anxiety/agitation Hx of rectal cancer 254 Clinical Quality Measures DVT/VTE Risk/Contraindication: Risk Factor Score Per Nursin RFS Level Per Nursing on Admit: 3=High TRAE PÉREZ DO May 24, 2017 13:06
--- NOTE | 2017-05-24 13:24 | Progress Note-Hospitalist ---
Standard Progress Note Progress Notes/Assess & Plan Date Seen 05/24/17 Time Seen by Provider: 13:20 Diagnosis COPD in exacerbation. 2.history of rectal cancer with left upper quadrant colostomy Assess & Plan/Chief Complaint The patient has become quite anxious today over her perception that she is not improving quickly enough. She has grown scant Pseudomonas and Klebsiella from her sputum. She became anxious and as to her observation that her sputum remained colored and the antibiotic must not be working (Zithromax). She admits that after a breathing treatment she seems to be doing better today. She was seen by Dr. Cline from pulmonology for consultation as to her exacerbation of bronchospasm and the question of antibiotics. As she has no fever and no infiltrate on chest x-ray he wishes to defer antibiotics at this time. The patient was reassured that this was a reasonable approach. Physical exam: Lungs show the breath sounds to be better and orozco than yesterday. There is an expiratory wheeze heard on the left. CV is regular. Abdomen is soft. Extremities show no pedal edema. Impression: COPD exacerbation. Plan: Increase respiratory treatments to every 2 hours for the remainder of the day. Labs Laboratory Tests 05/23/17 05:33 IRENE ESTEVEZ MD May 24, 2017 13:24
[2017-05-24 16:00] VITALS: BP 135/82
[2017-05-24 20:00] VITALS: BP 131/86
[2017-05-24] MEDS: CIPROFLOXACIN IV 400MG/200ML 200 ML IV SCH (21:14)
[2017-05-25] VITALS (16 sets, daily range): BP systolic 125–152; BP diastolic 81–105
[2017-05-25] MEDS: RT-ALBUTEROL/IPRATROPIUM 3 ML (DUONEB) VIAL INH SCH ×12 (00:02→22:18)
[2017-05-25] MEDS: NS IV 500 ML 500 ML IV SCH ×3 (01:33→21:30)
[2017-05-25] MEDS: methylPREDNISolone 125 MG (Solu-MEDROL) VIAL IV SCH ×3 (05:41→22:06)
[2017-05-25] MEDS: LEVOTHYROXINE 50 MCG (LEVOTHROID) TAB PO SCH (05:41)
[2017-05-25] MEDS: ONDANSETRON 4 MG/2 ML (SDV) Z0FRAN IV PRN (05:45)
[2017-05-25] MEDS: CATHETER FLUSH 10 ML SYR IV SCH ×3 (05:55→22:06)
[2017-05-25 06:37] LABS: HEMOGLOBIN 13.5 G/DL (11.5-16.0); RED BLOOD COUNT 4.41 10^6/uL (4.35-5.85); RED CELL DISTRIBUTION WIDTH 14.6 % (10.0-14.5); WHITE BLOOD COUNT 13.4 10^3/uL (4.3-11.0)
--- NOTE | 2017-05-25 06:37 | Pulmonary Progress Note ---
Subjective Time Seen by Provider: 06:41 Subjective/Events-last exam Pt was demanding Cipro last night. Exam Exam Vital Signs Date Time Temp Pulse Resp B/P (MAP) Pulse Ox O2 Delivery O2 Flow Rate FiO2 05/25/17 04:11 93 Nasal Cannula 2.00 05/25/17 04:07 98.0 110 17 136/84 (101) 97 Nasal Cannula 2.00 05/25/17 02:12 93 Nasal Cannula 2.00 05/25/17 00:22 98.4 107 18 135/87 (103) 94 Nasal Cannula 2.00 05/25/17 00:03 96 Nasal Cannula 2.00 05/24/17 22:20 99 Nasal Cannula 2.00 05/24/17 21:00 Nasal Cannula 2.00 05/24/17 20:16 94 Nasal Cannula 2.00 05/24/17 20:00 98.3 120 20 131/86 (101) 93 Nasal Cannula 2.00 05/24/17 18:27 94 Nasal Cannula 2.00 05/24/17 16:17 94 Nasal Cannula 2.00 05/24/17 16:00 98.4 106 19 135/82 (99) 95 Nasal Cannula 2.00 05/24/17 14:35 96 Nasal Cannula 2.00 05/24/17 12:37 97 Nasal Cannula 2.00 05/24/17 12:00 96.3 106 20 125/82 (96) 100 Nasal Cannula 2.00 05/24/17 10:06 95 Nasal Cannula 1.00 05/24/17 09:00 93 Nasal Cannula 1.00 05/24/17 08:58 97.5 105 18 124/74 (91) 93 Room Air 1.00 05/24/17 06:43 95 Nasal Cannula 2.00 I & O 05/25/17 06:59 Intake Total 3280 ml Output Total 3870 ml Balance -590 ml General Appearance: Anxious, Mild Distress Neck: Normal Inspection Respiratory: Other (breath sounds are distant and tight) Cardiovascular: Regular Rate, Rhythm, No Edema, No Gallop, No JVD, No Murmur, Normal Peripheral Pulses Capillary Refill: Less Than 3 Seconds Gastrointestinal: normal bowel sounds, non tender, soft Extremity: Normal Capillary Refill, Normal Inspection, Normal Range of Motion, Non Tender, No Calf Tenderness, No Pedal Edema Neurologic/Psychiatric: Alert, Oriented x3, No Motor/Sensory Deficits, Normal Mood/Affect Skin: Normal Color, Warm/Dry Lymphatic: No Adenopathy Assessment/Plan Assessment/Plan COPDAE -Pt is colonized with Pseudomonas. Every sputum culture going back to 2008 shows pseudomonas. Last CXR show no infiltration. She has no fever. She has no leukocytosis even on steroids. -Will repeat CXR and labs. Unless CXR shows infiltration there is no need to treat Pseudomonas because this is colonization. -Solumedrol -oxygen -SVNs anxiety/agitation -After pt called her family doctor she demanded to be placed on Cipro. Dr. Chacko was called and okayed cipro. -Pt was warned about the possible side effect of fluoroquinolones. She still insist on receiving Cipro. -If CXR shows a new developing infiltrate I will change Cipro to Levaquin for better lung penetration. -Add Risperdal 0.5mg BID Hx of rectal cancer 233 Clinical Quality Measures DVT/VTE Risk/Contraindication: Risk Factor Score Per Nursin RFS Level Per Nursing on Admit: 3=High TRAE PÉREZ DO May 25, 2017 06:37
[2017-05-25 07:01] LABS: BUN/CREATININE RATIO 25; CALCIUM 9.2 MG/DL (8.5-10.1); CARBON DIOXIDE 31 MMOL/L (21-32); CHLORIDE 98 MMOL/L (98-107); CREATININE SERUM 0.64 MG/DL (0.60-1.30); GFR ESTIMATED > 60; GLUCOSE 117 MG/DL (70-105); MAGNESIUM 2.3 MG/DL (1.8-2.4); PHOSPHORUS 4.1 MG/DL (2.3-4.7); POTASSIUM 4.7 MMOL/L (3.6-5.0); SODIUM 138 MMOL/L (135-145)
[2017-05-25] MEDS ORDERED: AZITHROMYCIN 250 MG TAB (ZITHROMAX) PO SCH (09:01)
[2017-05-25] MEDS: CIPROFLOXACIN IV 400MG/200ML 200 ML IV SCH (09:06)
[2017-05-25] MEDS: ALPRAZolam 1 MG (XANAX) TAB PO SCH ×3 (09:06→20:30)
[2017-05-25] MEDS: risperiDONE 0.25 MG (RisperDAL) TAB PO SCH ×2 (09:08→20:30)
--- NOTE | 2017-05-25 10:24 | Diagnostic Imaging Report ---
INDICATION: Shortness of breath, cough, wheeze. TECHNIQUE: Two view chest at 8:47 AM. CORRELATION STUDY: 02/28/2018. FINDINGS: The left-sided central line remains in place with the tip projected over the expected location of the SVC. The heart size, mediastinum, and vasculature are within normal limits. The lung jose demonstrate changes of COPD. There is linear scarlike formation, particularly of the right upper lobe. The diaphragms are somewhat indistinct but no definitive infiltrate is suggested. There is flattening of the diaphragms with an increase in the retrosternal dimension. IMPRESSION: Changes of COPD without evidence for acute cardiopulmonary abnormality or significant interval change from the prior study. Dictated by: Dictated on workstation # [id number]
--- NOTE | 2017-05-25 11:23 | Progress Note-Hospitalist ---
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 She reports that over the last 2 or 3 days should become progressively more short of breath. She ultimately came to the emergency room yesterday and was admitted. She reports she is been unaware of fever. She had been started on Tamiflu as her son was diagnosed as having the flu. She noted increased dyspnea on exertion. She reports that today she is modestly improved but still quite short of breath. Progress Notes/Assess & Plan Date Seen 05/25/17 Time Seen by Provider: 10:30 Diagonsis/Assessment & Plan Patient doing about the same and request antibiotic coverage similar to what she had in April [address] Wright when after multiple tries were unsuccessful then when appropriate antibiotics were given she improved within 2 days. I did speak with pharmacy and it appears that she was placed on cefepime and improved at that time so we'll double cover Pseudomonas that is likely colonized with decreasing inflammation by adding cefepime and will maintain IV steroids and nebulized treatments and oxygen. She does not report using home oxygen at home and she works at [employer] for the past 6 years. Has a friend at the bedside No fever, vital signs stable, pleasant, chronically ill, thin, anxious Regular rate and rhythm, wheezing all jose with mild use of accessory muscles No edema Laboratory Tests 05/25/17 06:30 Assessment: Severe COPD with bronchitis Hypoxemia severe on admission Leukocytosis Anxiety Plan: Maintain Cipro and add cefepime IV steroids Nebulizer treatments Oxygen Ambulate Reconcile home meds ELO RODRÍGUEZ DO May 25, 2017 11:23
[2017-05-25] MEDS: CEFEPIME INJECTION 2,000 MG in NS (IVPB) 50 ML IV SCH ×2 (12:45→23:43)
--- OUTSIDE RECORDS SUMMARY | 2017-05-25 12:58 | XMS REPORT | Continuity of Care Document ---
Author Author [facility] Organization [facility] Address Unknown Phone Unavailable Allergies Active Description Code Type Severity Reaction Onset Reported/Identified Relationship to Patient Clinical Status Yes levofloxacin [id number] Drug Allergy Unknown NAUSEA/VOMITING 01/17/2008 Yes moxifloxacin [id number] Drug Allergy Unknown N/V 01/17/2008 Medications There is no data. Problems Date Dx Coded Attending Type Code Diagnosis Diagnosed By 06/13/2010 Ot 041.7 06/13/2010 Ot 244.9 06/13/2010 Ot 300.00 06/13/2010 Ot 401.9 06/13/2010 Ot 491.22 06/13/2010 Ot 493.20 06/13/2010 Ot V15.82 06/14/2012 Ot 562.10 DIVERTICULOSIS COLON (W/O MENT OF HEMORR 06/14/2012 Ot 599.0 URIN TRACT INFECTION NOS 06/14/2012 Ot 789.09 ABDOMINAL PAIN, OTHER SPECIFIED SITE 04/23/2013 BRIGETTE BYRD, MICHAEL Lux Ot 244.9 HYPOTHYROIDISM NOS 04/23/2013 MICHAEL MACHUCA MD Ot 300.00 ANXIETY STATE NOS 04/23/2013 MICHAEL MACHUCA MD Ot 401.9 HYPERTENSION NOS 04/23/2013 MICHAEL MACHUCA MD Ot 482.1 PSEUDOMONAL PNEUMONIA 04/23/2013 MICHAEL MACHUCA MD Ot 491.22 OBSTRUCTIVE CHRONIC BRONCHITIS WITH ACUT 04/23/2013 MICHAEL MACHUCA MD Ot 518.81 ACUTE RESPIRATORY FAILURE 04/23/2013 MICHAEL MACHUCA MD Ot 782.3 EDEMA 04/23/2013 MICHAEL MACHUCA MD Ot 785.1 PALPITATIONS 04/23/2013 MICHAEL MACHUCA MD Ot V04.81 ND FOR PROPHYLACTIC VACCIN AND INOCULATI 04/23/2013 MICHAEL MACHUCA MD Ot V15.82 HISTORY OF TOBACCO USE 09/10/2014 Ot 626.2 09/10/2014 Ot 793.81 09/10/2014 Ot V16.3 09/10/2014 Ot V76.12 09/10/2014 Ot 793.81 09/10/2014 Ot 793.81 09/10/2014 BRIGETTE BYRD, MICHAEL Lux Ot 466.0 09/10/2014 QUICK, SAMUEL Dee STRATEGIC PLANNER Ot 625.9 09/10/2014 QUICK, SAMUEL Dee STRATEGIC PLANNER Ot V72.31 09/10/2014 QUICK, SAMUEL Dee STRATEGIC PLANNER Ot V76.12 09/10/2014 QUICK, SAMUEL Dee STRATEGIC PLANNER Ot 793.80 09/27/2014 MARY BYRD, SHEYLA Ot 455.0 INT HEMORRHOID W/O COMPL 09/27/2014 MARY BYRD, SHEYLA Ot 455.3 EXT HEMORRHOID W/O COMPL 09/27/2014 MARY BYRD, SHEYLA Ot 569.0 ANAL RECTAL POLYP 09/27/2014 MARY BYRD, SHEYLA Ot 569.3 RECTAL ANAL HEMORRHAGE 09/27/2014 MARY BYRD, SHEYLA Ot V16.0 FAMILY HX-GI MALIGNANCY 10/09/2014 Ot 626.2 10/09/2014 Ot 793.81 10/09/2014 Ot V16.3 10/09/2014 Ot V76.12 10/09/2014 Ot 793.81 10/09/2014 Ot 793.81 10/09/2014 BRIGETTE BYRD, MICHAEL Lux Ot 466.0 10/09/2014 QUICK, SAMUEL Dee STRATEGIC PLANNER Ot 625.9 10/09/2014 QUICK, SAMUEL Dee STRATEGIC PLANNER Ot V72.31 10/09/2014 QUICK, SAMUEL W STRATEGIC PLANNER Ot V76.12 10/09/2014 QUICK, SAMUEL W STRATEGIC PLANNER Ot 793.80 10/09/2014 QUICK, SAMUEL W STRATEGIC PLANNER Ot 244.9 10/09/2014 QUICK, SAMUEL W STRATEGIC PLANNER Ot 569.3 10/09/2014 MARY BYRD, SHEYLA Ot V72.84 10/22/2014 QUICK, SAMUEL W STRATEGIC PLANNER Ot 625.9 10/22/2014 QUICK, SAMUEL W STRATEGIC PLANNER Ot V72.31 12/31/2014 ESTEFANI BYRD, [facility] Ot 244.9 12/31/2014 ESTEFANI BYRD, [facility] Ot 300.00 12/31/2014 ESTEFANI BYRD, LILIANA Ot 424.0 12/31/2014 ESTEFANI BYRD, LILIANA Ot 496 12/31/2014 ESTEFANI BYRD, LILIANA Ot 564.00 12/31/2014 ESTEFANI BYRD, LILIANA Ot 569.0 12/31/2014 ESTEFANI BYRD, LILIANA Ot 569.3 12/31/2014 ESTEFANI BYRD, LILIANA Ot 787.91 12/31/2014 ESTEFANI BYRD, LILIANA Ot V58.69 01/08/2015 ESTEFANI BYRD, LILIANA Ot 244.9 HYPOTHYROIDISM NOS 01/08/2015 ESTEFANI BYRD, LILIANA Ot 300.00 ANXIETY STATE NOS 01/08/2015 ESTEFANI BYRD, LILIANA Ot 424.0 MITRAL VALVE DISORDER 01/08/2015 ESTEFANI BYRD, LILIANA Ot 496 CHR AIRWAY OBSTRUCT NEC 01/08/2015 ESTEFANI BYRD, LILIANA Ot 564.00 UNSPEC CONSTIPATION 01/08/2015 ESTEFANI BYRD, LILIANA Ot 569.0 ANAL RECTAL POLYP 01/08/2015 ESTEFANI BYRD, LILIANA Ot 569.3 RECTAL ANAL HEMORRHAGE 01/08/2015 ESTEFANI BYRD, LILIANA Ot 787.91 DIARRHEA 01/08/2015 ESTEFANI BYRD, LILIANA Ot V58.69 OT MED,LT,CURRENT USE 01/16/2015 MARY BYRD, SHEYLA Ot C20 MALIGNANT NEOPLASM OF RECTUM 01/23/2015 LILIANA JARA MD Ot 154.1 01/23/2015 Ot 626.2 01/23/2015 Ot 793.81 01/23/2015 Ot V16.3 01/23/2015 Ot V76.12 01/23/2015 Ot 793.81 01/23/2015 Ot 793.81 01/23/2015 BRIGETTE BYRD, MICHAEL Lux Ot 466.0 01/23/2015 QUICK, SAMUEL Dee STRATEGIC PLANNER Ot 625.9 01/23/2015 QUICK, SAMUEL Dee STRATEGIC PLANNER Ot V72.31 01/23/2015 QUICK, SAMUEL Dee STRATEGIC PLANNER Ot V76.12 01/23/2015 QUICK, SAMUEL Dee STRATEGIC PLANNER Ot 793.80 01/23/2015 QUICK, SAMUEL Dee STRATEGIC PLANNER Ot 244.9 01/23/2015 QUICK, SAMUEL Dee STRATEGIC PLANNER Ot 569.3 01/23/2015 MARY BYRD, SHEYLA Ot V72.84 01/23/2015 ESTEFANI BYRD, B[facility] Ot 154.1 01/23/2015 MARY BYRD, MAGDAKI Ot C20 01/23/2015 MARY BYRD, SHEYLA Ot Z01.818 01/23/2015 ESTEFANI BYRD, LILIANA Ot 244.9 01/23/2015 ESTEFANI BYRD, BURNETTMONIQUE Ot 300.00 01/23/2015 ESTEFANI BYRD, BURNETTMONIQUE Ot 424.0 01/23/2015 ESTEFANI BYRD, LILIANA Ot 496 01/23/2015 ESTEFANI BYRD, BURNETTMONIQUE Ot 564.00 01/23/2015 ESTEFANI BYRD, BURNETTMONIQUE Ot 569.0 01/23/2015 ESTEFANI BYRD, LILIANA Ot 569.3 01/23/2015 ESTEFANI BYRD, [facility]UR[facility]T-MONI[facility] Ot 787.91 01/23/2015 ESTEFANI BYRD, [facility]-[facility] Ot V58.69 01/23/2015 SCOTT PRECIADO STRATEGIC PLANNER Ot C20 02/17/2015 ESTEFANI BYRD, LILIANA Ot 244.9 02/17/2015 ESTEFANI BYRD, BURNETTMONIQUE Ot 300.00 02/17/2015 ESTEFANI BYRD, BURNETT-MONIQUE Ot 424.0 02/17/2015 ESTEFANI BYRD, LILIANA Ot 496 02/17/2015 ESTEFANI BYRD, LILIANA Ot 564.00 02/17/2015 ESTEFANI BYRD, BURNETTMONIQUE Ot 569.0 02/17/2015 ESTEFANI BYRD, LILIANA Ot 569.3 02/17/2015 ESTEFANI BYRD, LILIANA Ot 787.91 02/17/2015 ESTEFANI BYRD, BURNETTMONIQUE Ot V58.69 02/27/2015 Ot 793.81 02/27/2015 BRIGETTE BYRD, MICHAEL Lux Ot 466.0 02/27/2015 QUICK, SAMUEL W STRATEGIC PLANNER Ot 625.9 02/27/2015 QUICK, SAMUEL W STRATEGIC PLANNER Ot V72.31 02/27/2015 QUICK, SAMUEL W STRATEGIC PLANNER Ot V76.12 02/27/2015 QUICK, SAMUEL W STRATEGIC PLANNER Ot 793.80 02/27/2015 QUICK, SAMUEL W STRATEGIC PLANNER Ot 244.9 02/27/2015 QUICK, SAMUEL W STRATEGIC PLANNER Ot 569.3 02/27/2015 MARY BYRD, SHEYLA Ot V72.84 02/27/2015 ESTEFANI BYRD, LEX-MONIQUE Ot 154.1 02/27/2015 MARY BYRD, TAKAAKI Ot C20 02/27/2015 MARY BYRD, TAKSARAY Ot Z01.818 02/27/2015 ESTEFANI BYRD, BRUNETT-MONIQUE Ot C20 02/27/2015 ESTEFANI BYRD, BURNETT-MONIQUE Ot Z51.0 02/27/2015 SCOTT PRECIADO STRATEGIC PLANNER Ot C20 02/27/2015 ESTEFANI BYRD, BURNETT-MONIQUE Ot C20 02/27/2015 ESTEFANI BYRD, BURNETT-MONIQUE Ot Z51.0 02/27/2015 ESTEFANI BYRD, BURNETT-MONIQUE Ot 154.1 04/07/2015 SCOTT PRECIADO STRATEGIC PLANNER Ot C20 04/07/2015 SCOTT PRECIADO STRATEGIC PLANNER Ot C20 04/07/2015 ESTEFANI BYRD, BURNETT-MONIQUE Ot C20 04/07/2015 ESTEFANI BYRD, LEX-MONIQUE Ot Z51.0 04/07/2015 ESTEFANI BYRD, BURNETT-MONIQUE Ot 154.1 04/09/2015 ESTEFANI BYRD, BURNETT-MONIQUE Ot 154.1 04/09/2015 ESTEFANI BYRD, BURNETT-MONIQUE Ot C20 04/09/2015 ESTEFANI BYRD, BURNETT-MONIQUE Ot Z51.0 04/09/2015 SCOTT PRECIADO STRATEGIC PLANNER Ot C20 04/10/2015 ESTEFANI BYRD, BURNETT-MONIQUE Ot C20 MALIGNANT NEOPLASM OF RECTUM 04/10/2015 ESTEFANI BYRD, BURNETT-MONIQUE Ot Z51.0 ENCOUNTER FOR ANTINEOPLASTIC RADIATION T 04/25/2015 Ot 793.81 04/25/2015 BRIGETTE BYRD, MICHAEL Lux Ot 466.0 04/25/2015 QUICK, SAMUEL Dee STRATEGIC PLANNER Ot 625.9 04/25/2015 QUICK, SAMUEL Dee STRATEGIC PLANNER Ot V72.31 04/25/2015 QUICK, SAMUEL W STRATEGIC PLANNER Ot V76.12 04/25/2015 QUICK, SAMUEL W STRATEGIC PLANNER Ot 793.80 04/25/2015 QUICK, SAMUEL W STRATEGIC PLANNER Ot 244.9 04/25/2015 QUICK, SAMUEL W STRATEGIC PLANNER Ot 569.3 04/25/2015 MARY BYRD, SHEYLA Ot V72.84 04/25/2015 ESTEFANI BYRD, BURNETT-MONIQUE Ot 154.1 04/25/2015 MARY BYRD, TAKAAKI Ot C20 04/25/2015 MARY BYRD, TAKAAKI Ot Z01.818 04/25/2015 SCOTT PRECIADO STRATEGIC PLANNER Ot C20 04/25/2015 ESTEFANI BYRD, LEX-MONIQUE Ot C20 04/25/2015 ESTEFANI BYRD, LEX-MONIQUE Ot Z51.0 04/25/2015 ESTEFANI BYRD, BURNETT-MONIQUE Ot C20 04/25/2015 ESTEFANI BYRD, BURNETT-MONIQUE Ot Z51.0 04/25/2015 Ot 793.81 04/25/2015 BRIGETTE BYRD, MICHAEL Lux Ot 466.0 04/25/2015 QUICK, SAMUEL W STRATEGIC PLANNER Ot 625.9 04/25/2015 QUICK, SAMUEL W STRATEGIC PLANNER Ot V72.31 04/25/2015 QUICK, SAMUEL W STRATEGIC PLANNER Ot V76.12 04/25/2015 QUICK, SAMUEL W STRATEGIC PLANNER Ot 793.80 04/25/2015 QUICK, SAMUEL W STRATEGIC PLANNER Ot 244.9 04/25/2015 QUICK, SAMUEL W STRATEGIC PLANNER Ot 569.3 04/25/2015 MARY BYRD, TAKAAKI Ot V72.84 04/25/2015 ESTEFANI BYRD, BURNETT-MONIQUE Ot 154.1 04/25/2015 MARY BYRD, TAKAAKI Ot C20 04/25/2015 MARY BYRD, TAKAAKI Ot Z01.818 04/25/2015 SCOTT PRECIADO STRATEGIC PLANNER Ot C20 04/25/2015 ESTEFANI BYRD, BURNETT-MONIQUE Ot C20 04/25/2015 ESTEFANI BYRD, BURNETT-MONIQUE Ot Z51.0 04/25/2015 ESTEFANI BYRD, BURNETT-MONIQUE Ot C20 04/25/2015 ESTEFANI BYRD, BURNETT-MONIQUE Ot Z51.0 04/25/2015 Ot 793.81 04/25/2015 BRIGETTE BYRD, MICHAEL Lux Ot 466.0 04/25/2015 QUICK, SAMUEL W STRATEGIC PLANNER Ot 625.9 04/25/2015 QUICK, SAMUEL W STRATEGIC PLANNER Ot V72.31 04/25/2015 QUICK, SAMUEL W STRATEGIC PLANNER Ot V76.12 04/25/2015 QUICK, SAMUEL W STRATEGIC PLANNER Ot 793.80 04/25/2015 QUICK, SAMUEL W STRATEGIC PLANNER Ot 244.9 04/25/2015 QUICK, SAMUEL W STRATEGIC PLANNER Ot 569.3 04/25/2015 MARY BYRD, LINDAAAKI Ot V72.84 04/25/2015 ESTEFANI BYRD, BURNETT-MONIQUE Ot 154.1 04/25/2015 MARY BYRD, TAKAAKI Ot C20 04/25/2015 MARY BYRD, LINDAAAKI Ot Z01.818 04/25/2015 SCOTT PRECIADO STRATEGIC PLANNER Ot C20 04/25/2015 ESTEFANI BYRD, LILIANA Ot C20 04/25/2015 ESTEFANI BYRD, BURNETT-MONIQUE Ot Z51.0 05/11/2015 Ot 793.81 05/11/2015 BRIGETTE BYRD, MICHAEL Lux Ot 466.0 05/11/2015 QUICK, SAMUEL W STRATEGIC PLANNER Ot 625.9 05/11/2015 QUICK, SAMUEL W STRATEGIC PLANNER Ot V72.31 05/11/2015 QUICK, SAMUEL W STRATEGIC PLANNER Ot V76.12 05/11/2015 QUICK, SAMUEL W STRATEGIC PLANNER Ot 793.80 05/11/2015 QUICK, SAMUEL W STRATEGIC PLANNER Ot 244.9 05/11/2015 QUICK, SAMUEL W STRATEGIC PLANNER Ot 569.3 05/11/2015 MARY BYRD, LINDAAAKI Ot V72.84 05/11/2015 ESTEFANI BYRD, BURNETTKiranMONIQUE Ot 154.1 05/11/2015 MARY BYRD, MAGDAKI Ot C20 05/11/2015 MARY BYRD, SHEYLA Ot Z01.818 05/11/2015 SCOTT PRECIADO STRATEGIC PLANNER Ot C20 05/11/2015 ESTEFANI BYRD, LILIANA Ot C20 05/11/2015 ESTEFANI BYRD, LILIANA Ot Z51.0 05/11/2015 IRENE ESTEVEZ MD Ot C20 MALIGNANT NEOPLASM OF RECTUM 05/11/2015 IRENE ESTEVEZ MD Ot F17.211 NICOTINE DEPENDENCE, CIGARETTES, IN [place]SH[place] 05/11/2015 IRENE ESTEVEZ MD Ot M79.661 PAIN IN RIGHT LOWER LEG 05/11/2015 IRENE ESTEVEZ MD Ot M79.662 PAIN IN LEFT LOWER LEG 05/11/2015 IRENE ESTEVEZ MD Ot R53.1 WEAKNESS 05/11/2015 IRENE ESTEVEZ MD Ot R91.8 OTHER NONSPECIFIC ABNORMAL FINDING OF YUNG 05/11/2015 IRENE ESTEVEZ MD Ot Z79.899 OTHER RELIGIOUS ACTIVITIES DIRECTOR (CURRENT) DRUG THERAPY 05/23/2015 Ot 793.81 05/23/2015 BRIGETTE BYRD, MICHAEL D Ot 466.0 05/23/2015 QUICK, SAMUEL W STRATEGIC PLANNER Ot 625.9 05/23/2015 QUICK, SAMUEL W STRATEGIC PLANNER Ot V72.31 05/23/2015 QUICK, SAUMEL W STRATEGIC PLANNER Ot V76.12 05/23/2015 QUICK, SAMUEL W STRATEGIC PLANNER Ot 793.80 05/23/2015 QUICK, SAMUEL W STRATEGIC PLANNER Ot 244.9 05/23/2015 QUICK, SAMUEL W STRATEGIC PLANNER Ot 569.3 05/23/2015 MARY BYRD, TAKAAKI Ot V72.84 05/23/2015 ESTEFANI BYRD, BURNETT-MONIQUE Ot 154.1 05/23/2015 MARY BYRD, TAKAAKI Ot C20 05/23/2015 MARY BYRD, TAKAAKI Ot Z01.818 05/23/2015 SCOTT PRECIADO STRATEGIC PLANNER Ot C20 05/23/2015 ESTEFANI BYRD, BURNETT-MONIQUE Ot C20 05/23/2015 ESTEFANI BYRD, BURNETT-MONIQUE Ot Z51.0 06/04/2015 ESTEFANI BYRD, BURNETT-MONIQUE Ot C20 06/04/2015 ESTEFANI BYRD, BURNETT-MONIQUE Ot Z51.0 06/05/2015 BRIGETTE BYRD, MICHAEL D Ot 466.0 06/05/2015 QUICK, SAMUEL W STRATEGIC PLANNER Ot 625.9 06/05/2015 QUICK, SAMUEL W STRATEGIC PLANNER Ot V72.31 06/05/2015 QUICK, SAMUEL W STRATEGIC PLANNER Ot V76.12 06/05/2015 QUICK, SAMUEL W STRATEGIC PLANNER Ot 793.80 06/05/2015 QUICK, SAMUEL W STRATEGIC PLANNER Ot 244.9 06/05/2015 QUICK, SAMUEL W STRATEGIC PLANNER Ot 569.3 06/05/2015 MARY BYRD, TAKAAKI Ot V72.84 06/05/2015 ESTEFANI BYRD, BURNETT-MONIQUE Ot 154.1 06/05/2015 MARY BYRD, TAKAAKI Ot C20 06/05/2015 MARY BYRD, TAKAAKI Ot Z01.818 06/05/2015 SCOTT PRECIADO STRATEGIC PLANNER Ot C20 06/05/2015 ESTEFANI BYRD, BURNETT-MONIQUE Ot C20 06/05/2015 ESTEFANI BYRD, BURNETT-MONIQUE Ot Z45.2 06/27/2015 QUICK, SAMUEL Dee STRATEGIC PLANNER Ot 244.9 06/27/2015 QUICK, SAMUEL Dee STRATEGIC PLANNER Ot 569.3 06/27/2015 CHRIS ROSE APRN Ot K59.09 07/01/2015 BRIGETTE BYRD, MICHAEL Lux Ot 466.0 07/01/2015 QUICK, SAMUEL W STRATEGIC PLANNER Ot 625.9 07/01/2015 QUICK, SAMUEL W STRATEGIC PLANNER Ot V72.31 07/01/2015 QUICK, SAMUEL W STRATEGIC PLANNER Ot V76.12 07/01/2015 QUICK, SAMUEL W STRATEGIC PLANNER Ot 793.80 07/01/2015 QUICK, SAMUEL Dee STRATEGIC PLANNER Ot 244.9 07/01/2015 QUICK, SAMUEL W STRATEGIC PLANNER Ot 569.3 07/01/2015 MARY BYRD, SHEYLA Ot V72.84 07/01/2015 ESTEFANI BYRD, LILIANA Ot 154.1 07/01/2015 MARY BYRD, LINDAAAKI Ot C20 07/01/2015 MARY BYRD, SHEYLA Ot Z01.818 07/01/2015 SCOTT PRECIADOP Ot C20 07/01/2015 ESTEFANI BYRD, LILIANA Ot C20 07/01/2015 ESTEFANI BYRD, LILIANA Ot Z45.2 07/01/2015 CHRIS ROSE APRN Ot K59.09 07/14/2015 ESTEFANI BYRD, LILIANA Ot C20 MALIGNANT NEOPLASM OF RECTUM 07/14/2015 ESTEFANI BYRD, LILIANA Ot Z45.2 ENCOUNTER FOR ADJUSTMENT AND MANAGEMENT 07/15/2015 ESTEFANI BYRD, LILIANA Ot C20 07/15/2015 ESTEFANI BYRD, LILIANA Ot Z45.2 07/16/2015 ESTEFANI BYRD, LILIANA Ot C20 07/16/2015 ESTEFANI BYRD, LILIANA Ot Z45.2 07/21/2015 SCOTT PRECIADO [employer] PLANNER Ot C20 07/21/2015 SCOTT PRECIADOP Ot E03.9 07/21/2015 SCOTT PRECIADO STRATEGIC PLANNER Ot J44.9 07/21/2015 SCOTT PRECIADOP Ot Z79.899 07/21/2015 SCOTT PRECIADOP Ot Z93.3 08/05/2015 ESTEFANI BYRD, LILIANA Ot C20 MALIGNANT NEOPLASM OF RECTUM 08/05/2015 LILIANA JARA MD Ot E03.9 HYPOTHYROIDISM, UNSPECIFIED 08/05/2015 LILIANA JARA MD Ot J44.9 CHRONIC OBSTRUCTIVE PULMONARY DISEASE, U 08/05/2015 LILIANA JARA MD Ot Z51.11 ENCOUNTER FOR ANTINEOPLASTIC CHEMOTHERAP 08/05/2015 LILIANA JARA MD Ot Z79.899 OTHER DETENTION (CURRENT) DRUG THERAPY 08/05/2015 LILIANA JARA MD, Ot Z93.3 COLOSTOMY STATUS 09/05/2015 LILIANA JARA MD Ot C20 MALIGNANT NEOPLASM OF RECTUM 09/05/2015 LILIANA JARA MD Ot E03.9 HYPOTHYROIDISM, UNSPECIFIED 09/05/2015 LILIANA JARA MD, Ot J44.9 CHRONIC OBSTRUCTIVE PULMONARY DISEASE, U 09/05/2015 LILIANA JARA MD Ot Z51.11 ENCOUNTER FOR ANTINEOPLASTIC CHEMOTHERAP 09/05/2015 LILIANA JARA MD Ot Z79.899 OTHER DETENTION (CURRENT) DRUG THERAPY 09/05/2015 LILIANA JARA MD Ot Z93.3 COLOSTOMY STATUS 09/16/2015 LILIANA JARA MD Ot C20 MALIGNANT NEOPLASM OF RECTUM 09/16/2015 LILIANA JARA MD Ot E03.9 HYPOTHYROIDISM, UNSPECIFIED 09/16/2015 LILIANA JARA MD, Ot J44.9 CHRONIC OBSTRUCTIVE PULMONARY DISEASE, U 09/16/2015 LILIANA JARA MD Ot Z51.11 ENCOUNTER FOR ANTINEOPLASTIC CHEMOTHERAP 09/16/2015 LILIANA JARA MD Ot Z79.899 OTHER RELIGIOUS ACTIVITIES DIRECTOR (CURRENT) DRUG THERAPY 09/16/2015 LILIANA JARA MD Ot Z93.3 COLOSTOMY STATUS 10/13/2015 LILIANA JARA MD Ot C20 MALIGNANT NEOPLASM OF RECTUM 10/13/2015 LILIANA JARA MD Ot E03.9 HYPOTHYROIDISM, UNSPECIFIED 10/13/2015 LILIANA JARA MD Ot J44.9 CHRONIC OBSTRUCTIVE PULMONARY DISEASE, U 10/13/2015 LILIANA JARA MD Ot Z51.11 ENCOUNTER FOR ANTINEOPLASTIC CHEMOTHERAP 10/13/2015 LILIANA JARA MD Ot Z79.899 OTHER DETENTION (CURRENT) DRUG THERAPY 10/13/2015 LILIANA JARA MD Ot Z93.3 COLOSTOMY STATUS 10/20/2015 LILIANA JARA MD Ot C20 MALIGNANT NEOPLASM OF RECTUM 10/20/2015 LILIANA JARA MD Ot E03.9 HYPOTHYROIDISM, UNSPECIFIED 10/20/2015 LILIANA JARA MD, Ot J44.9 CHRONIC OBSTRUCTIVE PULMONARY DISEASE, U 10/20/2015 LILIANA JARA MD Ot Z51.11 ENCOUNTER FOR ANTINEOPLASTIC CHEMOTHERAP 10/20/2015 LILIANA JARA MD Ot Z79.899 OTHER DETENTION (CURRENT) DRUG THERAPY 10/20/2015 LILIANA JARA MD Ot Z93.3 COLOSTOMY STATUS 11/18/2015 LILIANA JARA MD, Ot C20 MALIGNANT NEOPLASM OF RECTUM 11/18/2015 LILIANA JARA MD Ot E03.9 HYPOTHYROIDISM, UNSPECIFIED 11/18/2015 LILIANA JARA MD, Ot J44.9 CHRONIC OBSTRUCTIVE PULMONARY DISEASE, U 11/18/2015 LILIANA JARA MD, Ot Z51.11 ENCOUNTER FOR ANTINEOPLASTIC CHEMOTHERAP 11/18/2015 LILIANA JARA MD, Ot Z79.899 OTHER RELIGIOUS ACTIVITIES DIRECTOR (CURRENT) DRUG THERAPY 11/18/2015 LILIANA JARA MD, Ot Z93.3 COLOSTOMY STATUS 12/09/2015 BRIGETTE BYRD, MICHAEL Lux Ot 466.0 ACUTE BRONCHITIS 12/09/2015 SAMUEL KEITH STRATEGIC PLANNER Ot 625.9 FEM GENITAL SYMPTOMS NOS 12/09/2015 SAMUEL KEITH STRATEGIC PLANNER Ot V72.31 ROUTINE GYNECOLOGICAL EXAMINATION 12/09/2015 SAMUEL KEITH STRATEGIC PLANNER Ot V76.12 OTH SCREEN MAMMO-MALIGN NEOPLASM OF NOE 12/09/2015 SAMUEL KEITH STRATEGIC PLANNER Ot 793.80 UNSPEC ABNORMAL MAMMOGRAM 12/09/2015 SAMUEL KEITH STRATEGIC PLANNER Ot 244.9 HYPOTHYROIDISM NOS 12/09/2015 SAMUEL KEITH STRATEGIC PLANNER Ot 569.3 RECTAL ANAL HEMORRHAGE 12/09/2015 SHEYLA HERNANDEZ MD Ot V72.84 EXAM PRE-OPERATIVE NOS 12/09/2015 LILIANA JARA MD Ot 154.1 MALIGNANT NEOPL RECTUM 12/09/2015 SHEYLA HERNANDEZ MD Ot C20 MALIGNANT NEOPLASM OF RECTUM 12/09/2015 SHEYLA HERNANDEZ MD Ot Z01.818 ENCOUNTER FOR OTHER PREPROCEDURAL EXAMIN 12/09/2015 SCOTT PRECIADO STRATEGIC PLANNER Ot C20 MALIGNANT NEOPLASM OF RECTUM 12/09/2015 CHRIS ROSE CANDIS Ot K59.09 OTHER CONSTIPATION 12/09/2015 SCOTT PRECIADO STRATEGIC PLANNER Ot C20 MALIGNANT NEOPLASM OF RECTUM 12/09/2015 SCOTT PRECIADO STRATEGIC PLANNER Ot E03.9 HYPOTHYROIDISM, UNSPECIFIED 12/09/2015 SCOTT PRECIADO STRATEGIC PLANNER Ot J44.9 CHRONIC OBSTRUCTIVE PULMONARY DISEASE, U 12/09/2015 SCOTT PRECIADO STRATEGIC PLANNER Ot Z79.899 OTHER RELIGIOUS ACTIVITIES DIRECTOR (CURRENT) DRUG THERAPY 12/09/2015 PRECIADOSCOTT Greco STRATEGIC PLANNER Ot Z93.3 COLOSTOMY STATUS 12/09/2015 LILIANA JARA MD, Ot C20 MALIGNANT NEOPLASM OF RECTUM 12/09/2015 LILIANA JARA MD, Ot E03.9 HYPOTHYROIDISM, UNSPECIFIED 12/09/2015 LILIANA JARA MD, Ot J44.9 CHRONIC OBSTRUCTIVE PULMONARY DISEASE, U 12/09/2015 LILIANA JARA MD, Ot Z51.11 ENCOUNTER FOR ANTINEOPLASTIC CHEMOTHERAP 12/09/2015 LILIANA JARA MD, Ot Z79.899 OTHER DETENTION (CURRENT) DRUG THERAPY 12/09/2015 LILIANA JARA MD, Ot Z93.3 COLOSTOMY STATUS 12/09/2015 LILIANA JARA MD, Ot C20 MALIGNANT NEOPLASM OF RECTUM 12/09/2015 LILIANA JARA MD Ot R94.5 ABNORMAL RESULTS OF LIVER FUNCTION STUDI 01/05/2016 LILIANA JARA MD, Ot C20 MALIGNANT NEOPLASM OF RECTUM 01/05/2016 LILIANA JARA MD, Ot R94.5 ABNORMAL RESULTS OF LIVER FUNCTION STUDI 01/19/2016 LILIANA JARA MD, Ot C20 MALIGNANT NEOPLASM OF RECTUM 01/19/2016 LILIANA JARA MD Ot E03.9 HYPOTHYROIDISM, UNSPECIFIED 01/19/2016 LILIANA JARA MD, Ot J44.9 CHRONIC OBSTRUCTIVE PULMONARY DISEASE, U 01/19/2016 LILIANA JARA MD, Ot Z79.899 OTHER RELIGIOUS ACTIVITIES DIRECTOR (CURRENT) DRUG THERAPY 01/19/2016 LILIANA JARA MD, Ot Z93.3 COLOSTOMY STATUS 02/04/2016 LILIANA JARA MD, Ot C20 MALIGNANT NEOPLASM OF RECTUM 02/04/2016 LILIANA JARA MD Ot E03.9 HYPOTHYROIDISM, UNSPECIFIED 02/04/2016 LILIANA JARA MD Ot J44.9 CHRONIC OBSTRUCTIVE PULMONARY DISEASE, U 02/04/2016 LILIANA JARA MD Ot Z79.899 OTHER DETENTION (CURRENT) DRUG THERAPY 02/04/2016 LILIANA JARA MD Ot Z93.3 COLOSTOMY STATUS 05/03/2016 LILIANA JARA MD Ot C20 MALIGNANT NEOPLASM OF RECTUM 05/03/2016 LILIANA JARA MD Ot E03.9 HYPOTHYROIDISM, UNSPECIFIED 05/03/2016 LILIANA JARA MD Ot J44.9 CHRONIC OBSTRUCTIVE PULMONARY DISEASE, U 05/03/2016 LILIANA JARA MD Ot Z79.899 OTHER RELIGIOUS ACTIVITIES DIRECTOR (CURRENT) DRUG THERAPY 05/03/2016 LILIANA JARA MD Ot Z93.3 COLOSTOMY STATUS 05/04/2016 LILIANA JARA MD Ot C20 MALIGNANT NEOPLASM OF RECTUM 05/04/2016 LILIANA JARA MD Ot E03.9 HYPOTHYROIDISM, UNSPECIFIED 05/04/2016 LILIANA JARA MD Ot J44.9 CHRONIC OBSTRUCTIVE PULMONARY DISEASE, U 05/04/2016 LILIANA JARA MD Ot Z79.899 OTHER DETENTION (CURRENT) DRUG THERAPY 05/04/2016 LILIANA JARA MD Ot Z93.3 COLOSTOMY STATUS 05/05/2016 LILIANA JARA MD Ot C20 MALIGNANT NEOPLASM OF RECTUM 05/05/2016 LILIANA JARA MD Ot E03.9 HYPOTHYROIDISM, UNSPECIFIED 05/05/2016 LILIANA JARA MD Ot J44.9 CHRONIC OBSTRUCTIVE PULMONARY DISEASE, U 05/05/2016 LILIANA JARA MD Ot Z79.899 OTHER DETENTION (CURRENT) DRUG THERAPY 05/05/2016 LILIANA JARA MD Ot Z93.3 COLOSTOMY STATUS 05/09/2016 LILIANA JARA MD Ot C20 MALIGNANT NEOPLASM OF RECTUM 05/09/2016 LILIANA JARA MD Ot E03.9 HYPOTHYROIDISM, UNSPECIFIED 05/09/2016 LILIANA JARA MD Ot J44.9 CHRONIC OBSTRUCTIVE PULMONARY DISEASE, U 05/09/2016 LILIANA JARA MD Ot Z79.899 OTHER RELIGIOUS ACTIVITIES DIRECTOR (CURRENT) DRUG THERAPY 05/09/2016 ESTEFANI BYRD, LILIANA Ot Z93.3 COLOSTOMY STATUS 05/25/2016 CHRIS ROSE METAL ENGRAVER Ot Z00.00 ENCNTR FOR GENERAL ADULT MEDICAL EXAM W/ 05/31/2016 MINA BYRD, JANY Ahn Ot J44.1 CHRONIC OBSTRUCTIVE PULMONARY DISEASE W 05/31/2016 MINA BYRD, JANY Ahn Ot R06.02 SHORTNESS OF BREATH 05/31/2016 MINA BYRD, JANY Ahn Ot Z87.891 PERSONAL HISTORY OF NICOTINE DEPENDENCE 06/02/2016 MINA BYRD, JANY Ahn Ot J44.1 CHRONIC OBSTRUCTIVE PULMONARY DISEASE W 06/02/2016 MINA BYRD, JANY Ahn Ot R06.02 SHORTNESS OF BREATH 06/02/2016 MINA BYRD, JANY Ahn Ot Z87.891 PERSONAL HISTORY OF NICOTINE DEPENDENCE 07/19/2016 BRIGETTE BYRD, MICHAEL Lux Ot 466.0 ACUTE BRONCHITIS 07/19/2016 SAMUEL KEITH STRATEGIC PLANNER Ot 625.9 FEM GENITAL SYMPTOMS NOS 07/19/2016 SAMUEL KEITH STRATEGIC PLANNER Ot V72.31 ROUTINE GYNECOLOGICAL EXAMINATION 07/19/2016 SAMUEL KEITH STRATEGIC PLANNER Ot V76.12 OTH SCREEN MAMMO-MALIGN NEOPLASM OF NOE 07/19/2016 SAMUEL KEITH STRATEGIC PLANNER Ot 793.80 UNSPEC ABNORMAL MAMMOGRAM 07/19/2016 SAMUEL KEITH STRATEGIC PLANNER Ot 244.9 HYPOTHYROIDISM NOS 07/19/2016 SAMUEL KEITH STRATEGIC PLANNER Ot 569.3 RECTAL ANAL HEMORRHAGE 07/19/2016 MARY BYRD, SHEYLA Ot V72.84 EXAM PRE-OPERATIVE NOS 07/19/2016 ESTEFANI BYRD, LILIANA Ot 154.1 MALIGNANT NEOPL RECTUM 07/19/2016 SHEYLA HERNANDEZ MD Ot C20 MALIGNANT NEOPLASM OF RECTUM 07/19/2016 SHEYLA HERNANDEZ MD Ot Z01.818 ENCOUNTER FOR OTHER PREPROCEDURAL EXAMIN 07/19/2016 SCOTT PRECIADO STRATEGIC PLANNER Ot C20 MALIGNANT NEOPLASM OF RECTUM 07/19/2016 CHRIS ROSE APRN Ot K59.09 OTHER CONSTIPATION 07/19/2016 SCOTT PRECIADO STRATEGIC PLANNER Ot C20 MALIGNANT NEOPLASM OF RECTUM 07/19/2016 SCOTT PRECIADO STRATEGIC PLANNER Ot E03.9 HYPOTHYROIDISM, UNSPECIFIED 07/19/2016 SCOTT PRECIADO STRATEGIC PLANNER Ot J44.9 CHRONIC OBSTRUCTIVE PULMONARY DISEASE, U 07/19/2016 SCOTT PRECIADO STRATEGIC PLANNER Ot Z79.899 OTHER DETENTION (CURRENT) DRUG THERAPY 07/19/2016 SCOTT PRECIADO STRATEGIC PLANNER Ot Z93.3 COLOSTOMY STATUS 07/19/2016 LILIANA JARA MD Ot C20 MALIGNANT NEOPLASM OF RECTUM 07/19/2016 LILIANA JARA MD Ot R94.5 ABNORMAL RESULTS OF LIVER FUNCTION STUDI 07/19/2016 LILIANA JARA MD Ot C20 MALIGNANT NEOPLASM OF RECTUM 07/19/2016 LILIANA JARA MD Ot E03.9 HYPOTHYROIDISM, UNSPECIFIED 07/19/2016 LILIANA JARA MD, Ot J44.9 CHRONIC OBSTRUCTIVE PULMONARY DISEASE, U 07/19/2016 LILIANA JARA MD Ot Z45.2 ENCOUNTER FOR ADJUSTMENT AND MANAGEMENT 07/19/2016 LILIANA JARA MD Ot Z79.899 OTHER RELIGIOUS ACTIVITIES DIRECTOR (CURRENT) DRUG THERAPY 07/19/2016 LILIANA JARA MD, Ot Z93.3 COLOSTOMY STATUS 07/19/2016 CHRIS ROSE APRN Ot Z00.00 ENCNTR FOR GENERAL ADULT MEDICAL EXAM W/ 07/19/2016 CONRAD MUÑOZ MD Ot B34.9 VIRAL INFECTION, UNSPECIFIED 07/19/2016 CONRAD MUÑOZ MD, Ot J44.9 CHRONIC OBSTRUCTIVE PULMONARY DISEASE, U 07/19/2016 CONRAD MUÑOZ MD Ot R10.84 GENERALIZED ABDOMINAL PAIN 07/19/2016 CONRAD MUÑOZ MD Ot R11.2 NAUSEA WITH VOMITING, UNSPECIFIED 07/19/2016 CONRAD MUÑOZ MD Ot R19.7 DIARRHEA, UNSPECIFIED 07/19/2016 CONRAD MUÑOZ MD Ot Z85.038 PERSONAL HISTORY OF MALIGNANT NEOPLASM O 07/19/2016 CONRAD MUÑOZ MD Ot Z93.3 COLOSTOMY STATUS 07/20/2016 CONRAD MUÑOZ MD, Ot B34.9 VIRAL INFECTION, UNSPECIFIED 07/20/2016 OCNRAD MUÑOZ MD, Ot J44.9 CHRONIC OBSTRUCTIVE PULMONARY DISEASE, U 07/20/2016 CONRAD MUÑOZ MD Ot R10.84 GENERALIZED ABDOMINAL PAIN 07/20/2016 CONRAD MUÑOZ MD Ot R11.2 NAUSEA WITH VOMITING, UNSPECIFIED 07/20/2016 CONRAD MUÑOZ MD Ot R19.7 DIARRHEA, UNSPECIFIED 07/20/2016 CONRAD MUÑOZ MD Ot Z85.038 PERSONAL HISTORY OF MALIGNANT NEOPLASM O 07/20/2016 CONRAD MUÑOZ MD Ot Z93.3 COLOSTOMY STATUS 07/25/2016 CONRAD MUÑOZ MD Ot B34.9 VIRAL INFECTION, UNSPECIFIED 07/25/2016 CONRAD MUÑOZ MD Ot J44.9 CHRONIC OBSTRUCTIVE PULMONARY DISEASE, U 07/25/2016 CONRAD MUÑOZ MD Ot R10.84 GENERALIZED ABDOMINAL PAIN 07/25/2016 CONRAD MUÑOZ MD Ot R11.2 NAUSEA WITH VOMITING, UNSPECIFIED 07/25/2016 CONRAD MUÑOZ MD Ot R19.7 DIARRHEA, UNSPECIFIED 07/25/2016 CONRAD MUÑOZ MD Ot Z85.038 PERSONAL HISTORY OF MALIGNANT NEOPLASM O 07/25/2016 CONRAD MUÑOZ MD Ot Z93.3 COLOSTOMY STATUS 08/02/2016 LILIANA JARA MD Ot C20 MALIGNANT NEOPLASM OF RECTUM 08/02/2016 LILIANA JARA MD Ot E03.9 HYPOTHYROIDISM, UNSPECIFIED 08/02/2016 LILIANA JARA MD, Ot J44.9 CHRONIC OBSTRUCTIVE PULMONARY DISEASE, U 08/02/2016 LILIANA JARA MD Ot Z45.2 ENCOUNTER FOR ADJUSTMENT AND MANAGEMENT 08/02/2016 LILIANA JARA MD Ot Z79.899 OTHER RELIGIOUS ACTIVITIES DIRECTOR (CURRENT) DRUG THERAPY 08/02/2016 LILIANA JARA MD Ot Z93.3 COLOSTOMY STATUS 08/20/2016 LILIANA JARA MD, Ot C20 MALIGNANT NEOPLASM OF RECTUM 08/20/2016 LILIANA JARA MD, Ot E03.9 HYPOTHYROIDISM, UNSPECIFIED 08/20/2016 LILIANA JARA MD, Ot J44.9 CHRONIC OBSTRUCTIVE PULMONARY DISEASE, U 08/20/2016 LILIANA JARA MD Ot Z45.2 ENCOUNTER FOR ADJUSTMENT AND MANAGEMENT 08/20/2016 LILIANA JARA MD, Ot Z79.899 OTHER RELIGIOUS ACTIVITIES DIRECTOR (CURRENT) DRUG THERAPY 08/20/2016 LILIANA JAAR MD Ot Z93.3 COLOSTOMY STATUS 11/17/2016 LILIANA JARA MD Ot C20 MALIGNANT NEOPLASM OF RECTUM 11/17/2016 LILIANA JARA MD Ot E03.9 HYPOTHYROIDISM, UNSPECIFIED 11/17/2016 LILIANA JARA MD Ot J44.9 CHRONIC OBSTRUCTIVE PULMONARY DISEASE, U 11/17/2016 LILIANA JARA MD Ot Z45.2 ENCOUNTER FOR ADJUSTMENT AND MANAGEMENT 11/17/2016 LILIANA JARA MD Ot Z79.899 OTHER RELIGIOUS ACTIVITIES DIRECTOR (CURRENT) DRUG THERAPY 11/17/2016 LILIANA JARA MD Ot Z93.3 COLOSTOMY STATUS 11/26/2016 LILIANA JARA MD, Ot C20 MALIGNANT NEOPLASM OF RECTUM 11/26/2016 LILIANA JARA MD Ot E03.9 HYPOTHYROIDISM, UNSPECIFIED 11/26/2016 LILIANA JARA MD, Ot J44.9 CHRONIC OBSTRUCTIVE PULMONARY DISEASE, U 11/26/2016 LILIANA JARA MD, Ot Z45.2 ENCOUNTER FOR ADJUSTMENT AND MANAGEMENT 11/26/2016 LILIANA JARA MD Ot Z79.899 OTHER RELIGIOUS ACTIVITIES DIRECTOR (CURRENT) DRUG THERAPY 11/26/2016 LILIANA JARA MD Ot Z93.3 COLOSTOMY STATUS 12/01/2016 LILIANA JARA MD, Ot C20 MALIGNANT NEOPLASM OF RECTUM 12/01/2016 LILIANA JARA MD Ot E03.9 HYPOTHYROIDISM, UNSPECIFIED 12/01/2016 LILIANA JARA MD, Ot J44.9 CHRONIC OBSTRUCTIVE PULMONARY DISEASE, U 12/01/2016 LILIANA JARA MD, Ot Z45.2 ENCOUNTER FOR ADJUSTMENT AND MANAGEMENT 12/01/2016 LILIANA JARA MD Ot Z79.899 OTHER RELIGIOUS ACTIVITIES DIRECTOR (CURRENT) DRUG THERAPY 12/01/2016 LILIANA JARA MD Ot Z93.3 COLOSTOMY STATUS 01/08/2017 LILIANA JARA MD Ot C20 MALIGNANT NEOPLASM OF RECTUM 01/08/2017 LILIANA JARA MD Ot E03.9 HYPOTHYROIDISM, UNSPECIFIED 01/08/2017 LILIANA JARA MD Ot J44.9 CHRONIC OBSTRUCTIVE PULMONARY DISEASE, U 01/08/2017 LILIANA JARA MD Ot Z79.899 OTHER DETENTION (CURRENT) DRUG THERAPY 01/08/2017 LILIANA JARA MD Ot Z93.3 COLOSTOMY STATUS 01/25/2017 BRIGETTE BYRD, MICHAEL Lux Ot 466.0 ACUTE BRONCHITIS 01/25/2017 SAGARSAMUEL STRATEGIC PLANNER Ot 625.9 FEM GENITAL SYMPTOMS NOS 01/25/2017 SAGARSAMUEL STRATEGIC PLANNER Ot V72.31 ROUTINE GYNECOLOGICAL EXAMINATION 01/25/2017 SAMUEL KEITH STRATEGIC PLANNER Ot V76.12 OTH SCREEN MAMMO-MALIGN NEOPLASM OF NOE 01/25/2017 SAMUEL KEITH STRATEGIC PLANNER Ot 793.80 UNSPEC ABNORMAL MAMMOGRAM 01/25/2017 SAMUEL KEITH STRATEGIC PLANNER Ot 244.9 HYPOTHYROIDISM NOS 01/25/2017 SAGARSAMUEL STRATEGIC PLANNER Ot 569.3 RECTAL ANAL HEMORRHAGE 01/25/2017 MARY BYRD, SHEYLA Ot V72.84 EXAM PRE-OPERATIVE NOS 01/25/2017 LILIANA JARA MD Ot 154.1 MALIGNANT NEOPL RECTUM 01/25/2017 SHEYLA HERNANDEZ MD, Ot C20 MALIGNANT NEOPLASM OF RECTUM 01/25/2017 SHEYLA HERNANDEZ MD Ot Z01.818 ENCOUNTER FOR OTHER PREPROCEDURAL EXAMIN 01/25/2017 SCOTT PRECIADOP Ot C20 MALIGNANT NEOPLASM OF RECTUM 01/25/2017 CHRIS ROSE APRN Ot K59.09 OTHER CONSTIPATION 01/25/2017 SCOTT PRECIADOP Ot C20 MALIGNANT NEOPLASM OF RECTUM 01/25/2017 SCOTT PRECIADOP Ot E03.9 HYPOTHYROIDISM, UNSPECIFIED 01/25/2017 SCTOT PRECIADO Ot J44.9 CHRONIC OBSTRUCTIVE PULMONARY DISEASE, U 01/25/2017 SCOTT PRECIADOP Ot Z79.899 OTHER DETENTION (CURRENT) DRUG THERAPY 01/25/2017 SCOTT PRECIADOP Ot Z93.3 COLOSTOMY STATUS 01/25/2017 LILIANA JARA MD Ot C20 MALIGNANT NEOPLASM OF RECTUM 01/25/2017 LILIANA JARA MD Ot R94.5 ABNORMAL RESULTS OF LIVER FUNCTION STUDI 01/25/2017 CHRIS ROSE METAL ENGRAVER Ot Z00.00 ENCNTR FOR GENERAL ADULT MEDICAL EXAM W/ 01/26/2017 LILIANA JARA MD Ot C20 MALIGNANT NEOPLASM OF RECTUM 01/26/2017 LILIANA JARA MD Ot E03.9 HYPOTHYROIDISM, UNSPECIFIED 01/26/2017 LILIANA JARA MD Ot J44.9 CHRONIC OBSTRUCTIVE PULMONARY DISEASE, U 01/26/2017 LILIANA JARA MD, Ot Z45.2 ENCOUNTER FOR ADJUSTMENT AND MANAGEMENT 01/26/2017 LILIANA JARA MD Ot Z79.899 OTHER RELIGIOUS ACTIVITIES DIRECTOR (CURRENT) DRUG THERAPY 01/26/2017 LILIANA JARA MD Ot Z93.3 COLOSTOMY STATUS 04/25/2017 LILIANA JARA MD, Ot MALIGNANT NEOPLASM OF RECTUM 04/25/2017 LILIANA JARA MD, Ot E03.9 HYPOTHYROIDISM, UNSPECIFIED 04/25/2017 LILIANA JARA MD, Ot J44.9 CHRONIC OBSTRUCTIVE PULMONARY DISEASE, U 04/25/2017 LILIANA JARA MD, Ot Z45.2 ENCOUNTER FOR ADJUSTMENT AND MANAGEMENT 04/25/2017 LILIANA JARA MD, Ot Z79.899 OTHER RELIGIOUS ACTIVITIES DIRECTOR (CURRENT) DRUG THERAPY 04/25/2017 LILIANA JARA MD, Ot Z93.3 COLOSTOMY STATUS 04/26/2017 LILIANA JARA MD, Ot MALIGNANT NEOPLASM OF RECTUM 04/26/2017 LILIANA JARA MD Ot E03.9 HYPOTHYROIDISM, UNSPECIFIED 04/26/2017 LILIANA JARA MD, Ot J44.9 CHRONIC OBSTRUCTIVE PULMONARY DISEASE, U 04/26/2017 LILIANA JARA MD, Ot Z45.2 ENCOUNTER FOR ADJUSTMENT AND MANAGEMENT 04/26/2017 LILIANA JARA MD Ot Z79.899 OTHER RELIGIOUS ACTIVITIES DIRECTOR (CURRENT) DRUG THERAPY 04/26/2017 LILIANA JARA MD Ot Z93.3 COLOSTOMY STATUS 05/11/2017 LILIANA JARA MD, Ot C20 MALIGNANT NEOPLASM OF RECTUM 05/11/2017 LILIANA JARA MD Ot E03.9 HYPOTHYROIDISM, UNSPECIFIED 05/11/2017 LILIANA JARA MD, Ot J44.9 CHRONIC OBSTRUCTIVE PULMONARY DISEASE, U 05/11/2017 LILIANA JARA MD, Ot Z45.2 ENCOUNTER FOR ADJUSTMENT AND MANAGEMENT 05/11/2017 LILIANA JARA MD Ot Z79.899 OTHER DETENTION (CURRENT) DRUG THERAPY 05/11/2017 LILIANA JARA MD Ot Z93.3 COLOSTOMY STATUS Procedures There is no data. Results Test Result Range Automated blood complete blood count (hemogram) panel - 05/24/16 17:52 Blood leukocytes automated count (number/volume) 4.4 10*3/uL 4.3-11.0 Blood erythrocytes automated count (number/volume) 4.91 10*6/uL 4.35-5.85 Venous blood hemoglobin measurement (mass/volume) 14.5 g/dL 11.5-16.0 Blood hematocrit (volume fraction) 43 % 35-52 Automated erythrocyte mean corpuscular volume 88 [foz_us] 80-99 Automated erythrocyte mean corpuscular hemoglobin (mass per erythrocyte) 30 pg 25-34 Automated erythrocyte mean corpuscular hemoglobin concentration measurement ( mass/volume) 34 g/dL 32-36 Automated erythrocyte distribution width ratio 13.2 % 10.0-14.5 Automated blood platelet count (count/volume) 209 10*3/uL 130-400 Automated blood platelet mean volume measurement 10.9 [foz_us] 7.4-10.4 Comprehensive metabolic panel - 05/24/16 17:52 Serum or plasma sodium measurement (moles/volume) 139 mmol/L 135-145 Serum or plasma potassium measurement (moles/volume) 4.3 mmol/L 3.6-5.0 Serum or plasma chloride measurement (moles/volume) 99 mmol/L 98-107 Carbon dioxide 28 mmol/L 21-32 Serum or plasma anion gap determination (moles/volume) 12 mmol/L 5-14 Serum or plasma urea nitrogen measurement (mass/volume) 13 mg/dL 7-18 Serum or plasma creatinine measurement (mass/volume) 0.85 mg/dL 0.60-1.30 Serum or plasma urea nitrogen/creatinine mass ratio 15 NRG Serum or plasma creatinine measurement with calculation of estimated glomerular filtration rate > NRG Serum or plasma glucose measurement (mass/volume) 97 mg/dL 70-105 Serum or plasma calcium measurement (mass/volume) 9.3 mg/dL 8.5-10.1 Serum or plasma total bilirubin measurement (mass/volume) 0.4 mg/dL 0.1-1.0 Serum or plasma alkaline phosphatase measurement (enzymatic activity/volume) 105 U/L 40-136 Serum or plasma aspartate aminotransferase measurement (enzymatic activity/ volume) 24 U/L 5-34 Serum or plasma alanine aminotransferase measurement (enzymatic activity/volume ) 57 U/L 0-55 Serum or plasma protein measurement (mass/volume) 7.3 g/dL 6.4-8.2 Serum or plasma albumin measurement (mass/volume) 4.3 g/dL 3.2-4.5 Lipid 1996 panel - 05/24/16 17:52 Serum or plasma triglyceride measurement (mass/volume) 76 mg/dL <150 Serum or plasma cholesterol measurement (mass/volume) 205 mg/dL < 200 Serum or plasma cholesterol in HDL measurement (mass/volume) 81 mg/ dL 40-60 Cholesterol in LDL [mass/volume] in serum or plasma by direct assay 102 mg/dL 1-129 Serum or plasma cholesterol in VLDL measurement (mass/volume) 15 mg/ dL 5-40 THYROID STIMULATING HORMONE - 05/24/16 17:52 THYROID STIMULATING HORMONE 0.84 u[iU]/mL 0.35-4.94 Sputum Gram stain - 05/24/16 17:55 GRAM STAIN SPUTUM AND MIXED BACTERIAL HAI NRG Bacterial sputum culture - 05/24/16 17:55 FREE TEXT EXTERNAL SENSITIVITY REPORTED 05/27/16 8:10 NRG QUANTITY OF GROWTH Scant Growth NRG FREE TEXT ENTRY 3 PLUS NORMAL HAI NRG Bacterial sputum culture [id number] NRG Bacterial susceptibility panel - 05/24/16 17:55 Gentamicin susceptibility test by minimum inhibitory concentration < = NRG Trimethoprim/sulfamethoxazole susceptibility test by minimum inhibitoryconcentration <= NRG Tobramycin susceptibility test by minimum inhibitory concentration < = NRG Cefazolin susceptibility test by minimum inhibitory concentration > = NRG Piperacillin/tazobactam susceptibility test by minimum inhibitory concentration <= NRG Ciprofloxacin susceptibility test by minimum inhibitory concentration <= NRG Meropenem susceptibility test by minimum inhibitory concentration < = NRG Aztreonam susceptibility test by minimum inhibitory concentration < = NRG Cefepime susceptibility test by minimum inhibitory concentration <= NRG Bacterial susceptibility panel - 05/24/16 17:55 Gentamicin susceptibility test by minimum inhibitory concentration < = NRG Tobramycin susceptibility test by minimum inhibitory concentration < = NRG Piperacillin/tazobactam susceptibility test by minimum inhibitory concentration <= NRG Ciprofloxacin susceptibility test by minimum inhibitory concentration <= NRG Meropenem susceptibility test by minimum inhibitory concentration < = NRG Cefepime susceptibility test by minimum inhibitory concentration <= NRG Complete blood count (CBC) with automated white blood cell (WBC) differential - 05/31/16 19:10 Blood leukocytes automated count (number/volume) 8.7 10*3/uL 4.3-11.0 Blood erythrocytes automated count (number/volume) 5.40 10*6/uL 4.35-5.85 Venous blood hemoglobin measurement (mass/volume) 16.0 g/dL 11.5-16.0 Blood hematocrit (volume fraction) 47 % 35-52 Automated erythrocyte mean corpuscular volume 87 [foz_us] 80-99 Automated erythrocyte mean corpuscular hemoglobin (mass per erythrocyte) 30 pg 25-34 Automated erythrocyte mean corpuscular hemoglobin concentration measurement ( mass/volume) 34 g/dL 32-36 Automated erythrocyte distribution width ratio 13.0 % 10.0-14.5 Automated blood platelet count (count/volume) 328 10*3/uL 130-400 Automated blood platelet mean volume measurement 10.9 [foz_us] 7.4-10.4 Automated blood neutrophils/100 leukocytes 81 % 42-75 Automated blood lymphocytes/100 leukocytes 10 % 12-44 Blood monocytes/100 leukocytes 8 % 0-12 Automated blood eosinophils/100 leukocytes 1 % 0-10 Automated blood basophils/100 leukocytes 1 % 0-10 Blood neutrophils automated count (number/volume) 7.0 10*3 1.8-7.8 Blood lymphocytes automated count (number/volume) 0.8 10*3 1.0-4.0 Blood monocytes automated count (number/volume) 0.7 10*3 0.0-1.0 Automated eosinophil count 0.1 10*3/uL 0.0-0.3 Automated blood basophil count (count/volume) 0.1 10*3/uL 0.0-0.1 Complete urinalysis with reflex to culture - 05/31/16 19:10 Urine color determination PALE YELLOW NRG Urine clarity determination CLEAR NRG Urine pH measurement by test strip 7 5-9 Specific gravity of urine by test strip 1.005 1.016- 1.022 Urine protein assay by test strip, semi-quantitative NEGATIVE NEGATIVE Urine glucose detection by automated test strip NEGATIVE NEGATIVE Erythrocytes detection in urine sediment by light microscopy NEGATIVE NEGATIVE Urine ketones detection by automated test strip NEGATIVE NEGATIVE Urine nitrite detection by test strip NEGATIVE NEGATIVE Urine total bilirubin detection by test strip NEGATIVE NEGATIVE Urine urobilinogen measurement by automated test strip (mass/volume) NORMAL NORMAL Urine leukocyte esterase detection by dipstick 2+ NEGATIVE Automated urine sediment erythrocyte count by microscopy (number/high power field) NONE NRG Automated urine sediment leukocyte count by microscopy (number/high power field ) [HPF] NRG Bacteria detection in urine sediment by light microscopy NONE NRG Squamous epithelial cells detection in urine sediment by light microscopy 0-2 NRG Crystals detection in urine sediment by light microscopy NONE NRG Casts detection in urine sediment by light microscopy NONE NRG Mucus detection in urine sediment by light microscopy NEGATIVE NRG Complete urinalysis with reflex to culture NO NRG PT panel in platelet poor plasma by coagulation assay - 05/31/16 19:10 Prothrombin time (PT) in platelet poor plasma by coagulation assay 11.3 s 12.2-14.7 INR in platelet poor plasma or blood by coagulation assay 0.9 0.8-1.4 Activated partial thromboplastin time (aPTT) in platelet poor plasma bycoagulation assay - 05/31/16 19:10 Activated partial thromboplastin time (aPTT) in platelet poor plasma bycoagulation assay 26 s 24-35 Blood lactic acid measurement (moles/volume) - 05/31/16 19:10 Blood lactic acid measurement (moles/volume) 1.0 mmol/L 0.5-2.0 Comprehensive metabolic panel - 05/31/16 19:10 Serum or plasma sodium measurement (moles/volume) 139 mmol/L 135-145 Serum or plasma potassium measurement (moles/volume) 4.1 mmol/L 3.6-5.0 Serum or plasma chloride measurement (moles/volume) 98 mmol/L 98-107 Carbon dioxide 27 mmol/L 21-32 Serum or plasma anion gap determination (moles/volume) 14 mmol/L 5-14 Serum or plasma urea nitrogen measurement (mass/volume) 15 mg/dL 7-18 Serum or plasma creatinine measurement (mass/volume) 0.95 mg/dL 0.60-1.30 Serum or plasma urea nitrogen/creatinine mass ratio 16 NRG Serum or plasma creatinine measurement with calculation of estimated glomerular filtration rate > NRG Serum or plasma glucose measurement (mass/volume) 103 mg/dL 70-105 Serum or plasma calcium measurement (mass/volume) 9.7 mg/dL 8.5-10.1 Serum or plasma total bilirubin measurement (mass/volume) 0.4 mg/dL 0.1-1.0 Serum or plasma alkaline phosphatase measurement (enzymatic activity/volume) 99 U/L 40-136 Serum or plasma aspartate aminotransferase measurement (enzymatic activity/ volume) 16 U/L 5-34 Serum or plasma alanine aminotransferase measurement (enzymatic activity/volume ) 22 U/L 0-55 Serum or plasma protein measurement (mass/volume) 7.9 g/dL 6.4-8.2 Serum or plasma albumin measurement (mass/volume) 4.7 g/dL 3.2-4.5 Bacterial blood culture - 05/31/16 19:10 Bacterial blood culture [facility] Influenza virus A and B antigen detection - 05/31/16 19:24 FLU RESULT NEGATIVE FOR INFLUENZA A AND B ANTIGENS BY [facility] Complete blood count (CBC) with automated white blood cell (WBC) differential - 07/19/16 14:30 Blood leukocytes automated count (number/volume) 10.7 10*3/uL 4.3-11.0 Blood erythrocytes automated count (number/volume) 4.59 10*6/uL 4.35-5.85 Venous blood hemoglobin measurement (mass/volume) 13.3 g/dL 11.5-16.0 Blood hematocrit (volume fraction) 40 % 35-52 Automated erythrocyte mean corpuscular volume 88 [foz_us] 80-99 Automated erythrocyte mean corpuscular hemoglobin (mass per erythrocyte) 29 pg 25-34 Automated erythrocyte mean corpuscular hemoglobin concentration measurement ( mass/volume) 33 g/dL 32-36 Automated erythrocyte distribution width ratio 12.8 % 10.0-14.5 Automated blood platelet count (count/volume) 182 10*3/uL 130-400 Automated blood platelet mean volume measurement 11.1 [foz_us] 7.4-10.4 Automated blood neutrophils/100 leukocytes 90 % 42-75 Automated blood lymphocytes/100 leukocytes 3 % 12-44 Blood monocytes/100 leukocytes 7 % 0-12 Automated blood eosinophils/100 leukocytes 0 % 0-10 Automated blood basophils/100 leukocytes 0 % 0-10 Blood neutrophils automated count (number/volume) 9.6 10*3 1.8-7.8 Blood lymphocytes automated count (number/volume) 0.4 10*3 1.0-4.0 Blood monocytes automated count (number/volume) 0.8 10*3 0.0-1.0 Automated eosinophil count 0.0 10*3/uL 0.0-0.3 Automated blood basophil count (count/volume) 0.0 10*3/uL 0.0-0.1 Blood manual differential performed detection - 07/19/16 14:30 Blood monocytes/100 leukocytes 5 % NRG Manual blood segmented neutrophils/100 leukocytes 77 % NRG Blood band neutrophils/100 leukocytes 14 % NRG Manual blood lymphocytes/100 leukocytes 4 % NRG Manual eosinophils/100 leukocytes in nose 0 % NRG Manual blood basophils/100 leukocytes 0 % NRG Blood erythrocyte morphology finding identification NORMAL NRG Blood lactic acid measurement (moles/volume) - 07/19/16 14:30 Blood lactic acid measurement (moles/volume) 0.88 mmol/L 0.50-2.00 Comprehensive metabolic panel - 07/19/16 14:30 Serum or plasma sodium measurement (moles/volume) 135 mmol/L 135-145 Serum or plasma potassium measurement (moles/volume) 3.8 mmol/L 3.6-5.0 Serum or plasma chloride measurement (moles/volume) 100 mmol/L 98-107 Carbon dioxide 26 mmol/L 21-32 Serum or plasma anion gap determination (moles/volume) 9 mmol/L 5-14 Serum or plasma urea nitrogen measurement (mass/volume) 10 mg/dL 7-18 Serum or plasma creatinine measurement (mass/volume) 0.79 mg/dL 0.60-1.30 Serum or plasma urea nitrogen/creatinine mass ratio 13 NRG Serum or plasma creatinine measurement with calculation of estimated glomerular filtration rate > NRG Serum or plasma glucose measurement (mass/volume) 102 mg/dL 70-105 Serum or plasma calcium measurement (mass/volume) 9.2 mg/dL 8.5-10.1 Serum or plasma total bilirubin measurement (mass/volume) 0.7 mg/dL 0.1-1.0 Serum or plasma alkaline phosphatase measurement (enzymatic activity/volume) 84 U/L 40-136 Serum or plasma aspartate aminotransferase measurement (enzymatic activity/ volume) 53 U/L 5-34 Serum or plasma alanine aminotransferase measurement (enzymatic activity/volume ) 58 U/L 0-55 Serum or plasma protein measurement (mass/volume) 6.7 g/dL 6.4-8.2 Serum or plasma albumin measurement (mass/volume) 4.0 g/dL 3.2-4.5 Serum or plasma creatine kinase measurement (enzymatic activity/volume) - 07/19 14:30 Serum or plasma creatine kinase measurement (enzymatic activity/volume) 136 U/L 29-168 Complete urinalysis with reflex to culture - 07/19/16 14:58 Urine color determination YELLOW NRG Urine clarity determination CLEAR NRG Urine pH measurement by test strip 7 5-9 Specific gravity of urine by test strip 1.005 1.016- 1.022 Urine protein assay by test strip, semi-quantitative NEGATIVE NEGATIVE Urine glucose detection by automated test strip NEGATIVE NEGATIVE Erythrocytes detection in urine sediment by light microscopy NEGATIVE NEGATIVE Urine ketones detection by automated test strip NEGATIVE NEGATIVE Urine nitrite detection by test strip NEGATIVE NEGATIVE Urine total bilirubin detection by test strip NEGATIVE NEGATIVE Urine urobilinogen measurement by automated test strip (mass/volume) NORMAL NORMAL Urine leukocyte esterase detection by dipstick 1+ NEGATIVE Automated urine sediment erythrocyte count by microscopy (number/high power field) NONE NRG Automated urine sediment leukocyte count by microscopy (number/high power field ) RARE NRG Bacteria detection in urine sediment by light microscopy NEGATIVE NRG Squamous epithelial cells detection in urine sediment by light microscopy RARE NRG Crystals detection in urine sediment by light microscopy NONE NRG Casts detection in urine sediment by light microscopy NONE NRG Mucus detection in urine sediment by light microscopy NEGATIVE NRG Complete urinalysis with reflex to culture NO NRG Influenza virus A and B antigen detection - 07/19/16 15:31 FLU RESULT NEGATIVE FOR INFLUENZA A AND B ANTIGENS BY [place] NRG Encounters ACCT No. Visit Date/Time Discharge Status Pt. Type Provider Facility Loc./Unit Complaint [id number] 05/10/2017 15:35:00 05/10/2017 23:59:59 CLS Outpatient LILIANA JARA MD [facility] ONC [id number] 04/12/2017 15:45:00 04/25/2017 00:01:00 DIS Outpatient LILIANA JARA MD [facility] ONC [id number] 11/30/2016 14:05:00 01/08/2017 00:01:00 DIS Outpatient LILIANA JARA MD [facility] ONC [id number] 10/19/2016 16:58:00 11/17/2016 00:01:00 DIS Outpatient LILIANA JARA MD [facility] ONC [id number] 07/13/2016 13:49:00 08/02/2016 00:01:00 DIS Outpatient LILIANA JARA MD [facility] ONC [id number] 07/19/2016 13:47:00 07/19/2016 17:07:00 DIS Emergency TONI BYRD, CONRAD Lux [facility] ER PAIN ALL OVER/ VOMITING SRIKANTHKEY [id number] 05/31/2016 18:33:00 05/31/2016 20:18:00 DIS Emergency MINA BYRD, JANY Ahn [facility] ER SOA [id number] 05/24/2016 17:40:00 05/24/2016 23:59:59 CLS Outpatient CHRIS ROSE APRN [facility] LAB ADULT HEALTH EXAMINATION,COUGH,FATIGUE [id number] 03/16/2016 12:46:00 05/03/2016 00:01:00 DIS Outpatient LILIANA JARA MD [facility] ONC [id number] 12/23/2015 14:00:00 01/19/2016 08:32:00 DIS Outpatient LILIANA JARA MD [facility] ONC [id number] 12/01/2015 08:42:00 12/01/2015 23:59:59 CLS Outpatient LILIANA JARA MD [facility] RAD RECTAL CANCER, ABNORMAL RESULTS OF LIVER FUNCTION [id number] 10/07/2015 12:57:00 10/13/2015 00:01:00 DIS Outpatient LILIANA JARA MD [facility] ONC [id number] 07/15/2015 12:50:00 07/15/2015 23:59:59 CLS Outpatient SCOTT PRECIADO [facility] ONC [id number] 07/09/2015 14:47:00 07/14/2015 00:01:00 DIS Outpatient LILIANA JARA MD [facility] ONC [id number] 06/05/2015 13:46:00 06/05/2015 23:59:59 CLS Outpatient CHRIS ROSE APRN [facility] RAD CONSTIPATION [id number] 05/11/2015 12:07:00 05/11/2015 15:16:00 DIS Emergency ZENAIDA BYRD, IRENE Murguia [facility] ER R AND L KNEE/LEG PAIN [id number] 03/14/2015 16:26:00 04/10/2015 00:01:00 DIS Outpatient LILIANA JARA MD [facility] ONC [id number] 01/20/2015 13:34:00 01/20/2015 23:59:59 CLS Outpatient SCOTT PRECIADO [facility] ONC [id number] 01/16/2015 13:08:00 01/16/2015 16:05:00 DIS Outpatient SHEYLA HERNANDEZ MD [facility] SD RECTAL CA [id number] 01/09/2015 05:32:00 01/09/2015 23:59:59 CLS Outpatient SHEYLA HERNANDEZ MD [facility] PREOP RECTAL CA [id number] 12/30/2014 15:08:00 01/08/2015 00:01:00 DIS Outpatient LILIANA JARA MD [facility] ONC [id number] 01/07/2015 12:05:00 01/07/2015 23:59:59 CLS Outpatient LILIANA JARA MD [facility] RAD STAGING OF RECTAL CA [id number] 09/27/2014 10:07:00 09/27/2014 13:45:00 DIS Outpatient SHEYLA HERNANDEZ MD [facility] SDC RECTAL BLEEDING [id number] 09/24/2014 09:39:00 09/24/2014 23:59:59 CLS Outpatient SHEYLA HERNANDEZ MD [facility] PREOP RECTAL BLEEDING [id number] 09/10/2014 17:26:00 09/10/2014 23:59:59 CLS Outpatient SAMUEL KEITH [facility] LAB RECTAL BLEEDING,BRUISING, HYPOTHYROIDISM [id number] 09/05/2013 08:24:00 09/05/2013 23:59:59 CLS Outpatient SAMUEL KEITH [facility] RAD ABNORMAL MAMMO [id number] 08/21/2013 14:30:00 08/21/2013 23:59:59 CLS Outpatient SAMUEL KEITHP [facility] RAD SCREENING [id number] 08/21/2013 13:37:00 08/21/2013 23:59:59 CLS Outpatient SAMUEL KEITH [facility] RAD PELVIC PAIN [id number] 04/17/2013 16:08:00 04/23/2013 14:02:00 DIS Inpatient MICHAEL MACHUCA MD [facility] 4TH RESPIRATORY DISTRESS; PNUEMONIA [id number] 01/23/2013 16:02:00 01/23/2013 23:59:59 CLS Outpatient MICHAEL MACHUCA MD [facility] LAB COUGH, ACUTE BRONCHITIS [id number] 05/24/2017 13:25:00 Document Registration [id number] 09/10/2014 17:26:00 Document Registration [id number] 09/10/2014 17:26:00 Document Registration [id number] 09/10/2014 17:26:00 Document Registration [id number] 09/10/2014 17:26:00 Document Registration [id number] 12/03/2009 10:15:00 Document Registration
[2017-05-25] MEDS ORDERED: IOHEXOL 350 MG/ML 150 ML (OMNIPAQUE 350) VIAL IV ONE (17:30)
[2017-05-25] MEDS ORDERED: NS 250 ML (IVPB) BAG IV ONE (17:30)
[2017-05-25] MEDS ORDERED: RECEIVED CONTRAST (Hold Metformin) IV SCH (17:30)
[2017-05-25] MEDS ORDERED: LORazepam INJ 2 MG/ML (ATIVAN) VIAL IVP PRN (17:45)
--- NOTE | 2017-05-25 18:22 | Diagnostic Imaging Report ---
PROCEDURE: CT angiography of the chest with contrast. TECHNIQUE: Multiple contiguous axial images were obtained through the chest after uneventful bolus administration of intravenous contrast. Reconstructed CTA MIP acquisitions were also performed. INDICATION: Short of breath. History of colon cancer. FINDINGS: There is obstructive airway disease. There are tree-in-bud type of infiltrates seen in the lower lobes, left greater than right. No mass or alveolar consolidation is seen. There is no effusion or pneumothorax. There is no mediastinal mass or hemorrhage. There is no aortic dissection. There is no pulmonary embolus. IMPRESSION: There are tree-in-bud type of infiltrates consistent with an inflammatory/infectious process. There is no pulmonary embolus. Dictated by: Dictated on workstation # [id number]
[2017-05-25] MEDS: RT-ADVAIR HFA 115/21 MCG PER PUFF IH SCH (20:22)
[2017-05-25] MEDS: CIPROFLOXACIN 500 MG (CIPRO) TABLET PO SCH (20:30)
[2017-05-26] VITALS (25 sets, daily range): BP systolic 106–146; BP diastolic 67–97
[2017-05-26] MEDS: RT-ALBUTEROL/IPRATROPIUM 3 ML (DUONEB) VIAL INH SCH ×12 (00:10→22:30)
--- NOTE | 2017-05-26 03:49 | Pulmonary Progress Note ---
Subjective Time Seen by Provider: 06:20 Subjective/Events-last exam pt currently sleeping. Exam Exam Vital Signs Date Time Temp Pulse Resp B/P (MAP) Pulse Ox O2 Delivery O2 Flow Rate FiO2 05/26/17 02:28 NIV Bilevel 35.00 05/26/17 01:00 85 05/26/17 01:00 85 05/26/17 00:00 98 NIV Bilevel 40 05/25/17 23:00 104 26 140/101 (114) 97 NIV Bilevel 50.00 05/25/17 22:18 98 26 98 40.00 05/25/17 22:00 100 27 131/99 (110) 98 NIV Bilevel 50.00 05/25/17 21:00 131 149/105 (120) 95 NIV Bilevel 50.00 05/25/17 20:22 95 22 94 40.00 05/25/17 20:00 98.6 05/25/17 20:00 96 19 152/104 (120) 100 NIV Bilevel 50.00 05/25/17 20:00 98 NIV Bilevel 40 05/25/17 19:07 98 19 94 40.00 05/25/17 19:00 96 05/25/17 19:00 96 05/25/17 19:00 93 25 144/103 (117) 100 NIV Bilevel 50.00 05/25/17 18:04 103 05/25/17 18:00 101 17 135/91 (106) 98 NIV Bilevel 50.00 05/25/17 17:30 109 38 125/103 (110) 100 Nasal Cannula 2.00 05/25/17 17:30 120 26 100 50.00 05/25/17 17:30 NIV Bilevel 50 05/25/17 17:25 97.8 115 37 125/103 (110) 100 NIV Bilevel 50.00 05/25/17 16:49 86 Nasal Cannula 2.00 05/25/17 16:00 97.9 100 20 138/89 (105) 92 Nasal Cannula 2.00 05/25/17 15:13 91 Nasal Cannula 2.00 05/25/17 12:00 98.2 112 20 138/81 (100) 94 Nasal Cannula 2.00 05/25/17 11:39 94 Nasal Cannula 2.00 05/25/17 08:46 93 Nasal Cannula 2.00 05/25/17 08:00 97.6 99 16 139/86 (103) 97 Nasal Cannula 2.00 05/25/17 07:45 Nasal Cannula 2.00 05/25/17 04:11 93 Nasal Cannula 2.00 05/25/17 04:07 98.0 110 17 136/84 (101) 97 Nasal Cannula 2.00 I & O 05/26/17 06:59 Intake Total 1050 ml Output Total 1600 ml Balance -550 ml General Appearance: No Apparent Distress, Anxious, Other (pt is currently sleeping ) Neck: Normal Inspection Respiratory: Decreased Breath Sounds Cardiovascular: Regular Rate, Rhythm, No Edema, No Gallop, No JVD, No Murmur, Normal Peripheral Pulses Capillary Refill: Less Than 3 Seconds Gastrointestinal: non tender, soft Skin: Normal Color, Warm/Dry Results Lab Laboratory Tests 05/25/17 06:30 Assessment/Plan Assessment/Plan COPDAE-- with pseudomonas colonization -Pt is colonized with Pseudomonas. Every sputum culture going back to 2008 shows pseudomonas. She has no fever. She has no leukocytosis even on steroids. -D/C Cefepime -Will continue PO Cipro for now -Solumedrol -- change to prednisone taper -pt may need home oxygen with discharge. -- -oxygen -SVNs anxiety/agitation -After pt called her family doctor she demanded to be placed on Cipro. Dr. Chacko was called and okayed cipro. -Pt was warned about the possible side effect of fluoroquinolones. She still insist on receiving Cipro. -If CXR shows a new developing infiltrate I will change Cipro to Levaquin for better lung penetration. - Risperdal 0.5mg BID -- pt is refusing Hx of rectal cancer s/p colostomy Transfer to 4th floor. Have [facility] evaluate pt. PT is unhappy with her care and she is very hard to treat secondary to her demands and anxiety/psychosis. 233 Clinical Quality Measures DVT/VTE Risk/Contraindication: Risk Factor Score Per Nursin RFS Level Per Nursing on Admit: 3=High TRAE PÉREZ DO May 26, 2017 03:49
[2017-05-26 04:12] LABS: BASOPHILS % (AUTO) 1 % (0-10); EOSINOPHILS % (AUTO) 0 % (0-10); HEMATOCRIT 43 % (35-52); HEMOGLOBIN 13.7 G/DL (11.5-16.0); LYMPHOCYTES # (AUTO) 0.5 X 10^3 (1.0-4.0); LYMPHOCYTES % (AUTO) 6 % (12-44); MEAN CORPUSCULAR HEMOGLOBIN 30 PG (25-34); MEAN CORPUSCULAR HGB CONC 32 G/DL (32-36); MEAN CORPUSCULAR VOLUME 93 FL (80-99); MEAN PLATELET VOLUME 11.1 FL (7.4-10.4); MONOCYTES # (AUTO) 0.5 X 10^3 (0.0-1.0); MONOCYTES % (AUTO) 6 % (0-12); NEUTROPHILS # (AUTO) 7.3 X 10^3 (1.8-7.8); NEUTROPHILS % (AUTO) 88 % (42-75); PLATELET COUNT 270 10^3/uL (130-400); RED BLOOD COUNT 4.57 10^6/uL (4.35-5.85); RED CELL DISTRIBUTION WIDTH 14.3 % (10.0-14.5); WHITE BLOOD COUNT 8.3 10^3/uL (4.3-11.0)
[2017-05-26 04:40] LABS: ALANINE AMINOTRANSFERASE 58 U/L (0-55); ALBUMIN 3.7 GM/DL (3.2-4.5); ALKALINE PHOSPHATASE 75 U/L (40-136); BILIRUBIN,TOTAL 0.3 MG/DL (0.1-1.0); BUN/CREATININE RATIO 32; CALCIUM 9.2 MG/DL (8.5-10.1); CARBON DIOXIDE 32 MMOL/L (21-32); CHLORIDE 94 MMOL/L (98-107); CREATININE SERUM 0.72 MG/DL (0.60-1.30); GFR ESTIMATED > 60; GLUCOSE 118 MG/DL (70-105); SODIUM 141 MMOL/L (135-145); TOTAL PROTEIN 6.5 GM/DL (6.4-8.2)
[2017-05-26] MEDS: LEVOTHYROXINE 50 MCG (LEVOTHROID) TAB PO SCH (05:58)
[2017-05-26] MEDS ORDERED: KCL 20 MEQ TAB (K-DUR) PO SCH (06:00)
[2017-05-26] MEDS ORDERED: MAGNESIUM 1 GM/100 ML IVPB 100 ML IV SCH (06:00)
[2017-05-26] MEDS ORDERED: POTASSIUM CL 10MEQ/50ML IVPB 50 ML IV SCH (06:00)
[2017-05-26] MEDS: CATHETER FLUSH 10 ML SYR IV SCH ×3 (06:06→22:22)
[2017-05-26] MEDS: RT-ADVAIR HFA 115/21 MCG PER PUFF IH SCH ×2 (06:35→18:54)
[2017-05-26] MEDS: ALPRAZolam 1 MG (XANAX) TAB PO SCH ×3 (08:08→21:14)
[2017-05-26] MEDS: CIPROFLOXACIN 500 MG (CIPRO) TABLET PO SCH ×2 (08:08→21:13)
[2017-05-26] MEDS: predniSONE 10 MG TAB PO SCH (08:08)
[2017-05-26] MEDS: ROFLUMILAST 500 MCG TAB (DALIRESP) PO SCH (08:08)
[2017-05-26] MEDS: POLYETHYLENE GLYCOL 17 GM (MIRALAX) PACK PO SCH ×2 (09:45→21:14)
--- NOTE | 2017-05-26 09:50 | Progress Note-Hospitalist ---
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 She reports that over the last 2 or 3 days should become progressively more short of breath. She ultimately came to the emergency room yesterday and was admitted. She reports she is been unaware of fever. She had been started on Tamiflu as her son was diagnosed as having the flu. She noted increased dyspnea on exertion. She reports that today she is modestly improved but still quite short of breath. Progress Notes/Assess & Plan Date Seen 05/26/17 Time Seen by Provider: 09:15 Diagonsis/Assessment & Plan Patient required transfer to ICU yesterday due to tachypnea and wheezing and hypoxemia Required BiPAP use now down to nasal cannula Patient having significant difficulty in brace in the idea she has severe COPD I have reached out to [facility] because this will be a long-term exacerbation of COPD and will need long-term pulmonary expertise Antibiotics maintained Patient denies any pain Bowels have not moved for 3 days and she has a colostomy bag will start MiraLAX No fever, vital signs stable, pleasant, chronically ill, thin, anxious Regular rate and rhythm, wheezing all jose with mild use of accessory muscles No edema Laboratory Tests 05/26/17 03:50 Assessment: Severe COPD with bronchitis requiring biPAP last night Pneumonitis with Pseudomonas Hypoxemia severe on admission Leukocytosis Anxiety Rectal cancer with colostomy Plan: Maintain Cipro IV steroids Nebulizer treatments Oxygen Ambulate Reconcile home meds [facility] referral since I predict 2-3 weeks of exacerbation COPD issues ELO RODRÍGUEZ DO May 26, 2017 09:50
--- OUTSIDE RECORDS SUMMARY | 2017-05-26 09:52 | XMS REPORT | Continuity of Care Document ---
Author Author [facility] Organization [facility] Address Unknown Phone Unavailable Allergies Active Description Code Type Severity Reaction Onset Reported/Identified Relationship to Patient Clinical Status Yes levofloxacin [id number] Drug Allergy Unknown NAUSEA/VOMITING 01/17/2008 Yes moxifloxacin [id number] Drug Allergy Unknown N/V 01/17/2008 Medications There [...] Lux Ot 466.0 09/10/2014 QUICK, SAMUEL Dee VACUUM TESTER CANS Ot 625.9 09/10/2014 QUICK, SAMUEL Dee VACUUM TESTER CANS Ot V72.31 09/10/2014 QUICK, SAMUEL Dee VACUUM TESTER CANS Ot V76.12 09/10/2014 QUICK, SAMUEL Dee VACUUM TESTER CANS Ot 793.80 09/27/2014 MARY BYRD, SHEYLA Ot [...] Lux Ot 466.0 10/09/2014 QUICK, SAMUEL Dee VACUUM TESTER CANS Ot 625.9 10/09/2014 QUICK, SAMUEL Dee VACUUM TESTER CANS Ot V72.31 10/09/2014 QUICK, SAMUEL W VACUUM TESTER CANS Ot V76.12 10/09/2014 QUICK, SAMUEL W VACUUM TESTER CANS Ot 793.80 10/09/2014 QUICK, SAMUEL W VACUUM TESTER CANS Ot 244.9 10/09/2014 QUICK, SAMUEL W VACUUM TESTER CANS Ot 569.3 10/09/2014 MARY BYRD, SHEYLA Ot V72.84 10/22/2014 QUICK, SAMUEL W VACUUM TESTER CANS Ot 625.9 10/22/2014 QUICK, SAMUEL W VACUUM TESTER CANS Ot V72.31 12/31/2014 ESTEFANI BYRD, [facility] Ot 244.9 12/31/2014 ESTEFANI BYRD, [facility] Ot 300.00 12/31/2014 ESTEFANI BYRD, LILIANA Ot 424.0 12/31/2014 ESTEFANI BYRD, LILIANA Ot 496 12/31/2014 ESTEFANI BYRD, LILIANA Ot 564.00 12/31/2014 ESTEFANI BYRD, LILIANA Ot 569.0 12/31/2014 ESTEFANI BYRD, LILIANA Ot 569.3 12/31/2014 ESTEFNAI BYRD, LILIANA Ot 787.91 12/31/2014 ESTEFANI BYRD, [...] Lux Ot 466.0 01/23/2015 QUICK, SAMUEL Dee VACUUM TESTER CANS Ot 625.9 01/23/2015 QUICK, SAMUEL Dee VACUUM TESTER CANS Ot V72.31 01/23/2015 QUICK, SAMUEL Dee VACUUM TESTER CANS Ot V76.12 01/23/2015 QUICK, SAMUEL Dee VACUUM TESTER CANS Ot 793.80 01/23/2015 QUICK, SAMUEL Dee VACUUM TESTER CANS Ot 244.9 01/23/2015 QUICK, SAMUEL Dee VACUUM TESTER CANS Ot 569.3 01/23/2015 MARY BYRD, SHEYLA Ot [...] BYRD, BURNETT-MONIQUE Ot V58.69 01/23/2015 SCOTT PRECIADO VACUUM TESTER CANS Ot C20 02/17/2015 ESTEFANI BYRD, LILIANA Ot [...] Lux Ot 466.0 02/27/2015 QUICK, SAMUEL W VACUUM TESTER CANS Ot 625.9 02/27/2015 QUICK, SAMUEL W VACUUM TESTER CANS Ot V72.31 02/27/2015 QUICK, SAMUEL W VACUUM TESTER CANS Ot V76.12 02/27/2015 QUICK, SAMUEL W VACUUM TESTER CANS Ot 793.80 02/27/2015 QUICK, SAMUEL W VACUUM TESTER CANS Ot 244.9 02/27/2015 QUICK, SAMUEL W VACUUM TESTER CANS Ot 569.3 02/27/2015 MARY BYRD, SHEYLA Ot V72.84 02/27/2015 ESTEFANI BYRD, LEX-MONIQUE Ot 154.1 02/27/2015 MARY BYRD, TAKAAKI Ot C20 02/27/2015 MARY BYRD, TAKSARAY Ot Z01.818 02/27/2015 ESTEFANI BYRD, BURNETT-MONIQUE Ot C20 02/27/2015 ESTEFANI BYRD, BURNET[place]-MONIQUE Ot Z51.0 02/27/2015 SCOTT PRECIADO VACUUM TESTER CANS Ot C20 02/27/2015 ESTEFANI BYRD, BURNETT-MONIQUE Ot C20 02/27/2015 ESTEFANI BYRD, BURNETT-MONIQUE Ot Z51.0 02/27/2015 ESTEFANI BYRD, BURNETT-MONIQUE Ot 154.1 04/07/2015 SCOTT RPECIADO VACUUM TESTER CANS Ot C20 04/07/2015 SCOTT PRECIADO VACUUM TESTER CANS Ot C20 04/07/2015 ESTEFANI BYRD, BURNETT-MONIQUE Ot C20 04/07/2015 ESTEFANI BYRD, LEX-MONIQUE Ot Z51.0 04/07/2015 ESTEFANI BYRD, BURNETT-MONIQUE Ot 154.1 04/09/2015 ESTEFANI BYRD, BURNETT-MONIQUE Ot 154.1 04/09/2015 ESTEFANI BYRD, BURNETT-MONIQUE Ot C20 04/09/2015 ESTEFANI BYRD, BURNETT-MONIQUE Ot Z51.0 04/09/2015 SCOTT PRECIADO VACUUM TESTER CANS Ot C20 04/10/2015 ESTEFANI BYRD, BURNETT-MONIQUE Ot C20 MALIGNANT NEOPLASM OF RECTUM 04/10/2015 ESTEFANI BYRD, BURNETT-MONIQUE Ot Z51.0 ENCOUNTER FOR ANTINEOPLASTIC RADIATION T 04/25/2015 Ot 793.81 04/25/2015 BRIGETTE BYRD, MICHAEL Lux Ot 466.0 04/25/2015 QUICK, SAMUEL Dee VACUUM TESTER CANS Ot 625.9 04/25/2015 QUICK, SAMUEL Dee VACUUM TESTER CANS Ot V72.31 04/25/2015 QUICK, SAMUEL W VACUUM TESTER CANS Ot V76.12 04/25/2015 QUICK, SAMUEL W VACUUM TESTER CANS Ot 793.80 04/25/2015 QUICK, SAMUEL W VACUUM TESTER CANS Ot 244.9 04/25/2015 QUICK, SAMUEL W VACUUM TESTER CANS Ot 569.3 04/25/2015 MARY BYRD, SHEYLA Ot V72.84 04/25/2015 ESTEFANI BYRD, BURNETT-MONIQUE Ot 154.1 04/25/2015 MARY BYRD, TAKAAKI Ot C20 04/25/2015 MARY BYRD, TAKAAKI Ot Z01.818 04/25/2015 SCOTT PRECIADO VACUUM TESTER CANS Ot C20 04/25/2015 ESTEFANI BYRD, LEX-MONIQUE Ot C20 04/25/2015 ESTEFAIN BYRD, LEX-MONIQUE Ot Z51.0 04/25/2015 ESTEFANI BYRD, BURNETT-MONIQUE Ot C20 04/25/2015 ESTEFANI BYRD, BURNETT-MONIQUE Ot Z51.0 04/25/2015 Ot 793.81 04/25/2015 BRIGETTE BYRD, [place] Lux Ot 466.0 04/25/2015 QUICK, SAMUEL W VACUUM TESTER CANS Ot 625.9 04/25/2015 QUICK, SAMUEL W VACUUM TESTER CANS Ot V72.31 04/25/2015 QUICK, SAMUEL W VACUUM TESTER CANS Ot V76.12 04/25/2015 QUICK, SAMUEL W VACUUM TESTER CANS Ot 793.80 04/25/2015 QUICK, SAMUEL W VACUUM TESTER CANS Ot 244.9 04/25/2015 QUICK, SAMUEL W VACUUM TESTER CANS Ot 569.3 04/25/2015 MARY BYRD, TAKAAKI Ot V72.84 04/25/2015 ESTEFANI BYRD, BURNETT-MONIQUE Ot 154.1 04/25/2015 MARY BYRD, TAKAAKI Ot C20 04/25/2015 MARY BYRD, TAKAAKI Ot Z01.818 04/25/2015 SCOTT PRECIADO VACUUM TESTER CANS Ot C20 04/25/2015 ESTEFANI BYRD, BURNETT-MONIQUE Ot C20 04/25/2015 ESTEFANI BYRD, BURNETT-MONIQUE Ot Z51.0 04/25/2015 ESTEFANI BYRD, BURNETT-MONIQUE Ot C20 04/25/2015 ESTEFANI BYRD, BURNETT-MONIQUE Ot Z51.0 04/25/2015 Ot 793.81 04/25/2015 BRIGETTE BYRD, MICHAEL Lux Ot 466.0 04/25/2015 QUICK, SAMUEL W VACUUM TESTER CANS Ot 625.9 04/25/2015 QUICK, SAMUEL W VACUUM TESTER CANS Ot V72.31 04/25/2015 QUICK, SAMUEL W VACUUM TESTER CANS Ot V76.12 04/25/2015 QUICK, SAMUEL W VACUUM TESTER CANS Ot 793.80 04/25/2015 QUICK, SAMUEL W VACUUM TESTER CANS Ot 244.9 04/25/2015 QUICK, SAMUEL W VACUUM TESTER CANS Ot 569.3 04/25/2015 MARY BYRD, LINDAAAKI Ot V72.84 04/25/2015 ESTEFANI BYRD, BURNETT-MONIQUE Ot 154.1 04/25/2015 MARY BYRD, TAKAAKI Ot C20 04/25/2015 MARY BYRD, LINDAAAKI Ot Z01.818 04/25/2015 SCOTT PRECIADO VACUUM TESTER CANS Ot C20 04/25/2015 ESTEFANI BYRD, LILIANA Ot C20 04/25/2015 ESTEFANI BYRD, BURNETT-MONIQUE Ot Z51.0 05/11/2015 Ot 793.81 05/11/2015 BRIGETTE BYRD, MICHAEL Lux Ot 466.0 05/11/2015 QUICK, SAMUEL W VACUUM TESTER CANS Ot 625.9 05/11/2015 QUICK, SAMUEL W VACUUM TESTER CANS Ot V72.31 05/11/2015 QUICK, SAMUEL W VACUUM TESTER CANS Ot V76.12 05/11/2015 QUICK, SAMUEL W VACUUM TESTER CANS Ot 793.80 05/11/2015 QUICK, SAMUEL W VACUUM TESTER CANS Ot 244.9 05/11/2015 QUICK, SAMUEL W VACUUM TESTER CANS Ot 569.3 05/11/2015 MARY BYRD, LINDAAAKI Ot V72.84 05/11/2015 ESTEFANI BYRD, BURNETTKiranMONIQUE Ot 154.1 05/11/2015 MARY BYRD, MAGDAKI Ot C20 05/11/2015 MARY BYRD, SHEYLA Ot Z01.818 05/11/2015 SCOTT PRECIADO VACUUM TESTER CANS Ot C20 05/11/2015 ESTEFANI BYRD, LILIANA Ot [...] Ot R91.8 OTHER NONSPECIFIC ABNORMAL FINDING OF YNUG 05/11/2015 IRENE ESTEVEZ MD Ot Z79.899 OTHER ACCOUNTANT TAX (CURRENT) DRUG THERAPY 05/23/2015 Ot 793.81 05/23/2015 BRIGETTE BYRD, MICHAEL D Ot 466.0 05/23/2015 QUICK, SAMUEL W VACUUM TESTER CANS Ot 625.9 05/23/2015 QUICK, SAMUEL W VACUUM TESTER CANS Ot V72.31 05/23/2015 QUICK, SAMUEL W VACUUM TESTER CANS Ot V76.12 05/23/2015 QUICK, SAMUEL W VACUUM TESTER CANS Ot 793.80 05/23/2015 QUICK, SAMUEL W VACUUM TESTER CANS Ot 244.9 05/23/2015 QUICK, SAMUEL W VACUUM TESTER CANS Ot 569.3 05/23/2015 MARY BYRD, TAKAAKI Ot V72.84 05/23/2015 ESTEFANI BYRD, BURNETT-MONIQUE Ot 154.1 05/23/2015 MARY BYRD, TAKAAKI Ot C20 05/23/2015 MARY BYRD, TAKAAKI Ot Z01.818 05/23/2015 SCOTT PRECIADO VACUUM TESTER CANS Ot C20 05/23/2015 ESTEFANI BYRD, BURNETT-MONIQUE Ot C20 05/23/2015 ESTEFANI BYRD, BURNETT-MONIQUE Ot Z51.0 06/04/2015 ESTEFANI BYRD, BURNETT-MONIQUE Ot C20 06/04/2015 ESTEFANI BYRD, BURNETT-MONIQUE Ot Z51.0 06/05/2015 BRIGETTE BYRD, MICHAEL D Ot 466.0 06/05/2015 QUICK, SAMUEL W VACUUM TESTER CANS Ot 625.9 06/05/2015 QUICK, SAMUEL W VACUUM TESTER CANS Ot V72.31 06/05/2015 QUICK, SAMUEL W VACUUM TESTER CANS Ot V76.12 06/05/2015 QUICK, SAMUEL W VACUUM TESTER CANS Ot 793.80 06/05/2015 QUICK, SAMUEL W VACUUM TESTER CANS Ot 244.9 06/05/2015 QUICK, SAMUEL W VACUUM TESTER CANS Ot 569.3 06/05/2015 MARY BYRD, TAKAAKI Ot V72.84 06/05/2015 ESTEFANI BYRD, BURNETT-MONIQUE Ot 154.1 06/05/2015 MARY BYRD, TAKAAKI Ot C20 06/05/2015 MARY BYRD, TAKAAKI Ot Z01.818 06/05/2015 SCOTT PRECIADO VACUUM TESTER CANS Ot C20 06/05/2015 ESTEFANI BYRD, BURNETT-MONIQUE Ot C20 06/05/2015 ESTEFANI BYRD, BURNETT-MONIQUE Ot Z45.2 06/27/2015 QUICK, SAMUEL Dee VACUUM TESTER CANS Ot 244.9 06/27/2015 QUICK, SAMUEL Dee VACUUM TESTER CANS Ot 569.3 06/27/2015 CHRIS ROSE APRN Ot K59.09 07/01/2015 BRIGETTE BYRD, MICHAEL Lux Ot 466.0 07/01/2015 QUICK, SAMUEL W VACUUM TESTER CANS Ot 625.9 07/01/2015 QUICK, SAMUEL W VACUUM TESTER CANS Ot V72.31 07/01/2015 QUICK, SAMUEL W VACUUM TESTER CANS Ot V76.12 07/01/2015 QUICK, SAMUEL W VACUUM TESTER CANS Ot 793.80 07/01/2015 QUICK, SAMUEL Dee VACUUM TESTER CANS Ot 244.9 07/01/2015 QUICK, SAMUEL W VACUUM TESTER CANS Ot 569.3 07/01/2015 MARY BYRD, SHEYLA Ot [...] BYRD, LILIANA Ot Z45.2 07/21/2015 SCOTT PRECIADO VACUUM TESTER CANS Ot C20 07/21/2015 SCOTT PRECIADOP Ot E03.9 07/21/2015 SCOTT PRECIADO VACUUM TESTER CANS Ot J44.9 07/21/2015 SCOTT PRECIADOP Ot Z79.899 07/21/2015 SCOTT PRECIADOP Ot Z93.3 08/05/2015 ESTEFANI BYRD, LILIANA Ot C20 MALIGNANT NEOPLASM OF RECTUM 08/05/2015 LILIANA JARA MD Ot E03.9 HYPOTHYROIDISM, UNSPECIFIED 08/05/2015 LILIANA JARA MD Ot J44.9 CHRONIC OBSTRUCTIVE PULMONARY DISEASE, U 08/05/2015 LILIANA JARA MD Ot Z51.11 ENCOUNTER FOR ANTINEOPLASTIC CHEMOTHERAP 08/05/2015 LILIANA JARA MD Ot Z79.899 OTHER SENIOR CARE (CURRENT) DRUG THERAPY 08/05/2015 LILIANA JARA MD, Ot Z93.3 COLOSTOMY STATUS 09/05/2015 LILIANA JARA MD Ot C20 MALIGNANT NEOPLASM OF RECTUM 09/05/2015 LILIANA JARA MD Ot E03.9 HYPOTHYROIDISM, UNSPECIFIED 09/05/2015 LILIANA JARA MD, Ot J44.9 CHRONIC OBSTRUCTIVE PULMONARY DISEASE, U 09/05/2015 LILIANA JARA MD Ot Z51.11 ENCOUNTER FOR ANTINEOPLASTIC CHEMOTHERAP 09/05/2015 LILIANA JARA MD Ot Z79.899 OTHER SENIOR CARE (CURRENT) DRUG THERAPY 09/05/2015 LILIANA JARA MD Ot Z93.3 COLOSTOMY STATUS 09/16/2015 LILIANA JARA MD Ot C20 MALIGNANT NEOPLASM OF RECTUM 09/16/2015 LILIANA JARA MD Ot E03.9 HYPOTHYROIDISM, UNSPECIFIED 09/16/2015 LILIANA JARA MD, Ot J44.9 CHRONIC OBSTRUCTIVE PULMONARY DISEASE, U 09/16/2015 LILIANA JARA MD Ot Z51.11 ENCOUNTER FOR ANTINEOPLASTIC CHEMOTHERAP 09/16/2015 LILIANA JARA MD Ot Z79.899 OTHER ACCOUNTANT TAX (CURRENT) DRUG THERAPY 09/16/2015 LILIANA JARA MD Ot Z93.3 COLOSTOMY STATUS 10/13/2015 LILIANA JARA MD Ot C20 MALIGNANT NEOPLASM OF RECTUM 10/13/2015 LILIANA JARA MD Ot E03.9 HYPOTHYROIDISM, UNSPECIFIED 10/13/2015 LILIANA JARA MD Ot J44.9 CHRONIC OBSTRUCTIVE PULMONARY DISEASE, U 10/13/2015 LILIANA JARA MD Ot Z51.11 ENCOUNTER FOR ANTINEOPLASTIC CHEMOTHERAP 10/13/2015 LILIANA JARA MD Ot Z79.899 OTHER SENIOR CARE (CURRENT) DRUG THERAPY 10/13/2015 LILIANA JARA MD Ot Z93.3 COLOSTOMY STATUS 10/20/2015 LILIANA JARA MD Ot C20 MALIGNANT NEOPLASM OF RECTUM 10/20/2015 LILIANA JARA MD Ot E03.9 HYPOTHYROIDISM, UNSPECIFIED 10/20/2015 LILIANA JARA MD, Ot J44.9 CHRONIC OBSTRUCTIVE PULMONARY DISEASE, U 10/20/2015 LILIANA JARA MD Ot Z51.11 ENCOUNTER FOR ANTINEOPLASTIC CHEMOTHERAP 10/20/2015 LILIANA JARA MD Ot Z79.899 OTHER SENIOR CARE (CURRENT) DRUG THERAPY 10/20/2015 LILIANA JARA MD Ot Z93.3 COLOSTOMY STATUS 11/18/2015 LILIANA JARA MD, Ot C20 MALIGNANT NEOPLASM OF RECTUM 11/18/2015 LILIANA JARA MD Ot E03.9 HYPOTHYROIDISM, UNSPECIFIED 11/18/2015 LILIANA JARA MD, Ot J44.9 CHRONIC OBSTRUCTIVE PULMONARY DISEASE, U 11/18/2015 LILIANA JARA MD, Ot Z51.11 ENCOUNTER FOR ANTINEOPLASTIC CHEMOTHERAP 11/18/2015 LILIANA JARA MD, Ot Z79.899 OTHER ACCOUNTANT TAX (CURRENT) DRUG THERAPY 11/18/2015 LILIANA JARA MD, Ot Z93.3 COLOSTOMY STATUS 12/09/2015 BRIGETTE BYRD, MICHAEL Lux Ot 466.0 ACUTE BRONCHITIS 12/09/2015 SAMUEL KEITH VACUUM TESTER CANS Ot 625.9 FEM GENITAL SYMPTOMS NOS 12/09/2015 SAMUEL KEITH VACUUM TESTER CANS Ot V72.31 ROUTINE GYNECOLOGICAL EXAMINATION 12/09/2015 SAMUEL KEITH VACUUM TESTER CANS Ot V76.12 OTH SCREEN MAMMO-MALIGN NEOPLASM OF NOE 12/09/2015 SAMUEL KEITH VACUUM TESTER CANS Ot 793.80 UNSPEC ABNORMAL MAMMOGRAM 12/09/2015 SAMUEL KEITH VACUUM TESTER CANS Ot 244.9 HYPOTHYROIDISM NOS 12/09/2015 SAMUEL KEITH VACUUM TESTER CANS Ot 569.3 RECTAL ANAL HEMORRHAGE 12/09/2015 SHEYLA HERNANDEZ MD Ot V72.84 EXAM PRE-OPERATIVE NOS 12/09/2015 LILIANA JARA MD Ot 154.1 MALIGNANT NEOPL RECTUM 12/09/2015 SHEYLA HERNANDEZ MD Ot C20 MALIGNANT NEOPLASM OF RECTUM 12/09/2015 SHEYLA HERNANDEZ MD Ot Z01.818 ENCOUNTER FOR OTHER PREPROCEDURAL EXAMIN 12/09/2015 SCOTT PRECIADO VACUUM TESTER CANS Ot C20 MALIGNANT NEOPLASM OF RECTUM 12/09/2015 CHRIS ROSE CANDIS Ot K59.09 OTHER CONSTIPATION 12/09/2015 SCOTT PRECIADO VACUUM TESTER CANS Ot C20 MALIGNANT NEOPLASM OF RECTUM 12/09/2015 SCOTT PRECIADO VACUUM TESTER CANS Ot E03.9 HYPOTHYROIDISM, UNSPECIFIED 12/09/2015 SCOTT PRECIADO VACUUM TESTER CANS Ot J44.9 CHRONIC OBSTRUCTIVE PULMONARY DISEASE, U 12/09/2015 SCOTT PRECIADO VACUUM TESTER CANS Ot Z79.899 OTHER ACCOUNTANT TAX (CURRENT) DRUG THERAPY 12/09/2015 PRECIADOSCOTT Greco VACUUM TESTER CANS Ot Z93.3 COLOSTOMY STATUS 12/09/2015 LILIANA JARA MD, Ot C20 MALIGNANT NEOPLASM OF RECTUM 12/09/2015 LILIANA JARA MD, Ot E03.9 HYPOTHYROIDISM, UNSPECIFIED 12/09/2015 LILIANA JARA MD, Ot J44.9 CHRONIC OBSTRUCTIVE PULMONARY DISEASE, U 12/09/2015 LILIANA JARA MD, Ot Z51.11 ENCOUNTER FOR ANTINEOPLASTIC CHEMOTHERAP 12/09/2015 LILIANA JARA MD, Ot Z79.899 OTHER SENIOR CARE (CURRENT) DRUG THERAPY 12/09/2015 LILIANA JARA MD, [...] 01/19/2016 LILIANA JARA MD, Ot Z79.899 OTHER ACCOUNTANT TAX (CURRENT) DRUG THERAPY 01/19/2016 LILIANA JARA MD, Ot Z93.3 COLOSTOMY STATUS 02/04/2016 LILIANA JARA MD, Ot C20 MALIGNANT NEOPLASM OF RECTUM 02/04/2016 LILIANA JARA MD Ot E03.9 HYPOTHYROIDISM, UNSPECIFIED 02/04/2016 LILIANA JARA MD Ot J44.9 CHRONIC OBSTRUCTIVE PULMONARY DISEASE, U 02/04/2016 LILIANA JARA MD Ot Z79.899 OTHER SENIOR CARE (CURRENT) DRUG THERAPY 02/04/2016 LILIANA JARA MD Ot Z93.3 COLOSTOMY STATUS 05/03/2016 LILIANA JARA MD Ot C20 MALIGNANT NEOPLASM OF RECTUM 05/03/2016 LILIANA JARA MD Ot E03.9 HYPOTHYROIDISM, UNSPECIFIED 05/03/2016 LILIANA JARA MD Ot J44.9 CHRONIC OBSTRUCTIVE PULMONARY DISEASE, U 05/03/2016 LILIANA JARA MD Ot Z79.899 OTHER ACCOUNTANT TAX (CURRENT) DRUG THERAPY 05/03/2016 LILIANA JARA MD Ot Z93.3 COLOSTOMY STATUS 05/04/2016 LILIANA JARA MD Ot C20 MALIGNANT NEOPLASM OF RECTUM 05/04/2016 LILIANA JARA MD Ot E03.9 HYPOTHYROIDISM, UNSPECIFIED 05/04/2016 LILIANA JARA MD Ot J44.9 CHRONIC OBSTRUCTIVE PULMONARY DISEASE, U 05/04/2016 LILIANA JARA MD Ot Z79.899 OTHER SENIOR CARE (CURRENT) DRUG THERAPY 05/04/2016 LILIANA JARA MD Ot Z93.3 COLOSTOMY STATUS 05/05/2016 LILIANA JARA MD Ot C20 MALIGNANT NEOPLASM OF RECTUM 05/05/2016 LILIANA JARA MD Ot E03.9 HYPOTHYROIDISM, UNSPECIFIED 05/05/2016 LILIANA JARA MD Ot J44.9 CHRONIC OBSTRUCTIVE PULMONARY DISEASE, U 05/05/2016 LILIANA JARA MD Ot Z79.899 OTHER SENIOR CARE (CURRENT) DRUG THERAPY 05/05/2016 LILIANA JARA MD Ot Z93.3 COLOSTOMY STATUS 05/09/2016 LILIANA JARA MD Ot C20 MALIGNANT NEOPLASM OF RECTUM 05/09/2016 LILIANA JARA MD Ot E03.9 HYPOTHYROIDISM, UNSPECIFIED 05/09/2016 LILIANA JARA MD Ot J44.9 CHRONIC OBSTRUCTIVE PULMONARY DISEASE, U 05/09/2016 LILIANA JARA MD Ot Z79.899 OTHER ACCOUNTANT TAX (CURRENT) DRUG THERAPY 05/09/2016 ESTEFANI BYRD, LILIANA Ot Z93.3 COLOSTOMY STATUS 05/25/2016 CHRIS ROSE PARADICHLOROBENZENE MACHINE OPERATOR Ot Z00.00 ENCNTR FOR GENERAL ADULT MEDICAL [...] HISTORY OF NICOTINE DEPENDENCE 07/19/2016 BRIGETTE BYRD, [place] Lux Ot 466.0 ACUTE BRONCHITIS 07/19/2016 SAMUEL KEITH VACUUM TESTER CANS Ot 625.9 FEM GENITAL SYMPTOMS NOS 07/19/2016 SAMUEL KEITH VACUUM TESTER CANS Ot V72.31 ROUTINE GYNECOLOGICAL EXAMINATION 07/19/2016 SAMUEL KEITH VACUUM TESTER CANS Ot V76.12 OTH SCREEN MAMMO-MALIGN NEOPLASM OF NOE 07/19/2016 SAMUEL KEITH VACUUM TESTER CANS Ot 793.80 UNSPEC ABNORMAL MAMMOGRAM 07/19/2016 SAMUEL KEITH VACUUM TESTER CANS Ot 244.9 HYPOTHYROIDISM NOS 07/19/2016 SAMUEL KEITH VACUUM TESTER CANS Ot 569.3 RECTAL ANAL HEMORRHAGE 07/19/2016 MARY BYRD, SHEYLA Ot V72.84 EXAM PRE-OPERATIVE NOS 07/19/2016 ESTEFANI BYRD, LILIANA Ot 154.1 MALIGNANT NEOPL RECTUM 07/19/2016 SHEYLA HERNANDEZ MD Ot C20 MALIGNANT NEOPLASM OF RECTUM 07/19/2016 SHEYLA HERNANDEZ MD Ot Z01.818 ENCOUNTER FOR OTHER PREPROCEDURAL EXAMIN 07/19/2016 SCOTT PRECIADO VACUUM TESTER CANS Ot C20 MALIGNANT NEOPLASM OF RECTUM 07/19/2016 CHRIS ROSE APRN Ot K59.09 OTHER CONSTIPATION 07/19/2016 SCOTT PRECIADO VACUUM TESTER CANS Ot C20 MALIGNANT NEOPLASM OF RECTUM 07/19/2016 SCOTT PRECIADO VACUUM TESTER CANS Ot E03.9 HYPOTHYROIDISM, UNSPECIFIED 07/19/2016 SCOTT PRECIADO VACUUM TESTER CANS Ot J44.9 CHRONIC OBSTRUCTIVE PULMONARY DISEASE, U 07/19/2016 SCOTT PRECIADO VACUUM TESTER CANS Ot Z79.899 OTHER SENIOR CARE (CURRENT) DRUG THERAPY 07/19/2016 SCOTT PRECIADO VACUUM TESTER CANS Ot Z93.3 COLOSTOMY STATUS 07/19/2016 LILIANA JARA [...] 07/19/2016 LILIANA JARA MD Ot Z79.899 OTHER ACCOUNTANT TAX (CURRENT) DRUG THERAPY 07/19/2016 LILIANA JARA MD, [...] MD, Ot B34.9 VIRAL INFECTION, UNSPECIFIED 07/20/2016 CONRAD MUÑOZ MD, Ot J44.9 CHRONIC OBSTRUCTIVE [...] 08/02/2016 LILIANA JARA MD Ot Z79.899 OTHER ACCOUNTANT TAX (CURRENT) DRUG THERAPY 08/02/2016 LILIANA JARA MD Ot Z93.3 COLOSTOMY STATUS 08/20/2016 LILIANA JARA MD, Ot C20 MALIGNANT NEOPLASM OF RECTUM 08/20/2016 LILIANA JARA MD, Ot E03.9 HYPOTHYROIDISM, UNSPECIFIED 08/20/2016 LILIANA JARA MD, Ot J44.9 CHRONIC OBSTRUCTIVE PULMONARY DISEASE, U 08/20/2016 LILIANA JARA MD Ot Z45.2 ENCOUNTER FOR ADJUSTMENT AND MANAGEMENT 08/20/2016 LILIANA JARA MD, Ot Z79.899 OTHER ACCOUNTANT TAX (CURRENT) DRUG THERAPY 08/20/2016 LILIANA JARA MD Ot Z93.3 COLOSTOMY STATUS 11/17/2016 LILIANA JARA MD Ot C20 MALIGNANT NEOPLASM OF RECTUM 11/17/2016 LILIANA JARA MD Ot E03.9 HYPOTHYROIDISM, UNSPECIFIED 11/17/2016 LILIANA JARA MD Ot J44.9 CHRONIC OBSTRUCTIVE PULMONARY DISEASE, U 11/17/2016 LILIANA JARA MD Ot Z45.2 ENCOUNTER FOR ADJUSTMENT AND MANAGEMENT 11/17/2016 LILIANA JARA MD Ot Z79.899 OTHER ACCOUNTANT TAX (CURRENT) DRUG THERAPY 11/17/2016 LILIANA JARA MD Ot Z93.3 COLOSTOMY STATUS 11/26/2016 LILIANA JARA MD, Ot C20 MALIGNANT NEOPLASM OF RECTUM 11/26/2016 LILIANA JARA MD Ot E03.9 HYPOTHYROIDISM, UNSPECIFIED 11/26/2016 LILIANA JARA MD, Ot J44.9 CHRONIC OBSTRUCTIVE PULMONARY DISEASE, U 11/26/2016 LILIANA JARA MD, Ot Z45.2 ENCOUNTER FOR ADJUSTMENT AND MANAGEMENT 11/26/2016 LILIANA JARA MD Ot Z79.899 OTHER ACCOUNTANT TAX (CURRENT) DRUG THERAPY 11/26/2016 LILIANA JARA MD Ot Z93.3 COLOSTOMY STATUS 12/01/2016 LILIANA JARA MD, Ot C20 MALIGNANT NEOPLASM OF RECTUM 12/01/2016 LILIANA JARA MD Ot E03.9 HYPOTHYROIDISM, UNSPECIFIED 12/01/2016 LILIANA JARA MD, Ot J44.9 CHRONIC OBSTRUCTIVE PULMONARY DISEASE, U 12/01/2016 LILIANA JARA MD, Ot Z45.2 ENCOUNTER FOR ADJUSTMENT AND MANAGEMENT 12/01/2016 LILIANA JARA MD Ot Z79.899 OTHER ACCOUNTANT TAX (CURRENT) DRUG THERAPY 12/01/2016 LILIANA JARA MD Ot Z93.3 COLOSTOMY STATUS 01/08/2017 LILIANA JARA MD Ot C20 MALIGNANT NEOPLASM OF RECTUM 01/08/2017 LILIANA JARA MD Ot E03.9 HYPOTHYROIDISM, UNSPECIFIED 01/08/2017 LILIANA JARA MD Ot J44.9 CHRONIC OBSTRUCTIVE PULMONARY DISEASE, U 01/08/2017 LILIANA JARA MD Ot Z79.899 OTHER SENIOR CARE (CURRENT) DRUG THERAPY 01/08/2017 LILIANA JARA MD Ot Z93.3 COLOSTOMY STATUS 01/25/2017 BRIGETTE BYRD, MICHAEL Lux Ot 466.0 ACUTE BRONCHITIS 01/25/2017 SAGARSAMUEL VACUUM TESTER CANS Ot 625.9 FEM GENITAL SYMPTOMS NOS 01/25/2017 SAGARSAMUEL VACUUM TESTER CANS Ot V72.31 ROUTINE GYNECOLOGICAL EXAMINATION 01/25/2017 SAMUEL KEITH VACUUM TESTER CANS Ot V76.12 OTH SCREEN MAMMO-MALIGN NEOPLASM OF NOE 01/25/2017 SAMUEL KEITH VACUUM TESTER CANS Ot 793.80 UNSPEC ABNORMAL MAMMOGRAM 01/25/2017 SAMUEL KEITH VACUUM TESTER CANS Ot 244.9 HYPOTHYROIDISM NOS 01/25/2017 SAGARSAMUEL VACUUM TESTER CANS Ot 569.3 RECTAL ANAL HEMORRHAGE 01/25/2017 MARY [...] SCOTT PRECIADOP Ot E03.9 HYPOTHYROIDISM, UNSPECIFIED 01/25/2017 SCOTT PRECIADO Ot J44.9 CHRONIC OBSTRUCTIVE PULMONARY DISEASE, U 01/25/2017 SCOTT PRECIADOP Ot Z79.899 OTHER SENIOR CARE (CURRENT) DRUG THERAPY 01/25/2017 SCOTT PRECIADOP Ot Z93.3 COLOSTOMY STATUS 01/25/2017 LILIANA JARA MD Ot C20 MALIGNANT NEOPLASM OF RECTUM 01/25/2017 LILIANA JARA MD Ot R94.5 ABNORMAL RESULTS OF LIVER FUNCTION STUDI 01/25/2017 CHRIS ROSE PARADICHLOROBENZENE MACHINE OPERATOR Ot Z00.00 ENCNTR FOR GENERAL ADULT MEDICAL EXAM W/ 01/26/2017 LILIANA JARA MD Ot C20 MALIGNANT NEOPLASM OF RECTUM 01/26/2017 LILIANA JARA MD Ot E03.9 HYPOTHYROIDISM, UNSPECIFIED 01/26/2017 LILIANA JARA MD Ot J44.9 CHRONIC OBSTRUCTIVE PULMONARY DISEASE, U 01/26/2017 LILIANA JARA MD, Ot Z45.2 ENCOUNTER FOR ADJUSTMENT AND MANAGEMENT 01/26/2017 LILIANA JARA MD Ot Z79.899 OTHER ACCOUNTANT TAX (CURRENT) DRUG THERAPY 01/26/2017 LILIANA JARA MD Ot Z93.3 COLOSTOMY STATUS 04/25/2017 LILIANA JARA MD, Ot MALIGNANT NEOPLASM OF RECTUM 04/25/2017 LILIANA JARA MD, Ot E03.9 HYPOTHYROIDISM, UNSPECIFIED 04/25/2017 LILIANA JARA MD, Ot J44.9 CHRONIC OBSTRUCTIVE PULMONARY DISEASE, U 04/25/2017 LILIANA JARA MD, Ot Z45.2 ENCOUNTER FOR ADJUSTMENT AND MANAGEMENT 04/25/2017 LILIANA JARA MD, Ot Z79.899 OTHER ACCOUNTANT TAX (CURRENT) DRUG THERAPY 04/25/2017 LILIANA JARA MD, Ot Z93.3 COLOSTOMY STATUS 04/26/2017 LILIANA JARA MD, Ot MALIGNANT NEOPLASM OF RECTUM 04/26/2017 LILIANA JARA MD Ot E03.9 HYPOTHYROIDISM, UNSPECIFIED 04/26/2017 LILIANA JARA MD, Ot J44.9 CHRONIC OBSTRUCTIVE PULMONARY DISEASE, U 04/26/2017 LILIANA JARA MD, Ot Z45.2 ENCOUNTER FOR ADJUSTMENT AND MANAGEMENT 04/26/2017 LILIANA JARA MD Ot Z79.899 OTHER ACCOUNTANT TAX (CURRENT) DRUG THERAPY 04/26/2017 LILIANA JARA MD Ot Z93.3 COLOSTOMY STATUS 05/11/2017 LILIANA JARA MD, Ot C20 MALIGNANT NEOPLASM OF RECTUM 05/11/2017 LILIANA JARA MD Ot E03.9 HYPOTHYROIDISM, UNSPECIFIED 05/11/2017 LILIANA JARA MD, Ot J44.9 CHRONIC OBSTRUCTIVE PULMONARY DISEASE, U 05/11/2017 LILIANA JARA MD, Ot Z45.2 ENCOUNTER FOR ADJUSTMENT AND MANAGEMENT 05/11/2017 LILIANA JARA MD Ot Z79.899 OTHER SENIOR CARE (CURRENT) DRUG THERAPY 05/11/2017 LILIANA JARA MD [...] PLUS NORMAL HAI NRG Bacterial sputum culture [id number] NRG Bacterial susceptibility panel - 05/24/16 17:55 [...] culture - 05/31/16 19:10 Bacterial blood culture [facility] Influenza virus A and B antigen detection - 05/31/16 19:24 FLU RESULT NEGATIVE FOR INFLUENZA A AND B ANTIGENS BY [facility] Complete blood count (CBC) with automated white [...] Status Pt. Type Provider Facility Loc./Unit Complaint [id number] 05/10/2017 15:35:00 05/10/2017 23:59:59 CLS Outpatient LILIANA JARA MD [facility] ONC [id number] 04/12/2017 15:45:00 04/25/2017 00:01:00 DIS Outpatient LILIANA JARA MD [facility] ONC [id number] 11/30/2016 14:05:00 01/08/2017 00:01:00 DIS Outpatient LILIANA JARA MD [facility] ONC [id number] 10/19/2016 16:58:00 11/17/2016 00:01:00 DIS Outpatient LILIANA JARA MD [facility] ONC [id number] 07/13/2016 13:49:00 08/02/2016 00:01:00 DIS Outpatient LILIANA JARA MD [facility] ONC [id number] 07/19/2016 13:47:00 07/19/2016 17:07:00 DIS Emergency TONI BYRD, CONRAD Lux [facility] ER PAIN ALL OVER/ VOMITING SRIKANTHKEY [id number] 05/31/2016 18:33:00 05/31/2016 20:18:00 DIS Emergency MINA BYRD, JANY Ahn [facility] ER SOA [id number] 05/24/2016 17:40:00 05/24/2016 23:59:59 CLS Outpatient CHRIS ROSE APRN [facility] LAB ADULT HEALTH EXAMINATION,COUGH,FATIGUE [id number] 03/16/2016 12:46:00 05/03/2016 00:01:00 DIS Outpatient LILIANA JARA MD [facility] ONC [id number] 12/23/2015 14:00:00 01/19/2016 08:32:00 DIS Outpatient LILIANA JARA MD [facility] ONC [id number] 12/01/2015 08:42:00 12/01/2015 23:59:59 CLS Outpatient LILIANA JARA MD [facility] RAD RECTAL CANCER, ABNORMAL RESULTS OF LIVER FUNCTION [id number] 10/07/2015 12:57:00 10/13/2015 00:01:00 DIS Outpatient LILIANA JARA MD [facility] ONC [id number] 07/15/2015 12:50:00 07/15/2015 23:59:59 CLS Outpatient SCOTT PRECIADO [facility] [facility] ONC [id number] 07/09/2015 14:47:00 07/14/2015 00:01:00 DIS Outpatient LILIANA JARA MD [facility] ONC [id number] 06/05/2015 13:46:00 06/05/2015 23:59:59 CLS Outpatient CHRIS ROSE APRN [facility] RAD CONSTIPATION [id number] 05/11/2015 12:07:00 05/11/2015 15:16:00 DIS Emergency ZENAIDA BYRD, IRENE Murguia [facility] ER R AND L KNEE/LEG PAIN [id number] 03/14/2015 16:26:00 04/10/2015 00:01:00 DIS Outpatient LILIANA JARA MD [facility] ONC [id number] 01/20/2015 13:34:00 01/20/2015 23:59:59 CLS Outpatient SCOTT PRECIADO [facility] ONC [id number] 01/16/2015 13:08:00 01/16/2015 16:05:00 DIS Outpatient SHEYLA HERNANDEZ MD [facility] SD RECTAL CA [id number] 01/09/2015 05:32:00 01/09/2015 23:59:59 CLS Outpatient SHEYLA HERNANDEZ MD [facility] PREOP RECTAL CA [id number] 12/30/2014 15:08:00 01/08/2015 00:01:00 DIS Outpatient LILIANA JARA MD [facility] ONC [id number] 01/07/2015 12:05:00 01/07/2015 23:59:59 CLS Outpatient LILIANA JARA MD [facility] RAD STAGING OF RECTAL CA [id number] 09/27/2014 10:07:00 09/27/2014 13:45:00 DIS Outpatient SHEYLA HERNANDEZ MD [facility] SDC RECTAL BLEEDING [id number] 09/24/2014 09:39:00 09/24/2014 23:59:59 CLS Outpatient SHEYLA HERNANDEZ MD [facility] PREOP RECTAL BLEEDING [id number] 09/10/2014 17:26:00 09/10/2014 23:59:59 CLS Outpatient SAMUEL KEITH [facility] LAB RECTAL BLEEDING,BRUISING, HYPOTHYROIDISM [id number] 09/05/2013 08:24:00 09/05/2013 23:59:59 CLS Outpatient SAMUEL KEITH [facility] RAD ABNORMAL MAMMO [id number] 08/21/2013 14:30:00 08/21/2013 23:59:59 CLS Outpatient SAMUEL KEITHP [facility] RAD SCREENING [id number] 08/21/2013 13:37:00 08/21/2013 23:59:59 CLS Outpatient SAMUEL KEITH [facility] RAD PELVIC PAIN [id number] 04/17/2013 16:08:00 04/23/2013 14:02:00 DIS Inpatient MICHAEL MACHUCA MD [facility] 4TH RESPIRATORY DISTRESS; PNUEMONIA [id number] 01/23/2013 16:02:00 01/23/2013 23:59:59 CLS Outpatient MICHAEL MACHUCA MD [facility] LAB COUGH, ACUTE BRONCHITIS [id number] 05/24/2017 13:25:00 Document Registration [id number] 09/10/2014 17:26:00 Document Registration [id number] 09/10/2014 17:26:00 Document Registration [id number] 09/10/2014 17:26:00 Document Registration [id number] 09/10/2014 17:26:00 Document Registration [id number] 12/03/2009 10:15:00 Document Registration
[2017-05-26] MEDS: PROMETHAZINE/ CODEINE SYRUP 5 ML UDC PO PRN (14:54)
[2017-05-26] MEDS: CEFEPIME INJECTION 2,000 MG in NS (IVPB) 50 ML IV SCH (21:13)
[2017-05-27] VITALS (19 sets, daily range): BP systolic 97–133; BP diastolic 68–100
[2017-05-27] MEDS: RT-ALBUTEROL/IPRATROPIUM 3 ML (DUONEB) VIAL INH SCH ×8 (01:06→16:00)
[2017-05-27 04:33] LABS: BASOPHILS # (AUTO) 0.1 10^3/uL (0.0-0.1); BASOPHILS % (AUTO) 1 % (0-10); EOSINOPHILS % (AUTO) 0 % (0-10); HEMATOCRIT 40 % (35-52); HEMOGLOBIN 13.1 G/DL (11.5-16.0); LYMPHOCYTES # (AUTO) 0.8 X 10^3 (1.0-4.0); LYMPHOCYTES % (AUTO) 10 % (12-44); MEAN CORPUSCULAR HEMOGLOBIN 31 PG (25-34); MEAN CORPUSCULAR HGB CONC 33 G/DL (32-36); MEAN CORPUSCULAR VOLUME 93 FL (80-99); MEAN PLATELET VOLUME 11.3 FL (7.4-10.4); MONOCYTES # (AUTO) 1.2 X 10^3 (0.0-1.0); MONOCYTES % (AUTO) 15 % (0-12); NEUTROPHILS # (AUTO) 6.1 X 10^3 (1.8-7.8); NEUTROPHILS % (AUTO) 75 % (42-75); PLATELET COUNT 253 10^3/uL (130-400); RED BLOOD COUNT 4.24 10^6/uL (4.35-5.85); RED CELL DISTRIBUTION WIDTH 14.1 % (10.0-14.5); WHITE BLOOD COUNT 8.1 10^3/uL (4.3-11.0)
[2017-05-27 04:49] LABS: BUN/CREATININE RATIO 40; CALCIUM 8.8 MG/DL (8.5-10.1); CARBON DIOXIDE 33 MMOL/L (21-32); CHLORIDE 96 MMOL/L (98-107); CREATININE SERUM 0.72 MG/DL (0.60-1.30); GFR ESTIMATED > 60; GLUCOSE 99 MG/DL (70-105); MAGNESIUM 2.4 MG/DL (1.8-2.4); POTASSIUM 4.3 MMOL/L (3.6-5.0); SODIUM 140 MMOL/L (135-145)
[2017-05-27] MEDS: CATHETER FLUSH 10 ML SYR IV SCH ×2 (06:06→13:14)
[2017-05-27] MEDS: LEVOTHYROXINE 50 MCG (LEVOTHROID) TAB PO SCH (06:17)
[2017-05-27] MEDS: RT-ADVAIR HFA 115/21 MCG PER PUFF IH SCH (08:07)
[2017-05-27] MEDS: ALPRAZolam 1 MG (XANAX) TAB PO SCH ×2 (08:11→13:09)
[2017-05-27] MEDS: CEFEPIME INJECTION 2,000 MG in NS (IVPB) 50 ML IV SCH (08:11)
[2017-05-27] MEDS: ROFLUMILAST 500 MCG TAB (DALIRESP) PO SCH (08:11)
[2017-05-27] MEDS: predniSONE 10 MG TAB PO SCH (08:12)
[2017-05-27] MEDS: CIPROFLOXACIN 500 MG (CIPRO) TABLET PO SCH (08:12)
[2017-05-27] MEDS: POLYETHYLENE GLYCOL 17 GM (MIRALAX) PACK PO SCH (08:13)
[2017-05-27] MEDS ORDERED: FLUCONAZOLE 100 MG/50 ML 50 ML IV SCH (11:15)
--- NOTE | 2017-05-27 11:19 | Progress Note-Hospitalist ---
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 She reports that over the last 2 or 3 days should become progressively more short of breath. She ultimately came to the emergency room yesterday and was admitted. She reports she is been unaware of fever. She had been started on Tamiflu as her son was diagnosed as having the flu. She noted increased dyspnea on exertion. She reports that today she is modestly improved but still quite short of breath. Progress Notes/Assess & Plan Date Seen 05/27/17 Time Seen by Provider: 11:00 Diagonsis/Assessment & Plan [place] approval awaiting sig no medical management trainer. Patient is willing to go to [place] considering this could be several weeks of pulmonary expertise to eventually get her back to her baseline No BM yet after multiple meds she does have the colostomy bag ready Denies any pain Does report thrush and yeast vaginitis so will start medication to treat those conditions Denies any pain Losing peripheral access No fever, vital signs stable, pleasant, chronically ill, thin, anxious Regular rate and rhythm, wheezing all jose with mild use of accessory muscles No edema Laboratory Tests 05/27/17 03:50 Assessment: Severe COPD with bronchitis requiring biPAP Pneumonitis with Pseudomonas placed on Cefepime and Cipro Hypoxemia severe on admission Leukocytosis Anxiety Rectal cancer with colostomy Constipation Thrush/yeast vaginitis Poor vascular access Plan: Maintain Cipro and Cefepime IV steroids Nebulizer treatments Oxygen Ambulate Reconcile home meds [place] referral since I predict 2-3 weeks of exacerbation COPD issues Nystatin and Diflucan Midline placement ELO RODRÍGUEZ DO May 27, 2017 11:19
[2017-05-27] MEDS ORDERED: NYST1000 PO (11:55)
[2017-05-27] MEDS ORDERED: HEPA500018 SC (11:55)
[2017-05-27] MEDS ORDERED: CIPR500T4 PO (11:55)
[2017-05-27] MEDS ORDERED: FLUC100T PO (11:55)
[2017-05-27] MEDS ORDERED: CEFE2PIG IV (11:55)
[2017-05-27] MEDS ORDERED: MICONAZOLE NITRATE 2% TP (11:55)
[2017-05-27] MEDS ORDERED: PRD10T PO (11:55)
[2017-05-27] MEDS ORDERED: POLY17PO23 PO (11:55)
[2017-05-27] MEDS ORDERED: NYSTATIN ORAL SUSP 5 ML UDC PO SCH (12:00)
--- NOTE | 2017-05-27 16:12 | Discharge Summary-Hospitalist ---
Diagnosis/Chief Complaint Date of Admission May 22, 2017 at 14:01 Date of Discharge Discharge Date: May 27, 2017 Admission Diagnosis COPD in exacerbation. 2.history of rectal cancer with left upper quadrant colostomy Discharge Diagnosis [place] approval awaiting sig no senior medical writer. Patient is willing to go to [place] considering this could be several weeks of pulmonary expertise to eventually get her back to her baseline No BM yet after multiple meds she does have the colostomy bag ready Denies any pain Does report thrush and yeast vaginitis so will start medication to treat those conditions Denies any pain Losing peripheral access No fever, vital signs stable, pleasant, chronically ill, thin, anxious Regular rate and rhythm, wheezing all jose with mild use of accessory muscles No edema Laboratory Tests 05/27/17 03:50 Assessment: Severe COPD with bronchitis requiring biPAP Pneumonitis with Pseudomonas placed on Cefepime and Cipro Hypoxemia severe on admission Leukocytosis Anxiety Rectal cancer with colostomy Constipation Thrush/yeast vaginitis Poor vascular access Plan: Maintain Cipro and Cefepime IV steroids Nebulizer treatments Oxygen Ambulate Reconcile home meds [place] referral since I predict 2-3 weeks of exacerbation COPD issues Nystatin and Diflucan Midline placement Discharge Summary Discharge Physical Examination Allergies: Coded Allergies: levofloxacin (Verified Allergy, Unknown, NAUSEA/VOMITING, NUMBNESS OF FACE AND ARMS, 05/24/17) moxifloxacin (Verified Allergy, Unknown, N/V, 01/17/08) Vitals & I&Os Vital Signs Date Time Temp Pulse Resp B/P (MAP) Pulse Ox O2 Delivery O2 Flow Rate FiO2 05/27/17 15:35 97 Nasal Cannula 1.00 05/27/17 15:05 98.6 103 20 126/91 (103) 05/26/17 04:00 35 Hospital Course 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 She reports that over the last 2 or 3 days should become progressively more short of breath. She ultimately came to the emergency room yesterday and was admitted. She reports she is been unaware of fever. She had been started on Tamiflu as her son was diagnosed as having the flu. She noted increased dyspnea on exertion. She reports that today she is modestly improved but still quite short of breath. Progress Notes/Assess & Plan Date Seen 05/27/17 Time Seen by Provider: 11:00 Diagonsis/Assessment & Plan [place] approval awaiting sig no senior medical writer. Patient is willing to go to [place] considering this could be several weeks of pulmonary expertise to eventually get her back to her baseline No BM yet after multiple meds she does have the colostomy bag ready Denies any pain Does report thrush and yeast vaginitis so will start medication to treat those conditions Denies any pain Losing peripheral access No fever, vital signs stable, pleasant, chronically ill, thin, anxious Regular rate and rhythm, wheezing all jose with mild use of accessory muscles No edema Laboratory Tests 05/27/17 03:50 Assessment: Severe COPD with bronchitis requiring biPAP Pneumonitis with Pseudomonas placed on Cefepime and Cipro Hypoxemia severe on admission Leukocytosis Anxiety Rectal cancer with colostomy Constipation Thrush/yeast vaginitis Poor vascular access Plan: Maintain Cipro and Cefepime IV steroids Nebulizer treatments Oxygen Ambulate Reconcile home meds [place] referral since I predict 2-3 weeks of exacerbation COPD issues Nystatin and Diflucan Midline placement Hospital course: patient had a lengthy hospital stay. Pt with such severe COPD she required ICU transfer with biPAP due to severe respiratory insufficiency. Pt was placed on Cipro and Cefepime for Pseudomonas pneumonitis and IV steroids. I predict a long recovery and in need of pulmonary expertise so she was sent to [place]. Thrush and vaginitis were treated with Diflucan and Monistat. Labs (last 24 hrs) Laboratory Tests 05/27/17 03:50: White Blood Count 8.1, Red Blood Count 4.24L, Hemoglobin 13.1, Hematocrit 40, Mean Corpuscular Volume 93, Mean Corpuscular Hemoglobin 31, Mean Corpuscular Hemoglobin Concent 33, Red Cell Distribution Width 14.1, Platelet Count 253, Mean Platelet Volume 11.3H, Neutrophils (%) (Auto) 75, Lymphocytes (%) (Auto) 10L, Monocytes (%) (Auto) 15H, Eosinophils (%) (Auto) 0, Basophils (%) (Auto) 1 , Neutrophils # (Auto) 6.1, Lymphocytes # (Auto) 0.8L, Monocytes # (Auto) 1.2H, Eosinophils # (Auto) 0.0, Basophils # (Auto) 0.1, Sodium Level 140, Potassium Level 4.3, Chloride Level 96L, Carbon Dioxide Level 33H, Anion Gap 11, Blood Urea Nitrogen 29H, Creatinine 0.72, Estimat Glomerular Filtration Rate > 60, BUN /Creatinine Ratio 40, Glucose Level 99, Calcium Level 8.8, Magnesium Level 2.4 Microbiology 05/22/17 Blood Culture - Final, Complete No growth 05/22/17 Gram Stain - Final, Complete 05/22/17 Sputum Culture - Final, Complete Klebsiella pneumoniae Pseudomonas aeruginosa Discharge Home Medications: Active Scripts Active Diflucan (Fluconazole) 100 Mg Tablet 100 Mg PO DAILY 7 Days Cefepime-Dextrose 2 gm/50 ml (Cefepime HCl/D5w) 2 Gm/50 Ml Piggyback 2 Gm IV BID 7 Days [Miconazole Nitrate 2% Crm] 28.4 GM Cream..g. 0 Gm TP BID 7 Days Prednisone 10 Mg Tab 50 Mg PO DAILY 10 Days Polyethylene Glycol 3350 17 Gm Powd.pack 34 Gm PO BID 7 Days Heparin Sodium (Heparin Sodium,Porcine) 5,000 Unit/1 Ml Vial 5,000 Units SC Q8HR 7 Days Nystatin 100,000 Unit/1 Ml Oral.susp 5 Ml PO Q6HR 7 Days Ciprofloxacin HCl 500 Mg Tablet 500 Mg PO BID 7 Days Reported Excedrin Extra Strength Caplet (Aspirin/Acetaminophen/Caffeine) 1 Each Tablet 1 Tab PO BID PRN Iprat-Albut 0.5-3(2.5) mg/3 ml (Ipratropium/Albuterol Sulfate) 3 Ml Ampul.neb 3 Ml IH Q4H PRN Promethazine-Codeine Syrup (Promethazine HCl/Codeine) 118 Ml Syrup 5 Ml PO Q4H PRN Levothyroxine Sodium 100 Mcg Tablet 50 Mcg PO DAILY TAKES 1/2 OF A (100 MG) Daliresp (Roflumilast) 500 Mcg Tablet 500 Mcg PO DAILY Symbicort 160-4.5 Mcg Inhaler (Budesonide/Formoterol Fumarate) 10.2 Gm Hfa.aer.ad 2 Puff IH BID Alprazolam 1 Mg Tablet 1 Mg PO TID Oseltamivir Phosphate 75 Mg Capsule 75 Mg PO HS FILLED 05/19/17 #10 FOR A 10 DAY THERAPY Instructions to patient/family Please see electronic discharge instructions given to patient. Clinical Quality Measures DVT/VTE Risk/Contraindication: Risk Factor Score Per Nursin RFS Level Per Nursing on Admit: 3=High ELO RODRÍGUEZ DO May 27, 2017 16:12
[2017-05-27] MEDS ORDERED: MICONAZOLE NITRATE 2% CRM 30 GM TP SCH (21:00)
== END 2017-05-27 17:50 | DRG 190 ==
LOC: EDUNIT# 09:27 → ER 09:28 → 4TH 14:01 → ICU 05-25 17:23
PROVIDERS: ADMIT Family Medicine; ATTEND Family Medicine
DX: J44.1 Chronic obstructive pulmonary disease with (acute) exacerbation (principal); J44.0 Chronic obstructive pulmonary disease with (acute) lower respiratory infection; J15.1 Pneumonia due to Pseudomonas; B37.0 Candidal stomatitis; B37.3 Candidiasis of vulva and vagina; F41.9 Anxiety disorder, unspecified; K59.00 Constipation, unspecified; E03.9 Hypothyroidism, unspecified; K21.9 Gastro-esophageal reflux disease without esophagitis; I87.2 Venous insufficiency (chronic) (peripheral); Z87.891 Personal history of nicotine dependence; Z85.048 Personal history of other malignant neoplasm of rectum, rectosigmoid junction, and anus; Z93.3 Colostomy status; Z92.21 Personal history of antineoplastic chemotherapy; Z92.3 Personal history of irradiation
CPT/HCPCS: 36415; 71046; 71275; 76937; 80048; 80053; 83605; 83735; 83880; 84100; 85007; 85025; 85027; 85652; 86141; 87040; 87070; 87077; 87186; 87205; 87804; 94640; 94660; 94760; 96361; 96365; 96375

== ENCOUNTER 2017-06-14 12:58 | Outpatient (RCR) | payer OTHER ==
[~2017-06-14 12:58] MED LIST changes: +ALPR1TAB7 PO; +ASPI-992 PO; +BUDE10.2 IH; +CEFE2PIG IV; +CIPR500T4 PO; +FLUC100T PO; +HEPA500018 SC; +LEVO100T7 PO; +MICONAZOLE NITRATE 2% TP; +NYST1000 PO; +OSEL75CA15 PO; +POLY17PO23 PO; +ROFL500T4 PO
[2017-06-14 13:25] LABS: BASOPHILS % (AUTO) 0 % (0-10); EOSINOPHILS % (AUTO) 0 % (0-10); HEMATOCRIT 42 % (35-52); HEMOGLOBIN 13.8 G/DL (11.5-16.0); LYMPHOCYTES # (AUTO) 0.4 X 10^3 (1.0-4.0); LYMPHOCYTES % (AUTO) 3 % (12-44); MEAN CORPUSCULAR HEMOGLOBIN 30 PG (25-34); MEAN CORPUSCULAR HGB CONC 33 G/DL (32-36); MEAN CORPUSCULAR VOLUME 91 FL (80-99); MEAN PLATELET VOLUME 10.6 FL (7.4-10.4); MONOCYTES # (AUTO) 0.3 X 10^3 (0.0-1.0); MONOCYTES % (AUTO) 2 % (0-12); NEUTROPHILS # (AUTO) 12.6 X 10^3 (1.8-7.8); NEUTROPHILS % (AUTO) 94 % (42-75); PLATELET COUNT 268 10^3/uL (130-400); RED BLOOD COUNT 4.62 10^6/uL (4.35-5.85); RED CELL DISTRIBUTION WIDTH 14.3 % (10.0-14.5); WHITE BLOOD COUNT 13.3 10^3/uL (4.3-11.0)
[2017-06-14 13:46] LABS: ALANINE AMINOTRANSFERASE 24 U/L (0-55); ALBUMIN 4.4 GM/DL (3.2-4.5); ALKALINE PHOSPHATASE 66 U/L (40-136); BILIRUBIN,TOTAL 0.4 MG/DL (0.1-1.0); BUN/CREATININE RATIO 19; CALCIUM 10.3 MG/DL (8.5-10.1); CARBON DIOXIDE 25 MMOL/L (21-32); CHLORIDE 101 MMOL/L (98-107); CREATININE SERUM 0.74 MG/DL (0.60-1.30); GFR ESTIMATED > 60; GLUCOSE 130 MG/DL (70-105); POTASSIUM 3.9 MMOL/L (3.6-5.0); SODIUM 140 MMOL/L (135-145); TOTAL PROTEIN 7.4 GM/DL (6.4-8.2)
== END 2017-08-08 | disposition home or self-care (01) ==
LOC: ONC 12:58
PROVIDERS: ATTEND Internal Medicine Hematology & Oncology
DX: C20 Malignant neoplasm of rectum (principal); E03.9 Hypothyroidism, unspecified; J44.9 Chronic obstructive pulmonary disease, unspecified; Z93.3 Colostomy status; Z79.899 Other long term (current) drug therapy
CPT/HCPCS: 36591; 80053; 82378; 84443; 85025

== ENCOUNTER → 2017-10-20 | Outpatient (CLI) | payer OTHER ==
[~2017-10-20] MED LIST changes: +BARIUM SUSPENSION 2.1% (VANILLA SILQ) 450 ML PO ONE; +CODE118S4 PO; +IOHEXOL 350 MG/ML 100 ML (OMNIPAQUE 350) VIAL IV ONE; -IPRA3AMP IH; +IPRA3AMP31 IH; +NS 250 ML (IVPB) BAG IV ONE
--- NOTE | 2017-10-20 18:37 | Diagnostic Imaging Report ---
PROCEDURE: CT abdomen and pelvis with contrast. TECHNIQUE: Multiple contiguous axial images were obtained through the abdomen and pelvis after administration of intravenous contrast. INDICATION: Rectal carcinoma, followup. Comparison is made with prior CT from 07/19/2016. FINDINGS: The lung bases are clear. The liver demonstrates some mild generalized low density suggestive of hepatic steatosis. No discrete liver mass is identified. The pancreas and spleen are unremarkable. No adrenal mass is identified. Kidneys are unremarkable. Aorta is calcified but nonaneurysmal. No central retroperitoneal or mesenteric lymphadenopathy is seen. There is an ostomy in the left lower quadrant. The small and large bowel loops are normal caliber. No ascites is seen. The degree of soft tissue thickening in the presacral location has significantly improved. Bladder is unremarkable. No pelvic lymphadenopathy is seen. Tiny sclerotic foci previously described are again noted. IMPRESSION: Stable to improved appearance of the abdomen and pelvis when compared with prior CT from 07/19/2016. Specifically, presacral soft tissue density has significantly improved. No abdominal or pelvic lymphadenopathy is detected. Dictated by: Dictated on workstation # [id number]
== END ==
LOC: RAD 14:45
PROVIDERS: ATTEND Internal Medicine Hematology & Oncology
DX: C20 Malignant neoplasm of rectum (principal)
CPT/HCPCS: 74177

== ENCOUNTER 2017-10-27 14:37 | Outpatient (RCR) | payer OTHER ==
[2017-09-29 15:06] LABS: BASOPHILS % (AUTO) 1 % (0-10); EOSINOPHILS # (AUTO) 0.1 10^3/uL (0.0-0.3); EOSINOPHILS % (AUTO) 2 % (0-10); HEMATOCRIT 40 % (35-52); HEMOGLOBIN 13.2 G/DL (11.5-16.0); LYMPHOCYTES # (AUTO) 0.9 X 10^3 (1.0-4.0); LYMPHOCYTES % (AUTO) 13 % (12-44); MEAN CORPUSCULAR HEMOGLOBIN 30 PG (25-34); MEAN CORPUSCULAR HGB CONC 33 G/DL (32-36); MEAN CORPUSCULAR VOLUME 89 FL (80-99); MEAN PLATELET VOLUME 10.8 FL (7.4-10.4); MONOCYTES # (AUTO) 0.7 X 10^3 (0.0-1.0); MONOCYTES % (AUTO) 10 % (0-12); NEUTROPHILS # (AUTO) 5.2 X 10^3 (1.8-7.8); NEUTROPHILS % (AUTO) 75 % (42-75); PLATELET COUNT 295 10^3/uL (130-400); RED BLOOD COUNT 4.44 10^6/uL (4.35-5.85); RED CELL DISTRIBUTION WIDTH 13.3 % (10.0-14.5); WHITE BLOOD COUNT 6.9 10^3/uL (4.3-11.0)
[2017-09-29 15:24] LABS: ALANINE AMINOTRANSFERASE 38 U/L (0-55); ALKALINE PHOSPHATASE 77 U/L (40-136); BILIRUBIN,TOTAL 0.3 MG/DL (0.1-1.0); BUN/CREATININE RATIO 16; CALCIUM 9.2 MG/DL (8.5-10.1); CARBON DIOXIDE 23 MMOL/L (21-32); CHLORIDE 105 MMOL/L (98-107); GFR ESTIMATED > 60; GLUCOSE 104 MG/DL (70-105); POTASSIUM 4.1 MMOL/L (3.6-5.0); SODIUM 139 MMOL/L (135-145); TOTAL PROTEIN 6.7 GM/DL (6.4-8.2)
[2017-09-29 15:25] LABS: ALBUMIN 4.2 GM/DL (3.2-4.5)
[~2017-10-27 14:37] MED LIST changes: -BARIUM SUSPENSION 2.1% (VANILLA SILQ) 450 ML PO ONE; -IOHEXOL 350 MG/ML 100 ML (OMNIPAQUE 350) VIAL IV ONE; -NS 250 ML (IVPB) BAG IV ONE
== END 2017-11-16 | disposition home or self-care (01) ==
LOC: ONC 14:37
PROVIDERS: ATTEND Internal Medicine Hematology & Oncology
DX: C20 Malignant neoplasm of rectum (principal); E03.9 Hypothyroidism, unspecified; J44.9 Chronic obstructive pulmonary disease, unspecified; Z93.3 Colostomy status; Z79.899 Other long term (current) drug therapy; Z95.2 Presence of prosthetic heart valve; Z45.2 Encounter for adjustment and management of vascular access device
CPT/HCPCS: 36591; 80053; 84443; 85025; 96523

== ENCOUNTER 2017-12-08 15:40 | Outpatient (RCR) | payer OTHER | END 2017-12-09 | disposition home or self-care (01) | LOC: ONC 15:40 | PROVIDERS: ATTEND Internal Medicine Hematology & Oncology | DX: C20 Malignant neoplasm of rectum (principal); E03.9 Hypothyroidism, unspecified; J44.9 Chronic obstructive pulmonary disease, unspecified; Z93.3 Colostomy status; Z79.899 Other long term (current) drug therapy; Z95.2 Presence of prosthetic heart valve; Z45.2 Encounter for adjustment and management of vascular access device | CPT/HCPCS: 96523 ==

== ENCOUNTER → 2018-03-16 | Outpatient (CLI) | payer OTHER ==
[~2018-03-16] MED LIST changes: -POLY17PO23 PO; +POLY17PO31 PO
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
== END ==
LOC: RAD 12:20
PROVIDERS: ATTEND Nurse Practitioner Family
DX: J16.8 Pneumonia due to other specified infectious organisms (principal)
CPT/HCPCS: 71046

== ENCOUNTER 2018-03-21 14:05 | Outpatient (RCR) | payer OTHER ==
[2018-01-12 15:03] LABS: BASOPHILS # (AUTO) 0.1 10^3/uL (0.0-0.1); BASOPHILS % (AUTO) 1 % (0-10); EOSINOPHILS # (AUTO) 0.1 10^3/uL (0.0-0.3); EOSINOPHILS % (AUTO) 1 % (0-10); HEMATOCRIT 40 % (35-52); HEMOGLOBIN 13.6 G/DL (11.5-16.0); LYMPHOCYTES # (AUTO) 0.9 X 10^3 (1.0-4.0); LYMPHOCYTES % (AUTO) 13 % (12-44); MEAN CORPUSCULAR HEMOGLOBIN 30 PG (25-34); MEAN CORPUSCULAR HGB CONC 34 G/DL (32-36); MEAN CORPUSCULAR VOLUME 88 FL (80-99); MEAN PLATELET VOLUME 10.9 FL (7.4-10.4); MONOCYTES # (AUTO) 0.9 X 10^3 (0.0-1.0); MONOCYTES % (AUTO) 12 % (0-12); NEUTROPHILS # (AUTO) 5.5 X 10^3 (1.8-7.8); NEUTROPHILS % (AUTO) 73 % (42-75); PLATELET COUNT 310 10^3/uL (130-400); RED BLOOD COUNT 4.56 10^6/uL (4.35-5.85); RED CELL DISTRIBUTION WIDTH 13.3 % (10.0-14.5); WHITE BLOOD COUNT 7.5 10^3/uL (4.3-11.0)
[2018-01-12 15:29] LABS: ALANINE AMINOTRANSFERASE 17 U/L (0-55); ALBUMIN 4.3 GM/DL (3.2-4.5); ALKALINE PHOSPHATASE 71 U/L (40-136); BILIRUBIN,TOTAL 0.3 MG/DL (0.1-1.0); BUN/CREATININE RATIO 19; CALCIUM 9.5 MG/DL (8.5-10.1); CARBON DIOXIDE 27 MMOL/L (21-32); CHLORIDE 102 MMOL/L (98-107); CREATININE SERUM 0.83 MG/DL (0.60-1.30); GFR ESTIMATED > 60; GLUCOSE 98 MG/DL (70-105); POTASSIUM 3.9 MMOL/L (3.6-5.0); SODIUM 139 MMOL/L (135-145)
== END 2018-04-12 | disposition home or self-care (01) ==
LOC: ONC 14:05
PROVIDERS: ATTEND Internal Medicine Hematology & Oncology
DX: Z08 Encounter for follow-up examination after completed treatment for malignant neoplasm (principal); Z85.048 Personal history of other malignant neoplasm of rectum, rectosigmoid junction, and anus; Z85.41 Personal history of malignant neoplasm of cervix uteri; E03.9 Hypothyroidism, unspecified; J44.9 Chronic obstructive pulmonary disease, unspecified; F41.9 Anxiety disorder, unspecified; G62.9 Polyneuropathy, unspecified; Z79.899 Other long term (current) drug therapy; Z95.2 Presence of prosthetic heart valve; Z93.3 Colostomy status; Z45.2 Encounter for adjustment and management of vascular access device
CPT/HCPCS: 36591; 80053; 85025; 96523

== ENCOUNTER 2018-03-30 08:02 | Outpatient (RCR) | payer OTHER ==
[2018-03-21 14:50] VITALS: BP 106/84
[2018-03-21] MEDS: methylPREDNISolone 125 MG (Solu-MEDROL) VIAL IV SCH ×2 (15:06→20:45)
[2018-03-21 23:31] VITALS: BP 107/68
[2018-03-22] MEDS: methylPREDNISolone 125 MG (Solu-MEDROL) VIAL IV SCH ×2 (09:28→20:20)
[2018-03-22 09:33] VITALS: BP 110/95
[2018-03-23 07:17] VITALS: BP 110/95
[2018-03-23] MEDS: methylPREDNISolone 125 MG (Solu-MEDROL) VIAL IV SCH ×2 (07:17→19:27)
[2018-03-23 19:25] VITALS: BP 148/83
[2018-03-24 09:15] VITALS: BP 121/95
[2018-03-24] MEDS: methylPREDNISolone 125 MG (Solu-MEDROL) VIAL IV SCH ×2 (09:25→20:04)
[2018-03-24 20:07] VITALS: BP 120/77
[2018-03-25] MEDS: methylPREDNISolone 125 MG (Solu-MEDROL) VIAL IV SCH ×2 (09:55→20:21)
[2018-03-25 09:58] VITALS: BP 123/79
[2018-03-25 22:17] VITALS: BP 135/87
[2018-03-26 09:27] VITALS: BP 111/74
[2018-03-26] MEDS: methylPREDNISolone 125 MG (Solu-MEDROL) VIAL IV SCH ×2 (09:27→19:31)
[2018-03-26 19:23] VITALS: BP 127/76
[2018-03-26 19:31] VITALS: BP 127/76
[2018-03-27 09:40] VITALS: BP 128/85
[2018-03-27] MEDS: methylPREDNISolone 125 MG (Solu-MEDROL) VIAL IV SCH (09:56)
[2018-03-27 21:25] VITALS: BP 128/85
[2018-03-28] MEDS: methylPREDNISolone 125 MG (Solu-MEDROL) VIAL IVP SCH (10:30)
[2018-03-28 10:35] VITALS: BP 121/92
[2018-03-29 09:53] VITALS: BP 124/88
[2018-03-29] MEDS: methylPREDNISolone 125 MG (Solu-MEDROL) VIAL IVP SCH (10:00)
[~2018-03-30] VITALS: Ht 157.5 cm; Wt 52.3 kg
[~2018-03-30 08:02] MED LIST changes: +methylPREDNISolone 125 MG (Solu-MEDROL) VIAL IV SCH; +methylPREDNISolone 125 MG (Solu-MEDROL) VIAL ONE
[2018-03-30] MEDS: methylPREDNISolone 125 MG (Solu-MEDROL) VIAL IVP SCH (08:09)
[2018-03-30 08:14] VITALS: BP 127/94
== END 2018-03-30 08:14 | disposition home or self-care (01) ==
LOC: SDC 08:02
PROVIDERS: ATTEND Nurse Practitioner Family
DX: J44.9 Chronic obstructive pulmonary disease, unspecified (principal); R06.09 Other forms of dyspnea; R05 Cough
CPT/HCPCS: 96374; 96523

== ENCOUNTER 2018-07-11 15:31 | Outpatient (RCR) | payer OTHER ==
[2018-05-04 15:38] LABS: BASOPHILS % (AUTO) 1 % (0-10); EOSINOPHILS # (AUTO) 0.1 10^3/uL (0.0-0.3); EOSINOPHILS % (AUTO) 1 % (0-10); HEMATOCRIT 38 % (35-52); HEMOGLOBIN 12.4 G/DL (11.5-16.0); LYMPHOCYTES # (AUTO) 0.8 X 10^3 (1.0-4.0); LYMPHOCYTES % (AUTO) 15 % (12-44); MEAN CORPUSCULAR HEMOGLOBIN 29 PG (25-34); MEAN CORPUSCULAR HGB CONC 33 G/DL (32-36); MEAN CORPUSCULAR VOLUME 89 FL (80-99); MEAN PLATELET VOLUME 11.4 FL (7.4-10.4); MONOCYTES # (AUTO) 0.5 X 10^3 (0.0-1.0); MONOCYTES % (AUTO) 10 % (0-12); NEUTROPHILS # (AUTO) 3.9 X 10^3 (1.8-7.8); NEUTROPHILS % (AUTO) 73 % (42-75); PLATELET COUNT 253 10^3/uL (130-400); RED CELL DISTRIBUTION WIDTH 13.2 % (10.0-14.5); WHITE BLOOD COUNT 5.3 10^3/uL (4.3-11.0)
[2018-05-04 15:53] LABS: ALANINE AMINOTRANSFERASE 14 U/L (0-55); ALBUMIN 4.2 GM/DL (3.2-4.5); ALKALINE PHOSPHATASE 69 U/L (40-136); BILIRUBIN,TOTAL 0.2 MG/DL (0.1-1.0); BUN/CREATININE RATIO 14; CALCIUM 9.3 MG/DL (8.5-10.1); CARBON DIOXIDE 28 MMOL/L (21-32); CHLORIDE 106 MMOL/L (98-107); CREATININE SERUM 0.77 MG/DL (0.60-1.30); GFR ESTIMATED > 60; GLUCOSE 112 MG/DL (70-105); POTASSIUM 3.5 MMOL/L (3.6-5.0); SODIUM 145 MMOL/L (135-145); TOTAL PROTEIN 6.8 GM/DL (6.4-8.2)
[~2018-07-11 15:31] MED LIST changes: +ROFL500T PO; -ROFL500T4 PO; -methylPREDNISolone 125 MG (Solu-MEDROL) VIAL IV SCH; -methylPREDNISolone 125 MG (Solu-MEDROL) VIAL ONE
== END 2018-08-02 | disposition home or self-care (01) ==
LOC: ONC 15:31
PROVIDERS: ATTEND Internal Medicine Hematology & Oncology
DX: Z08 Encounter for follow-up examination after completed treatment for malignant neoplasm (principal); Z85.048 Personal history of other malignant neoplasm of rectum, rectosigmoid junction, and anus; Z85.41 Personal history of malignant neoplasm of cervix uteri; E03.9 Hypothyroidism, unspecified; J44.9 Chronic obstructive pulmonary disease, unspecified; F41.9 Anxiety disorder, unspecified; G62.9 Polyneuropathy, unspecified; Z79.899 Other long term (current) drug therapy; Z95.2 Presence of prosthetic heart valve; Z93.3 Colostomy status
CPT/HCPCS: 36591; 80053; 82378; 84443; 85025; 96523

== ENCOUNTER 2018-10-16 10:15 | Outpatient (RCR) | payer OTHER ==
[2018-08-31 14:48] LABS: BASOPHILS # (AUTO) 0.1 10^3/uL (0.0-0.1); BASOPHILS % (AUTO) 1 % (0-10); EOSINOPHILS # (AUTO) 0.1 10^3/uL (0.0-0.3); EOSINOPHILS % (AUTO) 2 % (0-10); HEMATOCRIT 37 % (35-52); HEMOGLOBIN 12.6 G/DL (11.5-16.0); LYMPHOCYTES # (AUTO) 0.8 X 10^3 (1.0-4.0); LYMPHOCYTES % (AUTO) 15 % (12-44); MEAN CORPUSCULAR HEMOGLOBIN 29 PG (25-34); MEAN CORPUSCULAR HGB CONC 34 G/DL (32-36); MEAN CORPUSCULAR VOLUME 87 FL (80-99); MEAN PLATELET VOLUME 10.8 FL (7.4-10.4); MONOCYTES # (AUTO) 0.5 X 10^3 (0.0-1.0); MONOCYTES % (AUTO) 10 % (0-12); NEUTROPHILS % (AUTO) 72 % (42-75); PLATELET COUNT 252 10^3/uL (130-400); RED CELL DISTRIBUTION WIDTH 13.7 % (10.0-14.5); WHITE BLOOD COUNT 5.5 10^3/uL (4.3-11.0)
[2018-08-31 15:06] LABS: ALANINE AMINOTRANSFERASE 17 U/L (0-55); ALBUMIN 4.1 GM/DL (3.2-4.5); ALKALINE PHOSPHATASE 85 U/L (40-136); BILIRUBIN,TOTAL 0.2 MG/DL (0.1-1.0); BUN/CREATININE RATIO 23; CALCIUM 8.8 MG/DL (8.5-10.1); CARBON DIOXIDE 23 MMOL/L (21-32); CHLORIDE 106 MMOL/L (98-107); CREATININE SERUM 0.82 MG/DL (0.60-1.30); GFR ESTIMATED > 60; GLUCOSE 107 MG/DL (70-105); POTASSIUM 3.8 MMOL/L (3.6-5.0); SODIUM 143 MMOL/L (135-145); TOTAL PROTEIN 6.7 GM/DL (6.4-8.2)
== END 2018-11-29 | disposition home or self-care (01) ==
LOC: ONC 10:15
PROVIDERS: ATTEND Internal Medicine Hematology & Oncology
DX: Z08 Encounter for follow-up examination after completed treatment for malignant neoplasm (principal); Z85.048 Personal history of other malignant neoplasm of rectum, rectosigmoid junction, and anus; Z85.41 Personal history of malignant neoplasm of cervix uteri; E03.9 Hypothyroidism, unspecified; J44.9 Chronic obstructive pulmonary disease, unspecified; F41.9 Anxiety disorder, unspecified; G62.9 Polyneuropathy, unspecified; Z79.899 Other long term (current) drug therapy; Z95.2 Presence of prosthetic heart valve; Z93.3 Colostomy status
CPT/HCPCS: 36591; 80053; 84443; 85025; 96523

== ENCOUNTER 2019-01-09 15:43 | Outpatient (RCR) | payer OTHER ==
[2019-02-08 15:51] LABS: BASOPHILS # (AUTO) 0.1 10^3/uL (0.0-0.1); BASOPHILS % (AUTO) 1 % (0-10); EOSINOPHILS # (AUTO) 0.2 10^3/uL (0.0-0.3); EOSINOPHILS % (AUTO) 3 % (0-10); HEMATOCRIT 40 % (35-52); HEMOGLOBIN 13.4 G/DL (11.5-16.0); LYMPHOCYTES # (AUTO) 1.1 X 10^3 (1.0-4.0); LYMPHOCYTES % (AUTO) 16 % (12-44); MEAN CORPUSCULAR HEMOGLOBIN 29 PG (25-34); MEAN CORPUSCULAR HGB CONC 33 G/DL (32-36); MEAN CORPUSCULAR VOLUME 87 FL (80-99); MEAN PLATELET VOLUME 10.9 FL (7.4-10.4); MONOCYTES # (AUTO) 0.8 X 10^3 (0.0-1.0); MONOCYTES % (AUTO) 12 % (0-12); NEUTROPHILS # (AUTO) 4.5 X 10^3 (1.8-7.8); NEUTROPHILS % (AUTO) 68 % (42-75); PLATELET COUNT 274 10^3/uL (130-400); RED CELL DISTRIBUTION WIDTH 13.4 % (10.0-14.5); WHITE BLOOD COUNT 6.7 10^3/uL (4.3-11.0)
[2019-02-08 16:12] LABS: ALANINE AMINOTRANSFERASE 96 U/L (0-55); ALBUMIN 4.4 GM/DL (3.2-4.5); ALKALINE PHOSPHATASE 105 U/L (40-136); BILIRUBIN,TOTAL 0.6 MG/DL (0.1-1.0); BUN/CREATININE RATIO 23; CALCIUM 9.8 MG/DL (8.5-10.1); CARBON DIOXIDE 28 MMOL/L (21-32); CHLORIDE 101 MMOL/L (98-107); CREATININE SERUM 0.75 MG/DL (0.60-1.30); GFR ESTIMATED > 60; GLUCOSE 94 MG/DL (70-105); SODIUM 140 MMOL/L (135-145); TOTAL PROTEIN 7.3 GM/DL (6.4-8.2)
== END 2019-02-08 15:30 | disposition home or self-care (01) ==
LOC: ONC 15:43
PROVIDERS: ATTEND Internal Medicine Hematology & Oncology
DX: Z45.2 Encounter for adjustment and management of vascular access device (principal); C20 Malignant neoplasm of rectum; J44.9 Chronic obstructive pulmonary disease, unspecified; E03.9 Hypothyroidism, unspecified
CPT/HCPCS: 80053; 82378; 85025; 96523

== ENCOUNTER → 2019-02-08 | Outpatient (CLI) | payer OTHER ==
[~2019-02-08] MED LIST changes: +BARIUM SUSPENSION 2.1% (VANILLA SILQ) 450 ML PO ONE; +CATHETER FLUSH 10 ML SYR IV PRN; +HOLD METFORMIN - RECEIVED CONTRAST 20 ML VIAL IV SCH; +IOHEXOL 350 MG/ML 100 ML (OMNIPAQUE 350) VIAL IV ONE; +NS 100 ML (IVPB) BAG IV ONE
--- NOTE | 2019-02-08 16:52 | Diagnostic Imaging Report ---
PROCEDURE: CT chest, abdomen, and pelvis with contrast. TECHNIQUE: Multiple contiguous axial images were obtained through the chest, abdomen, and pelvis after the administration of intravenous contrast. Auto Exposure Controls were utilized during the CT exam to meet ALARA standards for radiation dose reduction. INDICATION: Rectal cancer. COMPARISON: 10/20/2017 and 05/25/2017 and 07/19/2016. FINDINGS: Calcified mediastinal and hilar lymph nodes are present. No pathologically enlarged lymph nodes within the chest. No aneurysmal dilatation of the thoracic aorta. The heart is within normal limits in size. No pericardial effusion. No pleural effusion. No pneumothorax. Background emphysematous changes are again noted with associated pulmonary hyperinflation. Scarring within the right upper lobe. Calcified granuloma within the right lower lobe. Previously noted bilateral tree-in-bud nodularity has resolved. No new focal pulmonary opacity or nodule. No acute osseous abnormality within the chest. The liver is unremarkable. Calcified splenic granuloma. Otherwise, the spleen is unremarkable. The adrenal glands are unremarkable. The pancreas is unremarkable. The gallbladder is unremarkable. The bilateral kidneys and ureters are unremarkable. Postsurgical changes are again noted associated with the distal colon/rectum with creation of a left lower quadrant colostomy. No new or increasing soft tissue density within the presacral region. No bowel obstruction or pneumatosis. No significant adenopathy, free air, or free fluid within the abdomen or pelvis. Mild scattered vascular calcifications without aneurysmal dilatation of the abdominal aorta. No acute osseous abnormality with scattered osseous degenerative changes. IMPRESSION: 1. No evidence of metastatic disease. 2. Interval resolution of previously noted bilateral pulmonary tree-in-bud nodularity. 3. Background emphysematous changes. 4. Additional postsurgical and chronic findings as above. Dictated by: Dictated on workstation # [id number]
== END ==
LOC: RAD 15:05
PROVIDERS: ATTEND Internal Medicine Hematology & Oncology
DX: C20 Malignant neoplasm of rectum (principal); J43.9 Emphysema, unspecified; Z98.890 Other specified postprocedural states
CPT/HCPCS: 71260; 74177

== ENCOUNTER 2019-04-23 13:44 | Outpatient (RCR) | payer OTHER ==
[~2019-04-23 13:44] MED LIST changes: -BARIUM SUSPENSION 2.1% (VANILLA SILQ) 450 ML PO ONE; -CATHETER FLUSH 10 ML SYR IV PRN; -HOLD METFORMIN - RECEIVED CONTRAST 20 ML VIAL IV SCH; -IOHEXOL 350 MG/ML 100 ML (OMNIPAQUE 350) VIAL IV ONE; -NS 100 ML (IVPB) BAG IV ONE
[2019-04-23 14:03] LABS: BASOPHILS # (AUTO) 0.1 10^3/uL (0.0-0.1); BASOPHILS % (AUTO) 1 % (0-10); EOSINOPHILS # (AUTO) 0.2 10^3/uL (0.0-0.3); EOSINOPHILS % (AUTO) 2 % (0-10); HEMATOCRIT 43 % (35-52); HEMOGLOBIN 14.5 G/DL (11.5-16.0); LYMPHOCYTES # (AUTO) 1.3 X 10^3 (1.0-4.0); LYMPHOCYTES % (AUTO) 18 % (12-44); MEAN CORPUSCULAR HEMOGLOBIN 29 PG (25-34); MEAN CORPUSCULAR HGB CONC 34 G/DL (32-36); MEAN CORPUSCULAR VOLUME 86 FL (80-99); MEAN PLATELET VOLUME 11.3 FL (7.4-10.4); MONOCYTES # (AUTO) 0.8 X 10^3 (0.0-1.0); MONOCYTES % (AUTO) 12 % (0-12); NEUTROPHILS # (AUTO) 4.9 X 10^3 (1.8-7.8); NEUTROPHILS % (AUTO) 68 % (42-75); PLATELET COUNT 294 10^3/uL (130-400); RED CELL DISTRIBUTION WIDTH 12.9 % (10.0-14.5); WHITE BLOOD COUNT 7.2 10^3/uL (4.3-11.0)
[2019-04-23 14:31] LABS: ALANINE AMINOTRANSFERASE 23 U/L (0-55); ALBUMIN 4.7 GM/DL (3.2-4.5); ALKALINE PHOSPHATASE 106 U/L (40-136); BILIRUBIN,TOTAL 0.6 MG/DL (0.1-1.0); BUN/CREATININE RATIO 15; CARBON DIOXIDE 28 MMOL/L (21-32); CHLORIDE 98 MMOL/L (98-107); CREATININE SERUM 0.91 MG/DL (0.60-1.30); GFR ESTIMATED > 60; GLUCOSE 97 MG/DL (70-105); POTASSIUM 3.6 MMOL/L (3.6-5.0); SODIUM 140 MMOL/L (135-145)
== END 2019-05-09 | disposition home or self-care (01) ==
LOC: ONC 13:44
PROVIDERS: ATTEND Internal Medicine Hematology & Oncology
DX: Z08 Encounter for follow-up examination after completed treatment for malignant neoplasm (principal); Z85.048 Personal history of other malignant neoplasm of rectum, rectosigmoid junction, and anus; Z85.41 Personal history of malignant neoplasm of cervix uteri; E03.9 Hypothyroidism, unspecified; J44.9 Chronic obstructive pulmonary disease, unspecified; F41.9 Anxiety disorder, unspecified; G62.9 Polyneuropathy, unspecified; Z79.899 Other long term (current) drug therapy; Z95.2 Presence of prosthetic heart valve; Z93.3 Colostomy status
CPT/HCPCS: 36591; 80053; 85025; 99213

== ENCOUNTER 2019-07-16 12:11 | Outpatient (RCR) | payer OTHER ==
[2019-08-02] MEDS ORDERED: NS (IVPB) 50 ML ONE (04:32)
== END 2019-08-22 | disposition home or self-care (01) ==
LOC: ONC 12:11
PROVIDERS: ATTEND Internal Medicine Hematology & Oncology
DX: Z08 Encounter for follow-up examination after completed treatment for malignant neoplasm (principal); Z85.048 Personal history of other malignant neoplasm of rectum, rectosigmoid junction, and anus; Z85.41 Personal history of malignant neoplasm of cervix uteri; E03.9 Hypothyroidism, unspecified; J44.9 Chronic obstructive pulmonary disease, unspecified; F41.9 Anxiety disorder, unspecified; G62.9 Polyneuropathy, unspecified; Z79.899 Other long term (current) drug therapy; Z95.2 Presence of prosthetic heart valve; Z93.3 Colostomy status
CPT/HCPCS: 96523

== ENCOUNTER 2019-11-27 15:34 | Outpatient (RCR) | payer OTHER ==
[2019-10-11 15:53] LABS: BASOPHILS % (AUTO) 1 % (0-10); EOSINOPHILS # (AUTO) 0.1 10^3/uL (0.0-0.3); EOSINOPHILS % (AUTO) 2 % (0-10); HEMATOCRIT 37 % (35-52); HEMOGLOBIN 12.4 G/DL (11.5-16.0); LYMPHOCYTES % (AUTO) 16 % (12-44); MEAN CORPUSCULAR HEMOGLOBIN 30 PG (25-34); MEAN CORPUSCULAR HGB CONC 33 G/DL (32-36); MEAN CORPUSCULAR VOLUME 90 FL (80-99); MEAN PLATELET VOLUME 11.3 FL (7.4-10.4); MONOCYTES # (AUTO) 0.7 X 10^3 (0.0-1.0); MONOCYTES % (AUTO) 11 % (0-12); NEUTROPHILS # (AUTO) 4.4 X 10^3 (1.8-7.8); NEUTROPHILS % (AUTO) 70 % (42-75); PLATELET COUNT 266 10^3/uL (130-400); WHITE BLOOD COUNT 6.3 10^3/uL (4.3-11.0)
[2019-10-11 16:13] LABS: ALANINE AMINOTRANSFERASE 54 U/L (0-55); ALKALINE PHOSPHATASE 104 U/L (40-136); BILIRUBIN,TOTAL 0.2 MG/DL (0.1-1.0); BUN/CREATININE RATIO 23; CALCIUM 8.8 MG/DL (8.5-10.1); CARBON DIOXIDE 27 MMOL/L (21-32); CHLORIDE 103 MMOL/L (98-107); CREATININE SERUM 0.78 MG/DL (0.60-1.30); GFR ESTIMATED > 60; GLUCOSE 88 MG/DL (70-105); POTASSIUM 3.8 MMOL/L (3.6-5.0); SODIUM 141 MMOL/L (135-145); TOTAL PROTEIN 6.7 GM/DL (6.4-8.2)
[~2019-11-27 15:34] MED LIST changes: +RT-ALBUTEROL/IPRATROPIUM 3 ML (DUONEB) VIAL ONE
== END 2020-01-09 | disposition home or self-care (01) ==
LOC: ONC 15:34
PROVIDERS: ATTEND Internal Medicine Hematology & Oncology
DX: Z08 Encounter for follow-up examination after completed treatment for malignant neoplasm (principal); Z85.048 Personal history of other malignant neoplasm of rectum, rectosigmoid junction, and anus; Z85.41 Personal history of malignant neoplasm of cervix uteri; E03.9 Hypothyroidism, unspecified; J44.9 Chronic obstructive pulmonary disease, unspecified; F41.9 Anxiety disorder, unspecified; G62.9 Polyneuropathy, unspecified; Z79.899 Other long term (current) drug therapy; Z95.2 Presence of prosthetic heart valve; Z93.3 Colostomy status
CPT/HCPCS: 80053; 82378; 85025; 96523; 99213

== ENCOUNTER 2020-02-26 15:50 | Outpatient (RCR) | payer OTHER ==
[~2020-02-26 15:50] MED LIST changes: -RT-ALBUTEROL/IPRATROPIUM 3 ML (DUONEB) VIAL ONE
== END 2020-04-09 | disposition home or self-care (01) ==
LOC: ONC 15:50
PROVIDERS: ATTEND Internal Medicine Hematology & Oncology
DX: Z45.2 Encounter for adjustment and management of vascular access device (principal); E03.9 Hypothyroidism, unspecified; J44.9 Chronic obstructive pulmonary disease, unspecified; F41.9 Anxiety disorder, unspecified; G62.9 Polyneuropathy, unspecified; Z85.048 Personal history of other malignant neoplasm of rectum, rectosigmoid junction, and anus; Z85.41 Personal history of malignant neoplasm of cervix uteri; Z95.2 Presence of prosthetic heart valve; Z93.3 Colostomy status; Z92.21 Personal history of antineoplastic chemotherapy; Z98.890 Other specified postprocedural states; Z79.899 Other long term (current) drug therapy
CPT/HCPCS: 96523

== ENCOUNTER 2020-08-06 11:02 | Outpatient (RCR) | payer OTHER ==
[2020-05-13 16:12] LABS: BASOPHILS # (AUTO) 0.1 10^3/uL (0.0-0.1); BASOPHILS % (AUTO) 1 % (0-10); EOSINOPHILS # (AUTO) 0.2 10^3/uL (0.0-0.3); EOSINOPHILS % (AUTO) 3 % (0-10); HEMATOCRIT 38 % (35-52); HEMOGLOBIN 12.4 g/dL (11.5-16.0); LYMPHOCYTES % (AUTO) 14 % (12-44); MEAN CORPUSCULAR HEMOGLOBIN 30 pg (25-34); MEAN CORPUSCULAR HGB CONC 33 g/dL (32-36); MEAN CORPUSCULAR VOLUME 92 fL (80-99); MEAN PLATELET VOLUME 11.5 fL (9.0-12.2); MONOCYTES # (AUTO) 0.8 10^3/uL (0.0-1.0); MONOCYTES % (AUTO) 11 % (0-12); NEUTROPHILS % (AUTO) 69 % (42-75); PLATELET COUNT 258 10^3/uL (130-400); WHITE BLOOD COUNT 7.3 10^3/uL (4.3-11.0)
[2020-05-13 16:28] LABS: ALANINE AMINOTRANSFERASE 35 U/L (0-55); ALBUMIN 4.1 GM/DL (3.2-4.5); ALKALINE PHOSPHATASE 86 U/L (40-136); BILIRUBIN,TOTAL 0.2 MG/DL (0.1-1.0); BUN/CREATININE RATIO 30; CARBON DIOXIDE 27 MMOL/L (21-32); CHLORIDE 100 MMOL/L (98-107); CREATININE SERUM 0.76 MG/DL (0.60-1.30); GFR ESTIMATED > 60; GLUCOSE 100 MG/DL (70-105); POTASSIUM 3.8 MMOL/L (3.6-5.0); SODIUM 138 MMOL/L (135-145)
[~2020-08-06 11:02] MED LIST changes: -CIPR500T4 PO; +CIPR500T5 PO; -POLY17PO31 PO; +POLY17PO54 PO
== END 2020-08-11 | disposition home or self-care (01) ==
LOC: ONC 11:02
PROVIDERS: ATTEND Internal Medicine Hematology & Oncology
DX: Z45.2 Encounter for adjustment and management of vascular access device (principal); C20 Malignant neoplasm of rectum; E03.9 Hypothyroidism, unspecified; J44.9 Chronic obstructive pulmonary disease, unspecified; F41.9 Anxiety disorder, unspecified; G62.9 Polyneuropathy, unspecified; Z85.048 Personal history of other malignant neoplasm of rectum, rectosigmoid junction, and anus; Z85.41 Personal history of malignant neoplasm of cervix uteri; Z95.2 Presence of prosthetic heart valve; Z93.3 Colostomy status; Z92.21 Personal history of antineoplastic chemotherapy; Z98.890 Other specified postprocedural states; Z79.899 Other long term (current) drug therapy
CPT/HCPCS: 36591; 80053; 85025; 96523; 99213

== ENCOUNTER → 2020-10-28 | Outpatient (CLI) | payer OTHER ==
[2020-10-28 10:37] LABS: BASOPHILS % (AUTO) 1 % (0-10); EOSINOPHILS # (AUTO) 0.1 10^3/uL (0.0-0.3); EOSINOPHILS % (AUTO) 2 % (0-10); HEMATOCRIT 42 % (35-52); HEMOGLOBIN 13.3 g/dL (11.5-16.0); LYMPHOCYTES # (AUTO) 0.9 10^3/uL (1.0-4.0); LYMPHOCYTES % (AUTO) 13 % (12-44); MEAN CORPUSCULAR HEMOGLOBIN 29 pg (25-34); MEAN CORPUSCULAR HGB CONC 32 g/dL (32-36); MEAN CORPUSCULAR VOLUME 92 fL (80-99); MONOCYTES # (AUTO) 0.6 10^3/uL (0.0-1.0); MONOCYTES % (AUTO) 9 % (0-12); NEUTROPHILS # (AUTO) 5.2 10^3/uL (1.8-7.8); NEUTROPHILS % (AUTO) 75 % (42-75); PLATELET COUNT 270 10^3/uL (130-400); WHITE BLOOD COUNT 6.9 10^3/uL (4.3-11.0)
[2020-10-28 10:47] LABS: ALANINE AMINOTRANSFERASE 16 U/L (0-55); ALKALINE PHOSPHATASE 76 U/L (40-136); BILIRUBIN,TOTAL 0.4 MG/DL (0.1-1.0); BUN/CREATININE RATIO 21; CALCIUM 8.9 MG/DL (8.5-10.1); CARBON DIOXIDE 28 MMOL/L (21-32); CHLORIDE 102 MMOL/L (98-107); CHOLESTEROL 263 MG/DL (< 200); CREATININE SERUM 0.84 MG/DL (0.60-1.30); GFR ESTIMATED > 60; GLUCOSE 98 MG/DL (70-105); HDL CHOLESTEROL 83 MG/DL (40-60); POTASSIUM 4.1 MMOL/L (3.6-5.0); SODIUM 140 MMOL/L (135-145); TOTAL PROTEIN 6.7 GM/DL (6.4-8.2); TRIGLYCERIDES 202 MG/DL (<150); VLDL CHOLESTEROL 40 MG/DL (5-40)
== END ==
LOC: LAB 10:10
DX: Z13.220 Encounter for screening for lipoid disorders (principal); R53.83 Other fatigue; R73.09 Other abnormal glucose
CPT/HCPCS: 36415; 80053; 80061; 83036; 84443; 85025

== ENCOUNTER 2020-12-10 21:55 | Emergency (ER) | payer OTHER ==
[~2020-12-10] VITALS: Ht 157.5 cm; Wt 68.0 kg
[2020-12-10 21:55] VITALS: BP 185/125
[2020-12-10] MEDS ORDERED: ONDANSETRON 4 MG/2 ML (SDV) Z0FRAN ONE (22:13)
[2020-12-10 22:15] LABS: BASOPHILS # (AUTO) 0.1 10^3/uL (0.0-0.1); BASOPHILS % (AUTO) 1 % (0-10); EOSINOPHILS # (AUTO) 0.3 10^3/uL (0.0-0.3); EOSINOPHILS % (AUTO) 3 % (0-10); HEMATOCRIT 45 % (35-52); HEMOGLOBIN 14.4 g/dL (11.5-16.0); LYMPHOCYTES # (AUTO) 1.5 10^3/uL (1.0-4.0); LYMPHOCYTES % (AUTO) 14 % (12-44); MEAN CORPUSCULAR HEMOGLOBIN 30 pg (25-34); MEAN CORPUSCULAR HGB CONC 32 g/dL (32-36); MEAN CORPUSCULAR VOLUME 93 fL (80-99); MEAN PLATELET VOLUME 10.7 fL (9.0-12.2); MONOCYTES # (AUTO) 1.1 10^3/uL (0.0-1.0); MONOCYTES % (AUTO) 10 % (0-12); NEUTROPHILS # (AUTO) 7.1 10^3/uL (1.8-7.8); NEUTROPHILS % (AUTO) 68 % (42-75); PLATELET COUNT 340 10^3/uL (130-400); WHITE BLOOD COUNT 10.4 10^3/uL (4.3-11.0)
[2020-12-10] MEDS ORDERED: ONDANSETRON 4 MG/2 ML (SDV) Z0FRAN IVP ONE (22:15)
[2020-12-10 22:21] LABS: INR 0.8 (0.8-1.4); PROTHROMBIN TIME PATIENT 11.7 SEC (12.2-14.7)
[2020-12-10 22:25] LABS: ALBUMIN 4.5 GM/DL (3.2-4.5); BILIRUBIN,TOTAL 0.5 MG/DL (0.1-1.0); CALCIUM 10.1 MG/DL (8.5-10.1); CREATININE SERUM 0.88 MG/DL (0.60-1.30); POTASSIUM 3.5 MMOL/L (3.6-5.0); TOTAL PROTEIN 7.8 GM/DL (6.4-8.2)
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
[2020-12-10] MEDS ORDERED: CATHETER FLUSH 10 ML SYR IV PRN (23:00)
[2020-12-10] MEDS ORDERED: IOHEXOL 350 MG/ML 100 ML (OMNIPAQUE 350) VIAL IV ONE (23:00)
[2020-12-10] MEDS ORDERED: NS 100 ML (IVPB) BAG IV ONE (23:00)
[2020-12-10] MEDS ORDERED: HOLD METFORMIN - RECEIVED CONTRAST 20 ML VIAL IV SCH (23:00)
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
[2020-12-10 23:17] LABS: BILIRUBIN,URINE NEGATIVE (NEGATIVE); CLARITY,URINE CLEAR; COLOR,URINE YELLOW; GLUCOSE, URINE (UA) NEGATIVE (NEGATIVE); KETONES,URINE NEGATIVE (NEGATIVE); LEUKOCYTE ESTERASE ,URINE 1+ (NEGATIVE); NITRITE,URINE NEGATIVE (NEGATIVE); PH,URINE 6.5 (5-9); PROTEIN,URINE NEGATIVE (NEGATIVE)
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
[2020-12-10 23:43] LABS: BACTERIA,URINE NEGATIVE /HPF; RBC,URINE 0-2 /HPF; RENAL EPITHELIAL CELLS,URINE 0-2 /HPF; SQUAMOUS EPITHELIAL CELL,UR 0-2 /HPF; YEAST,URINE FEW /HPF
[2020-12-10 23:46] LABS: AMPHETAMINE SCREEN, URINE NEGATIVE (NEGATIVE); BARBITURATE SCREEN URINE NEGATIVE (NEGATIVE); BENZODIAZEPINES SCREEN URINE POSITIVE (NEGATIVE); CANNABINOID SCREEN, URINE NEGATIVE (NEGATIVE); COCAINE SCREEN URINE NEGATIVE (NEGATIVE); METHADONE STAT NEGATIVE (NEGATIVE); METHAMPHETAMINE SCREEN URINE S NEGATIVE (NEGATIVE); OPIATE SCREEN URINE POSITIVE (NEGATIVE); OXYCODONE STAT NEGATIVE (NEGATIVE); PROPOXYPHENE STAT NEGATIVE (NEGATIVE); TRICYCLIC ANTIDEPRESSANTS SCRE NEGATIVE (NEGATIVE)
== END 2020-12-10 23:45 | disposition home or self-care (01) ==
LOC: EDUNIT# 21:55 → ER 21:56
DX: S00.33XA Contusion of nose, initial encounter (principal); S00.12XA Contusion of left eyelid and periocular area, initial encounter; S00.11XA Contusion of right eyelid and periocular area, initial encounter; S06.9X9A Unspecified intracranial injury with loss of consciousness of unspecified duration, initial encounter; F10.129 Alcohol abuse with intoxication, unspecified; J44.9 Chronic obstructive pulmonary disease, unspecified; E03.9 Hypothyroidism, unspecified; F41.9 Anxiety disorder, unspecified; R40.2410 Glasgow coma scale score 13-15, unspecified time; Z87.891 Personal history of nicotine dependence; Z79.82 Long term (current) use of aspirin; Z79.52 Long term (current) use of systemic steroids; Z79.01 Long term (current) use of anticoagulants; Z79.890 Hormone replacement therapy; Z79.899 Other long term (current) drug therapy; V89.2XXA Person injured in unspecified motor-vehicle accident, traffic, initial encounter
CPT/HCPCS: 70450; 70486; 71045; 71260; 72125; 72128; 72131; 74177; 80053; 80306; 81000; 83690; 85025; 85610; 85730; 93041; 94760; 99285; G0480; 36415; 80320

== ENCOUNTER 2020-12-17 13:54 | Outpatient (RCR) | payer OTHER | END 2020-12-23 | disposition home or self-care (01) | LOC: ONC 13:54 | PROVIDERS: ATTEND Internal Medicine Hematology & Oncology | DX: Z45.2 Encounter for adjustment and management of vascular access device (principal); C20 Malignant neoplasm of rectum; E03.9 Hypothyroidism, unspecified; J44.9 Chronic obstructive pulmonary disease, unspecified; F41.9 Anxiety disorder, unspecified; G62.9 Polyneuropathy, unspecified; Z85.048 Personal history of other malignant neoplasm of rectum, rectosigmoid junction, and anus; Z85.41 Personal history of malignant neoplasm of cervix uteri; Z95.2 Presence of prosthetic heart valve; Z93.3 Colostomy status; Z92.21 Personal history of antineoplastic chemotherapy; Z98.890 Other specified postprocedural states; Z79.899 Other long term (current) drug therapy | CPT/HCPCS: 36591; 96523 ==

== ENCOUNTER 2021-02-20 14:25 | Outpatient (RCR) | payer OTHER | END 2021-04-10 | disposition home or self-care (01) | LOC: ONC 14:25 | PROVIDERS: ATTEND Internal Medicine Hematology & Oncology | DX: Z45.2 Encounter for adjustment and management of vascular access device (principal); C20 Malignant neoplasm of rectum; E03.9 Hypothyroidism, unspecified; J44.9 Chronic obstructive pulmonary disease, unspecified; Z85.41 Personal history of malignant neoplasm of cervix uteri; Z95.2 Presence of prosthetic heart valve; Z93.3 Colostomy status; Z92.21 Personal history of antineoplastic chemotherapy; Z98.890 Other specified postprocedural states; Z79.899 Other long term (current) drug therapy | CPT/HCPCS: 96523 ==

== ENCOUNTER → 2021-04-22 | Outpatient (CLI) | payer OTHER ==
--- NOTE | 2021-04-22 16:59 | Diagnostic Imaging Report ---
INDICATION: Palpable lump right breast. Correlation is made with prior mammogram from 08/21/2013 and 09/10/2010. 2-D and 3-D bilateral diagnostic mammography was performed with CAD. A BB marker was placed at the area of palpable abnormality in the upper outer right breast posteriorly. Overall breast parenchymal density has significantly decreased since the prior study from 2013. There is now scattered fibroglandular elements bilaterally. A mixed, primarily fat density in the upper outer right breast at the area palpable abnormality is noted, fibroadenolipoma. Further evaluation ultrasound is recommended. No consistent no malignant-appearing microcalcifications are seen. Left breast is unremarkable. Axillae are unremarkable. IMPRESSION: There is a mixed density lesion in the upper outer right breast posterior depth, primarily fat-containing and suggestive of a fibroadenolipoma. Further evaluation with ultrasound is recommended and will be performed today. BI-RADS Category 0 ACR BI-RADS Category 0: Incomplete. (Needs additional imaging evaluation). Result letter will be mailed to the patient. Note: At least 10% of breast cancer is not imaged by mammography. Dictated by: Dictated on workstation # [id number]
--- NOTE | 2021-04-22 17:05 | Diagnostic Imaging Report ---
INDICATION: Right breast lump. Correlation is made with diagnostic mammogram earlier same day. Sonographic interrogation of the area of lump in the upper-outer right breast was performed. There is a circumscribed, mixed echogenicity lesion at the 10 o'clock location of the right breast, 8-9 cm from the nipple. This measures 3.4 x 1.5 x 3.2 cm. This corresponds to the next density lesion noted mammographically and is most suggestive of a fibroadenolipoma. There is some minimal internal vascularity. No other masses are detected. IMPRESSION: Findings most suggestive of a fibroadenolipoma at the area of palpable abnormality in the upper outer right breast. After discussing the findings with the patient, patient expressed interest in undergoing a biopsy due to significant family history of breast carcinoma. This would be amenable to ultrasound-guided biopsy approach, therefore ultrasound-guided biopsy would be recommended. BI-RADS Category 3 ACR BI-RADS Category 3: Probably benign findings. Result letter will be mailed to the patient. Note: At least 10% of breast cancer is not imaged by mammography. Dictated by: Dictated on workstation # [id number]
== END ==
LOC: RAD 13:45
DX: N63.11 Unspecified lump in the right breast, upper outer quadrant (principal)
CPT/HCPCS: 76642; 77066; G0279; 77062

== ENCOUNTER 2021-05-06 13:41 | Outpatient (RCR) | payer OTHER ==
[~2021-05-06 13:41] MED LIST changes: -LIDOCAINE 1% INJ 20 ML VIAL INJ ONE; -LIDOCAINE 1% INJ 20 ML VIAL ONE
== END 2021-05-11 | disposition home or self-care (01) ==
LOC: ONC 13:41
PROVIDERS: ATTEND Internal Medicine Hematology & Oncology
DX: Z45.2 Encounter for adjustment and management of vascular access device (principal); C20 Malignant neoplasm of rectum; E03.9 Hypothyroidism, unspecified; J44.9 Chronic obstructive pulmonary disease, unspecified; F41.9 Anxiety disorder, unspecified; G62.9 Polyneuropathy, unspecified; Z95.2 Presence of prosthetic heart valve; Z93.3 Colostomy status; Z92.21 Personal history of antineoplastic chemotherapy; Z79.899 Other long term (current) drug therapy
CPT/HCPCS: 88305

== ENCOUNTER → 2021-05-06 | Outpatient (CLI) | payer OTHER ==
[~2021-05-06] VITALS: Ht 157 cm; Wt 68.0 kg
[~2021-05-06] MED LIST changes: +LIDOCAINE 1% INJ 20 ML VIAL INJ ONE; +LIDOCAINE 1% INJ 20 ML VIAL ONE
--- NOTE | 2021-05-06 13:42 | Diagnostic Imaging Report ---
INDICATION: Right breast mass. Patient presents for ultrasound guided core biopsy. Patient brought into the sonographic suite and placed on table in supine position. Ultrasound imaging of the right breast was performed to evaluate appropriate entry site. The right breast was then prepped and draped in usual sterile fashion. Small amount of 1% lidocaine was utilized for local anesthesia. A total of 3 core biopsies of the mixed echogenicity mass at the 10:00 location right breast, 8 to 9 cm from the nipple was performed utilizing a 14-gauge achieve needle. A marker clip was then deployed. Hemostasis was obtained using manual compression. Patient tolerated procedure well and left the department in stable condition. IMPRESSION: Successful ultrasound guided core biopsy of right breast mass 10:00 location. Pathology results are currently pending. Dictated by: Dictated on workstation # [id number]
== END ==
LOC: RAD 13:00
DX: N63.10 Unspecified lump in the right breast, unspecified quadrant (principal)
CPT/HCPCS: 19083

== ENCOUNTER 2021-07-16 14:05 | Outpatient (RCR) | payer OTHER ==
[2021-07-16 14:37] LABS: BASOPHILS # (AUTO) 0.1 10^3/uL (0.0-0.1); BASOPHILS % (AUTO) 1 % (0-10); EOSINOPHILS # (AUTO) 0.2 10^3/uL (0.0-0.3); EOSINOPHILS % (AUTO) 3 % (0-10); HEMATOCRIT 41 % (35-52); LYMPHOCYTES # (AUTO) 0.8 10^3/uL (1.0-4.0); LYMPHOCYTES % (AUTO) 11 % (12-44); MEAN CORPUSCULAR HEMOGLOBIN 28 pg (25-34); MEAN CORPUSCULAR HGB CONC 32 g/dL (32-36); MEAN CORPUSCULAR VOLUME 88 fL (80-99); MEAN PLATELET VOLUME 11.5 fL (9.0-12.2); MONOCYTES # (AUTO) 0.6 10^3/uL (0.0-1.0); MONOCYTES % (AUTO) 8 % (0-12); NEUTROPHILS # (AUTO) 5.4 10^3/uL (1.8-7.8); NEUTROPHILS % (AUTO) 77 % (42-75); PLATELET COUNT 256 10^3/uL (130-400)
[2021-07-16 14:47] LABS: ALBUMIN 4.1 GM/DL (3.2-4.5); POTASSIUM 4.7 MMOL/L (3.6-5.0)
[2021-07-16 14:49] LABS: CALCIUM 9.2 MG/DL (8.5-10.1)
[2021-07-16 14:52] LABS: BILIRUBIN,TOTAL 0.2 MG/DL (0.1-1.0)
[2021-07-16 14:54] LABS: CREATININE SERUM 0.77 MG/DL (0.60-1.30)
== END 2021-08-08 | disposition home or self-care (01) ==
LOC: ONC 14:05
PROVIDERS: ATTEND Internal Medicine Hematology & Oncology
DX: C20 Malignant neoplasm of rectum (principal); E03.9 Hypothyroidism, unspecified; Z92.21 Personal history of antineoplastic chemotherapy
CPT/HCPCS: 80053; 85025; G0463; 99213

== ENCOUNTER 2021-08-31 14:19 | Outpatient (RCR) | payer OTHER | END 2021-09-08 | disposition home or self-care (01) | LOC: ONC 14:19 | PROVIDERS: ATTEND Internal Medicine Hematology & Oncology | DX: Z45.2 Encounter for adjustment and management of vascular access device (principal); C20 Malignant neoplasm of rectum; E03.9 Hypothyroidism, unspecified; Z92.21 Personal history of antineoplastic chemotherapy | CPT/HCPCS: 96523 ==

== ENCOUNTER 2021-11-17 15:19 | Outpatient (RCR) | payer OTHER | END 2021-12-09 | disposition home or self-care (01) | LOC: ONC 15:19 | PROVIDERS: ATTEND Internal Medicine Hematology & Oncology | DX: Z45.2 Encounter for adjustment and management of vascular access device (principal); C20 Malignant neoplasm of rectum; E03.9 Hypothyroidism, unspecified; I34.1 Nonrheumatic mitral (valve) prolapse; J44.9 Chronic obstructive pulmonary disease, unspecified; Z92.21 Personal history of antineoplastic chemotherapy; Z86.59 Personal history of other mental and behavioral disorders; Z92.3 Personal history of irradiation; Z85.41 Personal history of malignant neoplasm of cervix uteri | CPT/HCPCS: 96523 ==

== ENCOUNTER 2022-02-18 13:21 | Outpatient (RCR) | payer SELFPAY ==
[2022-02-18 14:32] LABS: BASOPHILS # (AUTO) 0.1 10^3/uL (0.0-0.1); BASOPHILS % (AUTO) 1 % (0-10); EOSINOPHILS # (AUTO) 0.1 10^3/uL (0.0-0.3); EOSINOPHILS % (AUTO) 2 % (0-10); HEMATOCRIT 41 % (35-52); HEMOGLOBIN 13.3 g/dL (11.5-16.0); LYMPHOCYTES % (AUTO) 14 % (12-44); MEAN CORPUSCULAR HEMOGLOBIN 28 pg (25-34); MEAN CORPUSCULAR HGB CONC 33 g/dL (32-36); MEAN CORPUSCULAR VOLUME 86 fL (80-99); MEAN PLATELET VOLUME 12.1 fL (9.0-12.2); MONOCYTES # (AUTO) 0.6 10^3/uL (0.0-1.0); MONOCYTES % (AUTO) 9 % (0-12); NEUTROPHILS # (AUTO) 5.2 10^3/uL (1.8-7.8); NEUTROPHILS % (AUTO) 74 % (42-75); PLATELET COUNT 279 10^3/uL (130-400)
[2022-02-18 14:54] LABS: ALBUMIN 4.2 GM/DL (3.2-4.5); BILIRUBIN,TOTAL 0.3 MG/DL (0.1-1.0); CALCIUM 9.5 MG/DL (8.5-10.1); CREATININE SERUM 0.79 MG/DL (0.60-1.30); POTASSIUM 4.1 MMOL/L (3.6-5.0); TOTAL PROTEIN 7.4 GM/DL (6.4-8.2)
== END 2022-03-10 | disposition home or self-care (01) ==
LOC: ONC 13:21
PROVIDERS: ATTEND Internal Medicine Hematology & Oncology
DX: Z45.2 Encounter for adjustment and management of vascular access device (principal); C20 Malignant neoplasm of rectum; E03.9 Hypothyroidism, unspecified; J44.9 Chronic obstructive pulmonary disease, unspecified; Z92.21 Personal history of antineoplastic chemotherapy; Z86.59 Personal history of other mental and behavioral disorders; Z92.3 Personal history of irradiation; Z85.41 Personal history of malignant neoplasm of cervix uteri
CPT/HCPCS: 80053; 82378; 85025; 96523; G0463; 99213

== ENCOUNTER 2022-08-04 13:02 | Outpatient (RCR) | payer OTHER | END 2022-08-08 | disposition home or self-care (01) | LOC: ONC 13:02 | PROVIDERS: ATTEND Internal Medicine Hematology & Oncology | DX: Z45.2 Encounter for adjustment and management of vascular access device (principal); C20 Malignant neoplasm of rectum; E03.9 Hypothyroidism, unspecified; J44.9 Chronic obstructive pulmonary disease, unspecified; Z92.21 Personal history of antineoplastic chemotherapy; Z86.59 Personal history of other mental and behavioral disorders; Z92.3 Personal history of irradiation; Z85.41 Personal history of malignant neoplasm of cervix uteri | CPT/HCPCS: 96523 ==

== ENCOUNTER 2022-11-18 14:15 | Outpatient (RCR) | payer OTHER | END 2022-12-09 | disposition home or self-care (01) | LOC: ONC 14:15 | PROVIDERS: ATTEND Internal Medicine Hematology & Oncology | DX: Z45.2 Encounter for adjustment and management of vascular access device (principal); C20 Malignant neoplasm of rectum; E03.9 Hypothyroidism, unspecified; J44.9 Chronic obstructive pulmonary disease, unspecified; Z92.21 Personal history of antineoplastic chemotherapy; Z86.59 Personal history of other mental and behavioral disorders; Z92.3 Personal history of irradiation; Z85.41 Personal history of malignant neoplasm of cervix uteri ==